=== PATIENT | male | born 1935 | race Caucasian/White ===

== ENCOUNTER 2016-10-10 14:59 | Inpatient (IN) ==
--- NOTE | 2016-10-10 16:03 | Emergency Department Note ---
Disposition Clinical Impression: Syncope and collapse, ANALISA (acute kidney injury), Hyperkalemia Chest pain Qualifiers: Chest pain type: unspecified Qualified Code(s): R07.9 - Chest pain, unspecified Disposition: Admitted As Inpatient Condition: Good Referrals: NO,PCP [Non-Partnered Physician] - Forms: ED Satisfaction Letter Time of Disposition: 18:33 General Adult HPI - General Chief complaint: ED Syncope Stated complaint: Syncope, EKG changes Time Seen by Provider: 10/10/16 15:12 Source: patient, family Limitations: no limitations Nursing Notes Reviewed: Yes Vital Signs Reviewed: Yes - History of Present Illness HPI Narrative: One-month history of periodic syncope.. Also increasing dyspnea on exertion. Episodic chest pain that radiates up his neck and down both arms. Recent episode of syncope was last night. Is unaware of how long he was down in the floor 4. Denies any headaches or neck pain. Describes the chest pain as an ache. Pain Scale: 0 - Related Data Home Medications Medication Instructions Recorded Confirmed Albuterol Sulfate [Ventolin Hfa] 2 puff IH Q4H PRN 10/10/16 10/10/16 Aspirin Enteric Coated [Aspirin EC] 81 mg PO DAILY 10/10/16 10/10/16 Atorvastatin [Lipitor] 40 mg PO HS 10/10/16 10/10/16 Budesonide/Formoterol 160/4.5 2 puff IH BIDR 10/10/16 10/10/16 [Symbicort 160/4.5] Febuxostat [Uloric] 40 mg PO DAILY 10/10/16 10/10/16 Lisinopril [Zestril] 40 mg PO DAILY 10/10/16 10/10/16 Metoprolol [Lopressor] 50 mg PO BID 10/10/16 10/10/16 Sitagliptin Phos/Metformin HCl 1 each PO BID 10/10/16 10/10/16 [Janumet 50-1,000 mg Tablet] Tamsulosin [Flomax] 0.4 mg PO DAILY 10/10/16 10/10/16 Venlafaxine XR (24 HR) [Effexor XR] 150 mg PO DAILY 10/10/16 10/10/16 Vit C/E/Zn/Coppr/Lutein/Zeaxan 1 cap PO BID 10/10/16 10/10/16 [Preservision Areds 2 Softgel] Allergies Allergy/AdvReac Type Severity Reaction Status Date / Time pioglitazone Allergy Swelling Verified 10/10/16 15:05 of Lip/Tongue/Throat canagliflozin [From Invokana] AdvReac Dizziness Verified 10/10/16 15:05 All systems ED: reviewed and negative except as stated. Constitutional: Denies: fever, chills Cardiovascular: Reports: chest pain (Ache that radiates up his neck and down both arms. Not present at this time. Periodic and worse with exertion.), dyspnea on exertion (For one-month increasingly worse.), syncope (Several episodes over the past month. Most recent being last night.). Denies: palpitations Respiratory: Reports: dyspnea (Associated with the chest pain.). Denies: cough Gastrointestinal: Reports: vomiting (One episode last night). Denies: abdominal pain, nausea, diarrhea Genitourinary: Denies: urgency, dysuria, frequency Musculoskeletal: Denies: back pain, neck pain Past Medical History - Past Medical History Attestation: Yes The following information was validated with the patient. Medical history: Reports: asthma, coronary artery disease, diabetes, hyperlipidemia, hypertension, other Psychiatric history: Reports: depression - Social History Smoking Status: Never smoker Alcohol use: Reports: none Drug use: Reports: none Physical Exam - General Limitations: no limitations General appearance: alert, in no apparent distress - Head Head exam: atraumatic, normocephalic, normal inspection - Eye Eye exam: Present: normal appearance, PERRL, EOMI. Absent: scleral icterus - ENT ENT exam: normal exam, normal oropharynx, mucous membranes moist - Neck Neck exam: Present: normal inspection, full ROM, trachea midline - Chest Chest inspection: Present: normal inspection, symmetric chest wall rise - Respiratory Respiratory exam: Present: normal lung sounds bilaterally. Absent: respiratory distress - Cardiovascular Cardiovascular exam: Present: normal rhythm, bradycardia, normal heart sounds - Abdominal Exam Abdominal exam: Present: soft, Non-Tender, normal bowel sounds. Absent: tenderness, distention, guarding, rebound, rigidity, organomegaly - Extremities Exam Extremities exam: Present: normal inspection, full ROM, normal capillary refill. Absent: tenderness, pedal edema - Back Exam Back exam: Present: normal inspection, full ROM. Absent: tenderness - Neurological Exam Neurological exam: Present: alert, oriented X3. Absent: motor sensory deficit - Psychiatric Psychiatric exam: Present: normal affect, normal mood - Skin Skin exam: Present: warm, dry, intact, normal color. Absent: rash, cyanosis Course Course Narrative: Well-appearing very talkative male patient resting comfortably in bed. He has no complaints at this time. He states that approximately a month ago he syncopized while getting out of a car. His neighbors came to his rescue that time. He has been seen by his primary care physician since then and is supposed to have a stress test completed but has not been scheduled. He states that yesterday he was at [facility] and he felt very shaky began to have chest pain that radiated up his neck and down his arms. He had a near syncopal event at that time however states he did not pass out. However after he got home he states he got very nauseated attempted to vomit into the sink and then syncopized. He is unaware of how long he spent on the floor. He denies any headaches or neck pain. He states he cannot find any bruises on his body. He states he has had several syncopal episodes over the past month. He states that every time he gets up and tries to walk he gets very short of breath. His heart tones are normal and lung sounds are clear. Abdomen is soft and nontender. He does not have any edema in any of his extremities. We will do a cardiac workup on the patient, a chest x-ray, and a head CT and anticipate admission. He is agreeable with this plan. He states that he has had a decreased appetite for the past 2 days since he just has not felt like eating. He denies any nausea or vomiting at this time. - Reevaluation(s) Reevaluation #1: We will admit patient for his syncope as well as chest pain. Also new onset ANALISA. Time: 18:32 Vital Signs Temperature 98.1 F 10/10/16 15:06 Pulse Rate 56 10/10/16 15:06 Respiratory Rate 18 10/10/16 15:06 Blood Pressure 144/61 10/10/16 15:06 O2 Sat by Pulse Oximetry 98 10/10/16 15:06 Temperature 98.1 F 10/10/16 15:06 Pulse Rate 60 10/10/16 16:50 Respiratory Rate 16 10/10/16 16:50 Blood Pressure 130/56 10/10/16 16:50 O2 Sat by Pulse Oximetry 98 10/10/16 16:50 Oxygen Delivery Oxygen Delivery Room Air Medical Decision Making - Lab Data Result diagrams: 10/10/16 16:04 Lab Results 10/10/16 10/10/16 10/10/16 Range/Units 16:04 16:04 16:04 Sodium 135 L (136-145) mEq/L Potassium 5.4 H (3.5-4.5) mEq/L Chloride 105 (98-109) mEq/L Carbon Dioxide 21 (19-29) mEq/L BUN 29 H (8-26) mg/dL Creatinine 1.44 H (0.72-1.25) mg/dL Est GFR ( Amer) 57 L (> 60) Est GFR (Non-Af Amer) 47 L (> 60) BUN/Creatinine Ratio 20 (6-26) Glucose 174 H (70-99) mg/dL Calculated Osmolality 290 (280-300) Calcium 9.6 (8.6-10.8) mg/dL Creatine Kinase 126 (30-200) Units/L Troponin I 0.03 (0-0.03) ng/mL Urine Color (Yellow) Urine Clarity (Clear) Urine pH (5.0-8.0) pH Units Ur Specific [place] (1.010-1.025) Urine Protein (Neg-Trace) mg/dL Urine Glucose (UA) (Normal) mg/dL Urine Ketones (Negative) mg/dL Urine Blood (Negative) Urine Nitrite (Negative) Urine Bilirubin (Negative) Urine Urobilinogen (Normal) mg/dL Ur Leukocyte Esterase (Negative) Urine Microscopic RBC (0-3) per hpf Urine Microscopic WBC (0-3) per hpf Ur Squamous Epith Cells (None-Few) per lpf Urine Bacteria (None-Few) per hpf Hyaline Casts (None-Few) per lpf 10/10/16 Range/Units 16:44 Sodium (136-145) mEq/L Potassium (3.5-4.5) mEq/L Chloride (98-109) mEq/L Carbon Dioxide (19-29) mEq/L BUN (8-26) mg/dL Creatinine (0.72-1.25) mg/dL Est GFR ( Amer) (> 60) Est GFR (Non-Af Amer) (> 60) BUN/Creatinine Ratio (6-26) Glucose (70-99) mg/dL Calculated Osmolality (280-300) Calcium (8.6-10.8) mg/dL Creatine Kinase (30-200) Units/L Troponin I (0-0.03) ng/mL Urine Color Yellow (Yellow) Urine Clarity Clear (Clear) Urine pH 5.5 (5.0-8.0) pH Units Ur Specific [place] 1.026 H (1.010-1.025) Urine Protein Trace (Neg-Trace) mg/dL Urine Glucose (UA) >=1000 H (Normal) mg/dL Urine Ketones Trace H (Negative) mg/dL Urine Blood Negative (Negative) Urine Nitrite Negative (Negative) Urine Bilirubin Negative (Negative) Urine Urobilinogen Normal (Normal) mg/dL Ur Leukocyte Esterase Negative (Negative) Urine Microscopic RBC 3-5 H (0-3) per hpf Urine Microscopic WBC 0-3 (0-3) per hpf Ur Squamous Epith Cells Moderate H (None-Few) per lpf Urine Bacteria None Seen (None-Few) per hpf Hyaline Casts None Seen (None-Few) per lpf Attestation Statement - Attestation Attestation: I examined this patient and my medical decision-making was reviewed with the WAREHOUSE PRICING AND INVENTORY CLERK/PA/Advanced Practice Nurse/Resident Physician. I agree with the documented findings, disposition and treatment plan as described except to the extent set forth below.
[2016-10-10 16:30] LABS: Calcium 9.6 mg/dL (8.6-10.8); Potassium 5.4 mEq/L (3.5-4.5)
[2016-10-10] MEDS ORDERED: 0.9 % Sodium Chloride 1,000 ML IVC ONE (16:38)
[2016-10-10 16:59] LABS: Bilirubin,Urine Negative (Negative); Blood,Urine Negative (Negative); Clarity,Urine Clear (Clear); Color,Urine Yellow (Yellow); Glucose,Urine (UA) >=1000 mg/dL (Normal); Ketones,Urine Trace mg/dL (Negative); Leukocyte Esterase,Urine Negative (Negative); Nitrite,Urine Negative (Negative); PH,Urine 5.5 pH Units (5.0-8.0); Protein,Urine Trace mg/dL (Neg-Trace); Specific Gravity,Urine 1.026 (1.010-1.025); Urobilinogen,Urine Normal (Normal)
[2016-10-10 17:02] LABS: Bacteria,Urine None Seen per hpf (None-Few); Hyaline Casts,Urine None Seen per lpf (None-Few); Squamous Epithelial Cell,Urine Moderate per lpf (None-Few); WBC,Urine 0-3 per hpf (0-3)
[2016-10-10] MEDS ORDERED: Calcium Gluconate 1,000 MG in D5% in Water 100 ML IVPB ONE (20:09)
[2016-10-10] MEDS ORDERED: Sodium Bicarbonate 50 MEQ/50 ML VIAL IVP ONE ×2 (20:09→21:30)
[2016-10-10] MEDS ORDERED: Naloxone 0.4 MG/ML INJ IVP PRN (21:05)
[2016-10-10] MEDS ORDERED: Ondansetron ODT 4 MG TAB.RAPDIS SL PRN (21:05)
[2016-10-10] MEDS ORDERED: 0.9 % Sodium Chloride 250 ML ONE (21:38)
[2016-10-10] MEDS: Budesonide/Formoterol 160/4.5 MDI IH SCH (21:58)
[2016-10-10 22:43] LABS: Basophils % 0.1 %; Eosinophils % 0.1 %; Hematocrit 28.8 % (37.5-50.1); Hemoglobin 8.7 g/dL (12.9-16.9); Immature Granulocytes % 0.3 % (0-4); Lymphocytes # 1.7 K/mcL (0.6-4.6); Lymphocytes % 12.5 %; Mean Corpuscular HGB Conc 30.2 g/dL (31.6-35.5); Mean Corpuscular Hemoglobin 25.1 pg (28.0-33.3); Mean Platelet Volume 11.9 fL (9.4-12.4); Monocytes # 1.1 K/mcL (0.0-1.3); Monocytes % 8.2 %; Neutrophils # 10.7 K/mcL (1.6-8.9); Platelet Count 270 K/mcL (140-400); Red Blood Count 3.47 M/mcL (4.19-5.50); Red Cell Distribution Width 15.1 % (11.5-14.5); Segmented Neutrophils % 78.8 %
[2016-10-10] MEDS: 0.9 % Sodium Chloride 1,000 ML IVC SCH (23:00)
--- NOTE | 2016-10-10 23:05 | Event Note ---
Date of Encounter: 10/10/16 Time of Encounter: 23:03 Patient seen examined with nurse practitioner. Patient presents with her current syncopal episodes. Differentials include G.I. bleeding, versus arrhythmias versus hypoglycemia versus orthostasis versus seizures...etc. he had a prior angiogram in 2013 showing noninclusive coronary disease. Will check echocardiogram, carotid Doppler, EEG, serial troponin, cortisol levels in a.m. he has acute kidney injury and hyperkalemia and he will be hydrated. I am concerned about G.I. bleeding. He has a 4 g hemoglobin drop compared to his baseline. He will be started on Protonix 40 mg IV twice daily. Occult blood testing. Gastroenterology consultation. Patient is full code. Hold Aspirin
--- NOTE | 2016-10-10 23:27 | Internal Med History&Physical ---
Date of Encounter: 10/11/16 Time of Encounter: 20:00 Assessment and Plan (1) Syncope and collapse Current visit: Yes Status: Acute Assess: Mr. Perez is a 81 year old male who is from the ED with chief complaint of syncope and collapse. Reports one-month history of periodic syncope and collapse as well as increasing dyspnea with exertion. Also reports episodic chest pain that radiates up his neck and down both arms prior to syncopal episodes. Latest episode of syncope was last night. He was unaware of how long he was unconscious or if he hit his head. Patient also reports pain in the back of his head with latest syncopal episode. Plan: Continuous cardiac telemetry ordered Orthostatic vital signs ordered BID Bilateral carotid Doppler ordered EV echocardiogram ordered EEG ordered Repeat EKG ordered Trend troponins 2 O2 supplementation ordered A.M. cortisol ordered to assess for adrenal insufficiency Fall precautions ordered Up with assist only ordered Cardiac diet ordered Monitor patient's vital signs and monitor for continued signs of syncopal episodes (2) Chest pain Current visit: Yes Status: Acute Assess: Patient presents with chief complaint of syncope and collapse and also reports episodic chest pain that radiates up his neck and down both arms prior to syncopal episodes. Plan: Continuous cardiac telemetry ordered Bilateral carotid Doppler ordered EV echocardiogram ordered EEG ordered Repeat EKG ordered Trend troponins 2 O2 supplementation ordered Fall precautions ordered Up with assist only ordered Cardiac diet ordered Monitor patient's vital signs Qualifiers: Chest pain type: unspecified Qualified Code(s): R07.9 - Chest pain, unspecified (3) Hyperkalemia Current visit: Yes Status: Acute Assess: Patient presents with acute hyperkalemia. Plan: Hold Potassium Follow-up labs ordered for electrolyte imbalance and monitoring Continuous cardiac telemetry ordered Monitor patient's vital signs (4) Hyperlipidemia Current visit: Yes Status: Chronic Assess: Patient presents with history of chronic hyperlipidemia. Plan: Lipid panel ordered Lipitor ordered Monitor follow-up labs Qualifiers: Hyperlipidemia type: unspecified Qualified Code(s): E78.5 - Hyperlipidemia , unspecified (5) Diabetes mellitus Current visit: Yes Status: Chronic Assess: Patient presents with history of chronic diabetes mellitus. 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 Plan: Continue Lopressor Continue lisinopril Monitor patient's vital signs Qualifiers: Hypertension type: essential hypertension Qualified Code(s): I10 - Essential (primary) hypertension (7) DVT prophylaxis Current visit: Yes Status: Acute Assess: DVT prophylaxis contraindicated for this patient due to possible bleed related to 4 g drop in hemoglobin from baseline. Plan: Hold aspirin Heparin contraindicated Anti-embolic stockings ordered Internal Medicine - H&P: HPI Chief complaint: Syncope and collapse Admitted From: Emergency Dept Plans for Post Hospital Care: Home History of present illness: Mr. Perez is a 81 year old male who is from the ED with chief complaint of syncope and collapse. Reports one-month history of periodic syncope and collapse as well as increasing dyspnea with exertion. Also reports episodic chest pain that radiates up his neck and down both arms prior to syncopal episodes. Latest episode of syncope was last night. He was unaware of how long he was unconscious or if he hit his head. Patient also reports pain in the back of his head with latest syncopal episode. Mr. Perez has a history of asthma, coronary artery disease, diabetes, hyperlipidemia, hypertension, SOB, and syncope. Also reports becoming diaphoretic during syncopal episodes. Mr. Perez states he has had reduced appetite within the past month as well. Patient's workup to include possibilities for cardiac related issues, orthostatic hypotension, hyperglycemia, and/or seizures. Concern regarding possible bleed related to 4 g hemoglobin drop from patient's baseline. Placed on continuous cardiac telemetry, O2 supplementation with titration if SPO2 less than 92%, and continuous monitoring of vitals. Ordered orthostatic vitals, echocardiogram, bilateral carotid Doppler, EEG, serial troponins 2, and a.m. cortisol levels have been placed. Patient's aspirin to be held as well as DVT prophylaxis due to possible bleeding. Gastroenterology consultation ordered. Patient also received Protonix 40 mg IVP twice a day. Patient and patient's vital signs to be monitored closely. Patient placed as bedrest with fall precautions and up with assist only. Past Med Surg Social Fam HX - Past Medical History Medical history: asthma, coronary artery disease, diabetes, hyperlipidemia, hypertension, other Psychiatric history: depression - Past Surgical History Surgical History: no surgical history - Social History Smoking Status: Never smoker Smokeless Tobacco Status: No Alcohol use: none Drug use: none Occupational status: retired Current living situation: Home - Independent Activity Level: Independent ambulation Recent Out of Country Travel Within the Last 8 Weeks: No Exposure or Possible Exposure to Illness During Travel: No Internal Medicine - H&P: Meds Albuterol Sulfate [Ventolin Hfa] 2 puff IH Q4H PRN 10/10/16 [History] Aspirin Enteric Coated [Aspirin EC] 81 mg PO DAILY 10/10/16 [History] Atorvastatin [Lipitor] 40 mg PO HS 10/10/16 [History] Budesonide/Formoterol 160/4.5 [Symbicort 160/4.5] 2 puff IH BIDR 10/10/16 [ History] Febuxostat [Uloric] 40 mg PO DAILY 10/10/16 [History] Lisinopril [Zestril] 40 mg PO DAILY 10/10/16 [History] Metoprolol [Lopressor] 50 mg PO BID 10/10/16 [History] Sitagliptin Phos/Metformin HCl [Janumet 50-1,000 mg Tablet] 1 each PO BID [History] Tamsulosin [Flomax] 0.4 mg PO DAILY 10/10/16 [History] Venlafaxine XR (24 HR) [Effexor XR] 150 mg PO DAILY 10/10/16 [History] Vit C/E/Zn/Coppr/Lutein/Zeaxan [Preservision Areds 2 Softgel] 1 cap PO BID 10/10 [History] Allergies pioglitazone Allergy (Verified 10/10/16 15:05) Swelling of Lip/Tongue/Throat canagliflozin [From Invokana] Adverse Reaction (Verified 10/10/16 15:05) Dizziness All Systems PM: A 10-system review of systems was performed and is negative for pertinent findings except as documented above in the HPI. - Constitutional Constitutional: as per HPI, anorexia, falls - EENT Eyes: no change in vision, no discharge, no pain, no photophobia Ears: no ear discharge, no ear pain, no tinnitus Nose, mouth and throat: no dysphagia, no nasal discharge, no neck pain, no sore throat - Breasts Breasts: as per HPI - Cardiovascular Cardiovascular ROS IM: as per HPI, chest pain, diaphoresis, dyspnea, lightheadedness, palpitations, syncope - Respiratory Respiratory: as per HPI, dyspnea on exertion - Gastrointestinal Gastrointestinal: as per HPI, nausea - Genitourinary Genitourinary ROS male: as per HPI - Musculoskeletal Musculoskeletal ROS IM: as per HPI, neck pain - Integumentary Integumentary IM: no rash, no unusual bruising - Neurological Neurological ROS: as per HPI, dizziness, frequent falls, headache(s), weakness - Psychiatric Psychiatric: as per HPI - Endocrine Endocrine IM: as per HPI - Hematologic/Lymphatic Hematologic/Lymphatic: no easy bruising - Allergic/Immunologic Allergic/Immunologic: as per HPI - Constitutional Vitals: Temp Pulse Resp BP Pulse Ox 97.9 F 66 16 0/0 96 10/10/16 18:20 10/10/16 18:20 10/10/16 21:58 10/10/16 19:18 10/10/16 21:58 General appearance: Present: cooperative, A&O X 3, pleasant, no acute distress, obese, answers questions appropriately - Head Head exam: Present: atraumatic, normocephalic - Eye Eye exam: Present: PERRL, conjuntiva pink, sclera anicteric Pupils: Present: PERRL - ENT ENT exam: Present: normal exam, normal external ear exam - Neck Neck exam general surgery: Present: supple, trachea midline. Absent: lymphadenopathy - Respiratory Respiratory exam: Present: CTAB. Absent: accessory muscle use, rales, rhonchi, wheezes - Cardiovascular Cardiovascular exam: Present: irregular rhythm (Irregular rhythm heard on auscultation.) - GI/Abdominal GI/Abdominal exam: Present: normal bowel sounds, soft, no peritoneal signs. Absent: distended, tenderness - Rectal Rectal exam: Present: deferred - Additional comments: exam deferred. - Extremities Exam Extremities exam: Present: normal capillary refill, normal inspection, warm, radial pulses palpable and symetrical. Absent: calf tenderness, cyanotic, pedal edema - Back Exam Back exam: Present: normal inspection - Neurological Exam Neurological exam: Present: CN II-XII intact, oriented X3, no focal deficits. Absent: pronater drift, facial droop, speech deficit - Psychiatric Psychiatric exam: Present: normal affect, normal mood - Skin Skin exam: Present: dry, intact Internal Med - H&P Results - Labs CBC & Chem 7: 10/10/16 16:04 10/10/16 16:04 Labs: Cardiac Enzymes 10/10/16 Range/Units 21:47 Troponin I 0.02 (0-0.03) ng/mL - Diagnostic Studies CT scan - head Additional comments: CT of the head without contrast dated 10/10/16 shows: BRAIN/VENTRICLES: The ventricles and sulci are diffusely enlarged. Low attenuation is seen in the periventricular and subcortical white matter. No acute intracranial hemorrhage or acute infarct is identified. ORBITS: The visualized portion of the orbits demonstrate no acute abnormality. SINUSES: Visualized paranasal sinuses and mastoid air cells demonstrate no acute abnormality. SOFT TISSUES/SKULL: No acute abnormality of the visualized skull or soft tissues. OVERALL IMPRESSION: No acute intracranial abnormality. Diffuse atrophic changes with findings suggesting chronic microvascular ischemia. Chest x-ray Additional comments: 2-View CXR dated 10/10/16 shows: The cardiac silhouette appears at the upper limit of normal for size. A calcified granuloma is seen within the right lower lung. Otherwise, no focal consolidation. There appears to be a trace right pleural effusion. No pneumothorax. No acute osseous abnormality. OVERALL IMPRESSION: Cardiac silhouette appears upper limits of normal for size. Trace right pleural effusion. No acute abnormality identified within the left lung.
[2016-10-10] MEDS: Pantoprazole 40 MG VIAL IVP SCH ×2 (23:54→23:55)
[2016-10-11] MEDS ORDERED: *HR* Heparin 5,000 UNIT/ML VIAL SQ SCH
[2016-10-11 04:01] LABS: Hematocrit 25.4 % (37.5-50.1); Hemoglobin 7.9 g/dL (12.9-16.9)
[2016-10-11 04:16] LABS: Albumin 3.2 g/dL (3.5-5.0); Albumin/Globulin Ratio 1.1 (1.1-2.2); Bilirubin,Total 0.6 mg/dL (0.2-1.2); Chol/HDL Ratio 2.7 (0-4.9); Globulin 2.8 g/dL (2.4-3.5); Magnesium 1.7 mg/dL (1.6-2.6); Potassium 4.5 mEq/L (3.5-4.5)
[2016-10-11] MEDS: Pantoprazole 40 MG VIAL IVP SCH ×2 (05:11→17:15)
[2016-10-11] MEDS: Budesonide/Formoterol 160/4.5 MDI IH SCH ×2 (07:40→21:38)
[2016-10-11] MEDS: Insulin LISPRO 300 UNITS/3 ML VIAL SQ SCH ×3 (07:52→17:12)
[2016-10-11] MEDS: Venlafaxine XR (24 HR) 150 MG CAP.ER.24H PO SCH (07:52)
[2016-10-11] MEDS: 0.9 % Sodium Chloride 1,000 ML IVC SCH ×2 (07:52→21:00)
[2016-10-11] MEDS ORDERED: (Febuxostat [Uloric] 40 MG) PO SCH (09:00)
[2016-10-11] MEDS ORDERED: [UNRECOGNIZED DRUG - OTHER] PO SCH (09:00)
[2016-10-11] MEDS ORDERED: Lisinopril 20 MG TABLET PO SCH (09:00)
[2016-10-11] MEDS ORDERED: Aspirin Enteric Coated 81 MG Tablet PO SCH (09:00)
[2016-10-11] MEDS ORDERED: *HR* SitaGLIPtin 25 MG TABLET PO SCH (09:00)
[2016-10-11] MEDS ORDERED: *HR* Metformin 500 MG TABLET PO SCH (09:00)
--- NOTE | 2016-10-11 12:42 | Gastroenterology Consult Note ---
<PembertonHay bullard Juan - Last Filed: 10/11/16 12:39> Date of Encounter: 10/11/16 Time of Encounter: 11:30 - Assessment and plan (1) Anemia Current Visit: Yes Status: Acute Assessment and plan: Hgb 12.5 on 06/19/2016, on admission Hgb 8.7 and 7.9 this AM. Continue to monitor CBC and transfuse PRBC as needed. Plan for EGD tonight after Dr. Sena's office hours. Keep NPO until EGD. Depending on EGD results, plan for colonoscopy tomorrow. Following EGD, clear liquid diet, no red or purple. NPO at midnight. If unable tolerate NuLytely please use MiraLAX prep. If not clear by 6 AM, give 2 tap water enemas. Qualifiers: Anemia type: unspecified type Qualified Code(s): D64.9 - Anemia, unspecified (2) Syncope and collapse Current Visit: Yes Status: Acute Assessment and plan: Management per primary team. - Time Spent With Patient Total time spent is greater than 50% in coordination of care (as documented) at patient's floor/unit and/or counseling patient: GI History of Present Illness - Data of Consult Patient: new to practice Consult date: 10/11/16 Requesting Physician: Devora Carrillo CNP - Consult Narrative Reason for consult: anemia History of present illness: Mr. Perez is a 81 year old male with PMHx of asthma, CAD, DM, HLD, HTN who presented to the ED with one month history of periodic syncope and collapse. He also reports episodic chest pain that radiates up his neck and down both arms prior to syncopal episodes. His latest episode of syncope was the night before admission. We have been consulted for evaluation of his anemia. Hgb in May 2016 was 12.5. On admission, Hgb 8.7 and was 7.9 this AM. He denies melena or hematochezia, but also states that he does not "look very much". Procedures: None NSAIDs: ASA Anticoagulation: None Past Med Surg Social Fam HX - Past Medical History Medical history: asthma, coronary artery disease, diabetes, hyperlipidemia, hypertension, other Psychiatric history: depression - Past Surgical History Surgical History: no surgical history - Social History Smoking Status: Never smoker Smokeless Tobacco Status: No Alcohol use: none Drug use: none - Gastrointestinal Gastrointestinal: Present: as per HPI - Constitutional Constitutional: as per HPI - Cardiovascular Cardiovascular ROS: Present: as per HPI - Respiratory Respiratory IM: Present: as per HPI - Genitourinary Genitourinary: Absent: change in color, Urinary frequency - Neurological ROS Neurological GI: Present: as per HPI - Hematologic/Lymphatic Hematologic/Lymphatic pediatric: Present: as per HPI - Musculoskeletal Musculoskeletal ROS GI: Present: as per HPI - Integumentary Integumentary GI: Present: as per HPI - Psychiatric ROS Psychiatric GI: Present: as per HPI - Endocrine Endocrine IM: Present: as per HPI - Constitutional Vitals: Temp Pulse Resp BP Pulse Ox 97.8 F 72 16 147/69 92 10/11/16 11:15 10/11/16 11:15 10/11/16 11:15 10/11/16 11:15 10/11/16 11:15 General appearance: Present: cooperative, A&O X 3, no acute distress, answers questions appropriately - Head Head exam: Present: atraumatic, normocephalic - Eye Eye exam: Present: normal appearance, sclera anicteric - ENT ENT exam: Present: mucous membranes dry - Neck Neck exam general surgery: Present: normal inspection, trachea midline - Respiratory Respiratory exam: Present: CTAB. Absent: rales, rhonchi - Cardiovascular Cardiovascular exam: Present: RRR, +S1, +S2 - GI/Abdominal GI/Abdominal exam: Present: soft, no peritoneal signs. Absent: distended, firm , guarding, tenderness - Rectal Rectal exam: Present: deferred - Extremities Exam Extremities exam: Present: warm - Neurological Exam Neurological exam: Present: no focal deficits - Psychiatric Psychiatric exam: Present: normal affect, normal mood - Skin Skin exam: Present: dry, intact, normal color, warm Results - Labs CBC & Chem 7: 10/11/16 02:59 10/11/16 02:59 Labs: Last Result Calcium 9.0 mg/dL (8.6-10.8) 10/11/16 02:59 Troponin I 0.02 ng/mL (0-0.03) 10/11/16 02:59 Triglycerides 105 mg/dL (< 150) 10/11/16 02:59 Entire Visit Hgb 7.9 g/dL (12.9-16.9) L 10/11/16 02:59 Hct 25.4 % (37.5-50.1) L 10/11/16 02:59 Total Bilirubin 0.6 mg/dL (0.2-1.2) 10/11/16 02:59 AST 20 Units/L (5-34) 10/11/16 02:59 ALT 22 Units/L (0-55) 10/11/16 02:59 Consult Discharge Plan - Plan Referrals: Buck Stroud MD [Primary Care Provider] - <Real Sena - Last Filed: 10/11/16 18:46> Date of Encounter: 10/11/16 Time of Encounter: 17:00 - Time Spent With Patient Total time spent is greater than 50% in coordination of care (as documented) at patient's floor/unit and/or counseling patient: GI History of Present Illness - Data of Consult Requesting Physician: Devora Carrillo CNP - Consult Narrative History of present illness: Mr. Perez is a 81 year old male - Constitutional Vitals: Temp Pulse Resp BP Pulse Ox 98.1 F 89 24 188/73 90 10/11/16 18:36 10/11/16 18:36 10/11/16 18:36 10/11/16 18:36 10/11/16 18:36 Results - Labs CBC & Chem 7: 10/11/16 02:59 10/11/16 02:59 Labs: Last Result Calcium 9.0 mg/dL (8.6-10.8) 10/11/16 02:59 Troponin I 0.02 ng/mL (0-0.03) 10/11/16 02:59 Triglycerides 105 mg/dL (< 150) 10/11/16 02:59 Entire Visit Hgb 7.9 g/dL (12.9-16.9) L 10/11/16 02:59 Hct 25.4 % (37.5-50.1) L 10/11/16 02:59 Total Bilirubin 0.6 mg/dL (0.2-1.2) 10/11/16 02:59 AST 20 Units/L (5-34) 10/11/16 02:59 ALT 22 Units/L (0-55) 10/11/16 02:59 - Attending Attestation I examined this patient and my medical decision-making was reviewed with the CORPORATE COMMUNICATIONS MANAGER/PA/Advanced Practice Nurse/Resident Physician. I agree with the documented findings, disposition and treatment plan as described except to the extent set forth below.
--- NOTE | 2016-10-11 12:56 | Electrocardiograph Report ---
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
--- NOTE | 2016-10-11 13:00 | EEG/EMG/Oth Biometrics Report ---
EEG Procedure Report EEG Procedure: Routine EEG Procedure Note: This is a portable 21 channel bipolar and referential montage EEG one an individual who was had an episode of syncope. The posterior dominant rhythm consisted of mixed low-voltage theta and alpha frequencies ranging from 6-7-8 Hz. She does not attenuate with eye opening. Frequencies are identified anteriorly. Hyperventilation was not performed during the recording. Periods of drowsiness and stage II sleep are identified as reference by dropout of the posterior dominant rhythm and emergence of vertex activity, K complexes and sleep spindles. Photic stimulation is performed and does not produce a driving response. The EKG rhythm strip reveals normal sinus rhythm at 72 beats per minute. Impressions: This EEG recording is abnormal and is consistent with a mild generalized encephalopathy. There is no evidence of epileptiform activity identified during the recording. Comment: A normal EEG does not preclude the diagnosis of seizure or epilepsy. If the clinical suspicion for seizure activity is high, serial EEGs or perhaps a prolonged recording may increase the yield. Please correlate clinically. The documentation in the history of HPI and plan were at least partially created by [employer] voice recognition technology by Dr. Trammell. Errors in grammar, wording or other phrases may exist. If errors are found after the documentation signed, they will be addressed individually in the addendum section of this document when appropriate.
--- NOTE | 2016-10-11 13:31 | Internal Med Progress Note ---
Date of Encounter: 10/11/16 Time of Encounter: 13:26 - Assessment and plan (1) Anemia Current Visit: Yes Status: Acute Assessment and plan: Patient is a hemoglobin of 12.5 on . Patient admitted for syncope. Noted that upon admission the hemoglobin is 8.7 and this morning 7.9. Likely cause of syncopal episode is anemia: This is symptomatic anemia. Plan: Transfusion of 2 packed red blood cells. IV PPI 40 mg twice a day. GI consult appreciated: Possible EGD this evening. Depending on EGD findings, colonoscopy tomorrow. Qualifiers: Anemia type: unspecified type Qualified Code(s): D64.9 - Anemia, unspecified (2) Syncope and collapse Current Visit: Yes Status: Acute Assessment and plan: Syncope and collapse: Noted that patient is getting EEG. Also noted that patient has a order for echocardiogram/ultrasound carotid. In my opinion, this syncope and collapse is likely secondary to anemia. (3) Chest pain Current Visit: Yes Status: Acute Assessment and plan: Chest pain is likely produced by demand ischemia. Transfuse 2 packed red blood cells. Qualifiers: Chest pain type: unspecified Qualified Code(s): R07.9 - Chest pain, unspecified (4) Hypertension Current Visit: Yes Status: Chronic Assessment and plan: We will hold antihypertensives for now. Qualifiers: Hypertension type: essential hypertension Qualified Code(s): I10 - Essential (primary) hypertension (5) DVT prophylaxis Current Visit: Yes Status: Acute Assessment and plan: No pharmacological DVT prophylaxis. SCD. Medical decision making: This patient has moderate to severe risk of worsening in spite of being on appropriate therapy due to the underlying gastrointestinal issue. - Subjective Interval history: Patient seen and examined. Patient comfortably sitting the pain abated. His getting ready for his EEG. At this point patient denies dizziness, lightheadedness or palpitation. - Constitutional Vitals: Temp Pulse Resp BP Pulse Ox 97.8 F 72 16 147/69 92 10/11/16 11:15 10/11/16 11:15 10/11/16 11:15 10/11/16 11:15 10/11/16 11:15 General appearance: Present: cooperative, A&O X 3, pleasant, no acute distress, obese, answers questions appropriately - Head Head exam: Present: atraumatic, normocephalic - Eye Eye exam: Present: PERRL, conjuntiva pink, sclera anicteric Pupils: Present: PERRL - Neck Neck exam general surgery: Present: supple, trachea midline. Absent: lymphadenopathy - Respiratory Respiratory exam: Present: CTAB. Absent: accessory muscle use, rales, rhonchi, wheezes - Cardiovascular Cardiovascular exam: Present: RRR, +S1, +S2. Absent: diastolic murmur, gallop, rubs, systolic murmur - GI/Abdominal GI/Abdominal exam: Present: normal bowel sounds, soft, no peritoneal signs. Absent: distended, tenderness - Extremities Exam Extremities exam: Present: warm, radial pulses palpable and symetrical. Absent : calf tenderness, cyanotic, pedal edema - Neurological Exam Neurological exam: Present: CN II-XII intact, oriented X3, no focal deficits. Absent: pronater drift, facial droop, speech deficit - Skin Skin exam: Present: dry, intact Internal Medicine: Result - Labs CBC & Chem 7: 10/11/16 02:59 10/11/16 02:59 Labs: Short CBC 10/11/16 Range/Units 02:59 Hgb 7.9 L (12.9-16.9) g/dL Hct 25.4 L (37.5-50.1) % BMP 10/11/16 02:59 Sodium 134 L Potassium 4.5 Chloride 105 Carbon Dioxide 21 BUN 26 Creatinine 1.44 H Glucose 245 H Calcium 9.0 Cardiac Enzymes 10/11/16 Range/Units 02:59 Troponin I 0.02 (0-0.03) ng/mL Liver Function 10/11/16 Range/Units 02:59 Total Bilirubin 0.6 (0.2-1.2) mg/dL AST 20 (5-34) Units/L ALT 22 (0-55) Units/L Alkaline Phosphatase 104 (38-126) Units/L Albumin 3.2 L (3.5-5.0) g/dL - VTE Documentation of Mechanical Device: Graduated compression elastic hosiery Consult Discharge Plan - Plan Referrals: Buck Stroud MD [Primary Care Provider] -
[2016-10-11] MEDS ORDERED: 0.9 % Sodium Chloride 250 ML ONE ×2 (15:32→19:46)
--- NOTE | 2016-10-11 16:46 | Neurology Progress Note ---
Date of Encounter: 10/11/16 Time of Encounter: 16:33 Assessment and Plan (1) Syncope and collapse Current Visit: Yes Status: Acute This likely related to ongoing medical conditions. It is noted that the patient has nausea vomiting before losing his consciousness. Also has quite significant SOB on exertion but at the same muscle power appears intact. Patient has significant anemia and renal insufficiency which contribute to weakness. Certainly need cardiac work up including stenotic valvular disease or cardiac dysarrhythmia. Symptoms not consistent with seizures. it would be however, useful to get carotid artery duplex study to rule out bilateral carotid artery stenosis. Please continue medical and supportive care Subjective Principal diagnosis: Syncope Interval history: This is an 81 year old man with PMH significant for HTN, Gout, Asthma, DM, CAD, BPH, depression and recurrent syncope who developed another episode of syncope. Patient interviewed in the presence of his daughter, granddaughter and son. Patient has had recurrent episodes of syncope in the last few years, but it seemed that he has been having more frequent episode in the last few months. Son relates that on last Saturday [facility] was [facility] he was moving grocery with a cart and he started feeling weak, dizzy and also pain involving his shoulders and arms and had to stop moving. He however, did not pass out. yesterday, he somehow developed dizziness, nausea and went to kitchen sink trying to throw up but this was the last thing he remembered. Not sure how long he was out. He has had more of the episodes without witnessed but occasional witnessed episode he would be out for few minutes, daughter says. Patient says that prior to passing out he could not breathe. These SOB symptoms usually occur abruptly and it occurs before he passes out. Son also mentions that the patient has been experiencing exertional SOB and he likes to sit down and once he sits down he would be doing okay. When he stands up and walks he develops chest pain as well. EEG showed diffuse background slowing but no seizure or epileptiform discharges. Patient found to be significantly anemic, with elevated creatinine level. CT of head showed no acute intracranial abnormality. At the time of this interview, patient is weak but no focal neurological deficits. Muscle strength is 5/5 Objective - Constitutional Vitals: Temp Pulse Resp BP Pulse Ox 98.3 F 85 18 173/78 92 10/11/16 16:10 10/11/16 16:10 10/11/16 16:10 10/11/16 16:10 10/11/16 16:10 General appearance: Present: cooperative, A&O X 3, no acute distress, answers questions appropriately - Neurological Exam Sensorimotor examination: Present: intact Motor Examination: Present: grossly full strength in all extremities Motor examination - right side: 5/5: deltoids, biceps, triceps, wrist flexion, wrist extension, hospital cna, hip flexors, tibialis Anterior, quadriceps, toe extension (EHL), plantarflexion Motor examination - left side: 5/5: deltoids, biceps, triceps, wrist flexion, wrist extension, hip flexors, hospital cna, quadriceps, tibialis Anterior, toe extension (EHL), plantarflexion Sensation intact: Present: intact Posture: Present: other Reflex and gait examination: other (gait not assessed) Reflexes: Biceps: 2+, Triceps: 2+, Brachioradialis: 2+, Patella: 3+, Achilles: 3 + Mental Status Examination: Present: awake, alert, oriented to person, oriented to place, oriented to time, follows commands appropriately, answers questions appropriately, no agnosia, no aphasia, no aproxia, lucid Cranial nerve examination: Present: PERRL, EOMI, visual rice intact, corneal reflexes brisk symmetrically, sensory to face intact, mastication intact, no facial asymmetry is present, no dysarthria, hearing is intact symmetrically, soft palate elevates bilaterally upon phonation, gag reflex intact, tongue protrudes midline - VTE Documentation of Mechanical Device: Graduated compression elastic hosiery Results - Laboratory Findings CBC and BMP: 10/11/16 02:59 10/11/16 02:59 Abnormal lab findings: Abnormal lab results WBC 13.5 K/mcL (4.3-11.1) H 10/10/16 16:04 RBC 3.47 M/mcL (4.19-5.50) L 10/10/16 16:04 Hgb 7.9 g/dL (12.9-16.9) L 10/11/16 02:59 Hct 25.4 % (37.5-50.1) L 10/11/16 02:59 MCH 25.1 pg (28.0-33.3) L 10/10/16 16:04 MCHC 30.2 g/dL (31.6-35.5) L 10/10/16 16:04 RDW 15.1 % (11.5-14.5) H 10/10/16 16:04 Neutrophils # 10.7 K/mcL (1.6-8.9) H 10/10/16 16:04 Sodium 134 mEq/L (136-145) L 10/11/16 02:59 Creatinine 1.44 mg/dL (0.72-1.25) H 10/11/16 02:59 Est GFR ( Amer) 57 (> 60) L 10/11/16 02:59 Est GFR (Non-Af Amer) 47 (> 60) L 10/11/16 02:59 Glucose 245 mg/dL (70-99) H 10/11/16 02:59 POC Glucose 261 (58-89) H 10/11/16 11:18 Albumin 3.2 g/dL (3.5-5.0) L 10/11/16 02:59 HDL Cholesterol 30 mg/dL (40-59) L 10/11/16 02:59 Ur Specific Dumont 1.026 (1.010-1.025) H 10/10/16 16:44 Urine Glucose (UA) >=1000 mg/dL (Normal) H 10/10/16 16:44 Urine Ketones Trace mg/dL (Negative) H 10/10/16 16:44 Urine Microscopic RBC 3-5 per hpf (0-3) H 10/10/16 16:44 Ur Squamous Epith Cells Moderate per lpf (None-Few) H 10/10/16 16:44 Consult Discharge Plan - Plan Referrals: Buck Stroud MD [Primary Care Provider] -
[2016-10-11] MEDS ORDERED: *HR* FentaNYL (PF) 100 MCG/2 ML VIAL ONE (18:54)
[2016-10-11] MEDS ORDERED: *HR* Midazolam HCl 5 MG/5 ML VIAL IVP ONE (18:54)
[2016-10-11] MEDS ORDERED: Simethicone 40 MG/0.6 ML MLS IR ONE (18:55)
[2016-10-11] MEDS ORDERED: Tetracaine/Benzocaine/Butamben 200MG/SPRAY (100SPY/BOT) MM ONE (18:55)
[2016-10-11] MEDS ORDERED: SODIUM CHLORIDE/NAHCO3/KCL/PEG 4,000 ML SOLN.RECON PO ONE (19:00)
[2016-10-11] MEDS: *HR* FentaNYL (PF) 100 MCG/2 ML VIAL IVP PRN ×3 (19:15→19:23)
[2016-10-11] MEDS: *HR* Midazolam HCl 5 MG/5 ML VIAL IVP PRN ×3 (19:15→19:23)
[2016-10-12] MEDS ORDERED: Furosemide 40 MG/4 ML VIAL IVP ONE ×2 (01:35→06:00)
[2016-10-12] MEDS ORDERED: Haloperidol Lactate 5 MG/ML VIAL IVP ONE (01:35)
[2016-10-12] MEDS ORDERED: Acetaminophen 325 MG TABLET PO ONE (01:40)
[2016-10-12] MEDS ORDERED: *HR* Metoprolol 5 MG/5 ML VIAL IVP STA (02:16)
[2016-10-12] MEDS: Pantoprazole 40 MG VIAL IVP SCH ×2 (05:33→18:06)
[2016-10-12] MEDS: *HR* Metoprolol 5 MG/5 ML VIAL IVP PRN ×2 (05:55→18:42)
[2016-10-12 06:30] LABS: Basophils % 0.3 %; Eosinophils % 0.1 %; Hematocrit 35.9 % (37.5-50.1); Lymphocytes % 7.7 %; Mean Corpuscular HGB Conc 31.2 g/dL (31.6-35.5); Mean Corpuscular Hemoglobin 25.3 pg (28.0-33.3); Mean Corpuscular Volume 81.2 fL (83.0-100.0); Mean Platelet Volume 10.5 fL (9.4-12.4); Monocytes # 0.9 K/mcL (0.0-1.3); Neutrophils # 11.2 K/mcL (1.6-8.9); Nucleated Red Blood Cells 0.3 /100 WBC (0); Platelet Count 227 K/mcL (140-400); Red Blood Count 4.42 M/mcL (4.19-5.50); Red Cell Distribution Width 14.9 % (11.5-14.5); Segmented Neutrophils % 83.9 %
[2016-10-12 06:32] LABS: Hemoglobin 11.2 g/dL (12.9-16.9)
[2016-10-12 06:49] LABS: Alanine Aminotransferase 20 Units/L (0-55); Albumin 3.3 g/dL (3.5-5.0); Alkaline Phosphatase 113 Units/L (38-126); Aspartate Amino Transferase 20 Units/L (5-34); BUN/Creatinine Ratio 15 (6-26); Blood Urea Nitrogen 18 mg/dL (8-26); Calcium 9.3 mg/dL (8.6-10.8); Carbon Dioxide 19 mEq/L (19-29); Chloride 105 mEq/L (98-109); Globulin 3.4 g/dL (2.4-3.5); Glucose 190 mg/dL (70-99); Magnesium 1.3 mg/dL (1.6-2.6); Osmolality,Calculated 289 (280-300); Phosphorous 3.6 mg/dL (2.3-4.7); Potassium 4.2 mEq/L (3.5-4.5); Sodium 136 mEq/L (136-145); Total Protein 6.7 g/dL (6.0-8.3); eGFR For African Americans > 60 (> 60); eGFR For Non-African Americans 57 (> 60)
[2016-10-12 06:57] LABS: Bilirubin,Total 2.3 mg/dL (0.2-1.2)
[2016-10-12 09:20] LABS: ABG Base Excess 2.1 mEq/L (-2.0 to 3.0); ABG HCO3 25.5 mEQ/L (21-27); ABG Oxygen Saturation 96 % (95-98); ABG PCO2 35 mmHg (35-45); ABG PH 7.47 pH Units (7.32-7.45); ABG PO2 79 mmHg (85-104); ABG TCO2 26.6 mEq/L (20-26); Blood Gas FiO2 45 %
[2016-10-12] MEDS: Multivit/Ca/Min/Fe/FA 1 TAB TABLET PO SCH (10:00)
[2016-10-12] MEDS: Venlafaxine XR (24 HR) 150 MG CAP.ER.24H PO SCH (10:01)
[2016-10-12] MEDS: Insulin LISPRO 300 UNITS/3 ML VIAL SQ SCH ×3 (10:01→18:06)
[2016-10-12] MEDS: Budesonide/Formoterol 160/4.5 MDI IH SCH ×2 (10:28→22:13)
--- NOTE | 2016-10-12 12:19 | Gastroenterology Progress Note ---
Date of Encounter: 10/12/16 Time of Encounter: 10:20 - Assessment and plan (1) Anemia Current Visit: Yes Status: Acute Assessment and plan: Continue to monitor CBC and transfuse PRBC as needed. EGD with 12 mm pedunculated polyp removed from the pylorus. No indication for colonoscopy at this time, however may complete this as an outpatient. Qualifiers: Anemia type: unspecified type Qualified Code(s): D64.9 - Anemia, unspecified (2) Syncope and collapse Current Visit: Yes Status: Acute Assessment and plan: Management per primary team. - Time Spent With Patient Total time spent is greater than 50% in coordination of care (as documented) at patient's floor/unit and/or counseling patient: - Subjective Interval history: Pt is sitting on side of bed eating breakfast. He reports feeling well and is without acute complaint at this time. - Constitutional Vitals: Temp Pulse Resp BP Pulse Ox 98.6 F 91 18 130/75 98 10/12/16 11:38 10/12/16 11:38 10/12/16 11:38 10/12/16 11:38 10/12/16 11:38 General appearance: Present: cooperative, A&O X 3, no acute distress, answers questions appropriately - Head Head exam: Present: atraumatic, normocephalic - Eye Eye exam: Present: normal appearance, sclera anicteric - ENT ENT exam: Present: mucous membranes moist - Neck Neck exam general surgery: Present: normal inspection, trachea midline - Respiratory Respiratory exam: Present: decreased breath sounds, CTAB. Absent: rales, rhonchi - Cardiovascular Cardiovascular exam: Present: RRR, +S1, +S2 - GI/Abdominal GI/Abdominal exam: Present: soft, no peritoneal signs. Absent: distended, firm , guarding, tenderness - Rectal Rectal exam: Present: deferred - Extremities Exam Extremities exam: Present: warm - Neurological Exam Neurological exam: Present: no focal deficits - Psychiatric Psychiatric exam: Present: normal affect, normal mood - Skin Skin exam: Present: dry, intact, normal color, warm Results - Labs CBC & Chem 7: 10/12/16 06:14 10/12/16 06:14 Labs: Last Result Calcium 9.3 mg/dL (8.6-10.8) 10/12/16 06:14 Troponin I 0.02 ng/mL (0-0.03) 10/11/16 02:59 Triglycerides 105 mg/dL (< 150) 10/11/16 02:59 Entire Visit Hgb 11.2 g/dL (12.9-16.9) L D 10/12/16 06:14 Hct 35.9 % (37.5-50.1) L 10/12/16 06:14 Total Bilirubin 2.3 mg/dL (0.2-1.2) H D 10/12/16 06:14 AST 20 Units/L (5-34) 10/12/16 06:14 ALT 20 Units/L (0-55) 10/12/16 06:14 - ABG ABG results: ABG ABG pH 7.47 pH Units (7.32-7.45) H 10/12/16 08:20 ABG pCO2 35 mmHg (35-45) 10/12/16 08:20 ABG pO2 79 mmHg (85-104) L 10/12/16 08:20 ABG O2 Saturation 96 % (95-98) 10/12/16 08:20 - Impressions Impressions Chest X-Ray 10/12/16 06:00 IMPRESSION: Worsening compared with the previous evaluation with onset of pulmonary edema, left lower lobe atelectatic changes and small bilateral effusions. CHF is likely. D/ / 10/12/2016 07:26:46 Susan Monteiro MD / raven Interpreting Provider: Susan Monteiro MD - VTE Documentation of Mechanical Device: Graduated compression elastic hosiery Consult Discharge Plan - Plan Referrals: Buck Stroud MD [Primary Care Provider] -
--- NOTE | 2016-10-12 13:12 | Internal Med Progress Note ---
Date of Encounter: 10/12/16 Time of Encounter: 08:30 - Constitutional Vitals: Temp Pulse Resp BP Pulse Ox 98.6 F 91 18 130/75 98 10/12/16 11:38 10/12/16 12:34 10/12/16 12:34 10/12/16 12:34 10/12/16 12:34 General appearance: Present: cooperative, A&O X 3, pleasant, no acute distress, obese, answers questions appropriately Internal Medicine: Result - Labs CBC & Chem 7: 10/12/16 06:14 10/12/16 06:14 Labs: Short CBC 10/12/16 Range/Units 06:14 WBC 13.3 H (4.3-11.1) K/mcL Hgb 11.2 L D (12.9-16.9) g/dL Hct 35.9 L (37.5-50.1) % Plt Count 227 (140-400) K/mcL Neutrophils # 11.2 H (1.6-8.9) K/mcL BMP 10/12/16 06:14 Sodium 136 Potassium 4.2 Chloride 105 Carbon Dioxide 19 BUN 18 Creatinine 1.21 Glucose 190 H Calcium 9.3 Liver Function 10/12/16 Range/Units 06:14 Total Bilirubin 2.3 H D (0.2-1.2) mg/dL AST 20 (5-34) Units/L ALT 20 (0-55) Units/L Alkaline Phosphatase 113 (38-126) Units/L Albumin 3.3 L (3.5-5.0) g/dL - ABG Interpretation ABG results: ABG ABG pH 7.47 pH Units (7.32-7.45) H 10/12/16 08:20 ABG pCO2 35 mmHg (35-45) 10/12/16 08:20 ABG pO2 79 mmHg (85-104) L 10/12/16 08:20 ABG O2 Saturation 96 % (95-98) 10/12/16 08:20 - Impressions Impressions Chest X-Ray 10/12/16 06:00 IMPRESSION: Worsening compared with the previous evaluation with onset of pulmonary edema, left lower lobe atelectatic changes and small bilateral effusions. CHF is likely. D/ / 10/12/2016 07:26:46 Susan Monteiro MD / raven Interpreting Provider: Susan Monteiro MD - VTE Documentation of Mechanical Device: Graduated compression elastic hosiery Consult Discharge Plan - Plan Referrals: Buck Stroud MD [Primary Care Provider] -
--- NOTE | 2016-10-12 14:53 | Internal Med Progress Note ---
Date of Encounter: 10/12/16 Time of Encounter: 14:50 - Assessment and plan (1) Anemia Current Visit: Yes Status: Acute Assessment and plan: Patient is a hemoglobin of 12.5 on . Patient admitted for syncope. Noted that upon admission the hemoglobin is 8.7 and this morning 7.9. Likely cause of syncopal episode is anemia: This is symptomatic anemia. Plan: Transfusion of 2 packed red blood cells. IV PPI 40 mg twice a day. GI consult appreciated: Possible EGD this evening. Depending on EGD findings, colonoscopy tomorrow. 10/12/2016. Noted that patient underwent EGD last evening. Noted that there was one bleeding polyp which was removed. Patient was transfused 2 units of PRBC. This morning patient's hemoglobin is more than 10. Patient was scheduled for colonoscopy today. Recommendation from gastroenterology is to do colonoscopy as outpatient. Plan: Close monitoring. Continue monitor hemoglobin and hematocrit. Qualifiers: Anemia type: unspecified type Qualified Code(s): D64.9 - Anemia, unspecified (2) Syncope and collapse Current Visit: Yes Status: Acute Assessment and plan: Syncope and collapse: Noted that patient is getting EEG. Also noted that patient has a order for echocardiogram/ultrasound carotid. In my opinion, this syncope and collapse is likely secondary to anemia. 10/12/2016. Patient denies any dizziness, lightheadedness or any syncopal episode. We will continue present treatment (3) Chest pain Current Visit: Yes Status: Acute Assessment and plan: Chest pain is likely produced by demand ischemia. Transfuse 2 packed red blood cells. 10/12/2016. Patient denies chest pain. Qualifiers: Chest pain type: unspecified Qualified Code(s): R07.9 - Chest pain, unspecified (4) Hypertension Current Visit: Yes Status: Chronic Assessment and plan: We will hold antihypertensives for now. Qualifiers: Hypertension type: essential hypertension Qualified Code(s): I10 - Essential (primary) hypertension (5) DVT prophylaxis Current Visit: Yes Status: Acute Assessment and plan: No pharmacological DVT prophylaxis. SCD. Medical decision making: This patient has moderate to severe risk of worsening in spite of being on appropriate therapy due to the underlying gastrointestinal issue. - Subjective Interval history: Patient seen and examined. Patient comfortably sitting the pain abated. His getting ready for his EEG. At this point patient denies dizziness, lightheadedness or palpitation. 10/12/2016 Seen and examined. Chart reviewed. When I examined this patient in the morning patient was on BiPAP. The repeat evaluation at around noon, patient is comfortably sitting in the chair along the bedside, intranasal oxygen 3 L/m Patient denies chest pain, dizziness, lightheadedness or abdominal pain. - Constitutional Vitals: Temp Pulse Resp BP Pulse Ox 98.6 F 91 18 130/75 93 10/12/16 11:38 10/12/16 12:34 10/12/16 12:34 10/12/16 12:34 10/12/16 13:13 General appearance: Present: cooperative, A&O X 3, pleasant, no acute distress, obese, answers questions appropriately - Head Head exam: Present: atraumatic, normocephalic - Eye Eye exam: Present: PERRL, conjuntiva pink, sclera anicteric Pupils: Present: PERRL - Neck Neck exam general surgery: Present: supple, trachea midline. Absent: lymphadenopathy - Respiratory Respiratory exam: Present: CTAB. Absent: accessory muscle use, rales, rhonchi, wheezes - Cardiovascular Cardiovascular exam: Present: RRR, +S1, +S2. Absent: diastolic murmur, gallop, rubs, systolic murmur - GI/Abdominal GI/Abdominal exam: Present: normal bowel sounds, soft, no peritoneal signs. Absent: distended, tenderness - Extremities Exam Extremities exam: Present: warm, radial pulses palpable and symetrical. Absent : calf tenderness, cyanotic, pedal edema - Neurological Exam Neurological exam: Present: CN II-XII intact, oriented X3, no focal deficits. Absent: pronater drift, facial droop, speech deficit - Skin Skin exam: Present: dry, intact Internal Medicine: Result - Labs CBC & Chem 7: 10/12/16 06:14 10/12/16 06:14 Labs: Short CBC 10/12/16 Range/Units 06:14 WBC 13.3 H (4.3-11.1) K/mcL Hgb 11.2 L D (12.9-16.9) g/dL Hct 35.9 L (37.5-50.1) % Plt Count 227 (140-400) K/mcL Neutrophils # 11.2 H (1.6-8.9) K/mcL BMP 10/12/16 06:14 Sodium 136 Potassium 4.2 Chloride 105 Carbon Dioxide 19 BUN 18 Creatinine 1.21 Glucose 190 H Calcium 9.3 Liver Function 10/12/16 Range/Units 06:14 Total Bilirubin 2.3 H D (0.2-1.2) mg/dL AST 20 (5-34) Units/L ALT 20 (0-55) Units/L Alkaline Phosphatase 113 (38-126) Units/L Albumin 3.3 L (3.5-5.0) g/dL - ABG Interpretation ABG results: ABG ABG pH 7.47 pH Units (7.32-7.45) H 10/12/16 08:20 ABG pCO2 35 mmHg (35-45) 10/12/16 08:20 ABG pO2 79 mmHg (85-104) L 10/12/16 08:20 ABG O2 Saturation 96 % (95-98) 10/12/16 08:20 - Impressions Impressions Chest X-Ray 10/12/16 06:00 IMPRESSION: Worsening compared with the previous evaluation with onset of pulmonary edema, left lower lobe atelectatic changes and small bilateral effusions. CHF is likely. D/ / 10/12/2016 07:26:46 Susan Monteiro MD / raven Interpreting Provider: Susan Monteiro MD - VTE Documentation of Mechanical Device: Graduated compression elastic hosiery Consult Discharge Plan - Plan Referrals: Buck Stroud MD [Primary Care Provider] -
--- NOTE | 2016-10-12 16:42 | Electrocardiograph Report ---
[place] [address] Test Date: 2016-10-12 Pat Name: Alejo Perez Department: 113 Room: 3B32 Gender: M Saw Operator: Cara : 1935 Requested By: Devora Carrillo Order Number: [id number] Reading MD: Nenita Dickson Measurements Intervals [place] Rate: 133 P: [place]: 0 QRS: -36 QRSD: 106 T: 126 QT: 311 QTc: 389 Interpretive Statements ATRIAL FIBRILLATION WITH RAPID VENTRICULAR RESPONSE MARKED LEFT AXIS DEVIATION POSSIBLE ANTERIOR MYOCARDIAL INFARCTION, PROBABLY OLD Electronically Signed On 10-12-2016 16:40:37 EDT by Nenita Dickson
--- NOTE | 2016-10-12 19:14 | Carotid Imaging Report ---
Carotid Duplex Patient Name:Alejo Perez Order Number:[id number] Procedure Date:10/11/2016 Date:1935ge:81 yrs Gender:Male Lt BP:144 / 72 mmHg Rt.BP:142 / 72 mmHgHeart Rate: Location:[facility] Room #: 3B32 Stationary Fireman:Jacquie Iglesias RVT Referring MD:Odin Jones CNP reconciliation accountant:Buck Stroud MD Reading MD:Desmond Brand MD Primary Indications:syncope Risk Factors Yes/No Hypertension Yes Diabetes Yes Family History Yes Impressions: Findings: Right proximal ICA has a severe, 60-79% stenosis. Recommendations: Risk Factor Modification, Medical Therapy, and Follow up exam 12 months. Findings Carotid Duplex: Right: There is nonstenotic plaque in the right distal common carotid artery. There is smooth homogeneous plaque. There is nonstenotic plaque in the right bifurcation. There is smooth homogeneous plaque. There is 60-79% stenosis in the right proximal internal carotid artery. There is heterogeneous calcified plaque. The right mid internal carotid artery has turbulent flow with plaque. There is nonstenotic plaque in the right eca. There is smooth homogeneous plaque. The right distal internal carotid artery was not assessed. Left: There is nonstenotic plaque in the left bifurcation. There is smooth homogeneous plaque. There is nonstenotic plaque in the left proximal internal carotid artery. There is smooth homogeneous plaque. There is nonstenotic plaque in the left mid internal carotid artery. There is smooth homogeneous plaque. The left vertebral artery was not assessed. Prior Study: No prior study available for comparison. Carotid Results Right PSV EDV Assessment Proximal CCA 61 13 Normal Mid CCA 65 18 Normal Distal CCA 60 14 Non Stenotic Plaque Bifurcation 53 12 Non Stenotic Plaque Proximal ICA 180 54 60-79% stenosis Mid ICA 153 37 Post stenotic flow ECA 93 6 Non Stenotic Plaque Vertebral Artery 66 17 Antegrade Flow Left PSV EDV Assessment Proximal CCA 94 14 Normal Mid CCA 85 18 Normal Distal CCA 88 19 Normal Bifurcation 72 19 Non Stenotic Plaque Proximal ICA 83 16 Non Stenotic Plaque Mid ICA 88 22 Non Stenotic Plaque Distal ICA 87 24 Normal ECA 118 8 Normal Ratio's Right ICA/CCA Ratio: 2.76 ICA/CCA Values: 180/65 Left ICA/CCA Ratio: 1.03 ICA/CCA Values: 88/85 Updated by Desmond Brand MD on 10/12/2016 7:09:06 PM electronically signed on 10/12/2016 7:09:23 PM with status of Approved electronically signed on 10/12/2016 7:09:29 PM with status of Final
[2016-10-13 04:01] LABS: Basophils % 0.3 %; Eosinophils # 0.1 K/mcL (0.0-0.6); Eosinophils % 0.7 %; Hematocrit 35.8 % (37.5-50.1); Hemoglobin 11.5 g/dL (12.9-16.9); Immature Granulocytes % 0.7 % (0-4); Lymphocytes # 1.4 K/mcL (0.6-4.6); Lymphocytes % 12.7 %; Mean Corpuscular HGB Conc 32.1 g/dL (31.6-35.5); Mean Corpuscular Hemoglobin 25.7 pg (28.0-33.3); Mean Corpuscular Volume 79.9 fL (83.0-100.0); Mean Platelet Volume 11.3 fL (9.4-12.4); Monocytes # 0.9 K/mcL (0.0-1.3); Monocytes % 8.5 %; Neutrophils # 8.2 K/mcL (1.6-8.9); Platelet Count 226 K/mcL (140-400); Red Blood Count 4.48 M/mcL (4.19-5.50); Red Cell Distribution Width 15.3 % (11.5-14.5); Segmented Neutrophils % 77.1 %
[2016-10-13 04:11] LABS: Alanine Aminotransferase 18 Units/L (0-55); Albumin 2.8 g/dL (3.5-5.0); Albumin/Globulin Ratio 0.8 (1.1-2.2); Alkaline Phosphatase 105 Units/L (38-126); Aspartate Amino Transferase 20 Units/L (5-34); BUN/Creatinine Ratio 18 (6-26); Bilirubin,Total 1.6 mg/dL (0.2-1.2); Blood Urea Nitrogen 23 mg/dL (8-26); Carbon Dioxide 26 mEq/L (19-29); Chloride 101 mEq/L (98-109); Globulin 3.4 g/dL (2.4-3.5); Glucose 154 mg/dL (70-99); Osmolality,Calculated 289 (280-300); Potassium 3.5 mEq/L (3.5-4.5); Sodium 136 mEq/L (136-145); Total Protein 6.2 g/dL (6.0-8.3); eGFR For African Americans > 60 (> 60); eGFR For Non-African Americans 54 (> 60)
[2016-10-13] MEDS ORDERED: *HR* Metoprolol 5 MG/5 ML VIAL IVP ONE ×4 (04:20→06:19)
[2016-10-13] MEDS: Pantoprazole 40 MG VIAL IVP SCH ×2 (04:29→17:48)
[2016-10-13] MEDS: *HR* Metoprolol 5 MG/5 ML VIAL IVP PRN (06:21)
[2016-10-13] MEDS: Budesonide/Formoterol 160/4.5 MDI IH SCH ×2 (07:48→20:30)
[2016-10-13] MEDS: Venlafaxine XR (24 HR) 150 MG CAP.ER.24H PO SCH (09:01)
[2016-10-13] MEDS: Multivit/Ca/Min/Fe/FA 1 TAB TABLET PO SCH (09:02)
[2016-10-13] MEDS: Insulin LISPRO 300 UNITS/3 ML VIAL SQ SCH ×3 (09:02→17:49)
--- NOTE | 2016-10-13 13:23 | Internal Med Progress Note ---
Date of Encounter: 10/13/16 Time of Encounter: 13:17 - Assessment and plan (1) Atrial fibrillation Current Visit: Yes Status: Acute Assessment and plan: New-onset of atrial fibrillation: Heart rate: Between 90 and 105. On metoprolol 50 mg twice a day. Echocardiogram: Ejection fraction 65%, mildly dilated LA. RVSP: 65 Recent blood loss: Hemoglobin: 05/2016 :12.5 to 09/2016 7.5 Presently on PPI Status post EGD: Fundal polyp removed. Not a candidate for anticoagulation in view of her recent GI bleed. Colonoscopy is still pending. All above discussed with the patient's son and [id number]. The verbalized understanding. The also understand the risk of possible stroke, renal infarct, gangrene of the lower extremity. Qualifiers: Atrial fibrillation type: paroxysmal Qualified Code(s): I48.0 - Paroxysmal atrial fibrillation (2) Anemia Current Visit: Yes Status: Acute Assessment and plan: Patient is a hemoglobin of 12.5 on . Patient admitted for syncope. Noted that upon admission the hemoglobin is 8.7 and this morning 7.9. Likely cause of syncopal episode is anemia: This is symptomatic anemia. Plan: Transfusion of 2 packed red blood cells. IV PPI 40 mg twice a day. GI consult appreciated: Possible EGD this evening. Depending on EGD findings, colonoscopy tomorrow. 10/12/2016. Noted that patient underwent EGD last evening. Noted that there was one bleeding polyp which was removed. Patient was transfused 2 units of PRBC. This morning patient's hemoglobin is more than 10. Patient was scheduled for colonoscopy today. Recommendation from gastroenterology is to do colonoscopy as outpatient. Plan: Close monitoring. Continue monitor hemoglobin and hematocrit. Qualifiers: Anemia type: unspecified type Qualified Code(s): D64.9 - Anemia, unspecified (3) Syncope and collapse Current Visit: Yes Status: Acute Assessment and plan: Syncope and collapse: Noted that patient is getting EEG. Also noted that patient has a order for echocardiogram/ultrasound carotid. In my opinion, this syncope and collapse is likely secondary to anemia. 10/12/2016. Patient denies any dizziness, lightheadedness or any syncopal episode. We will continue present treatment (4) Chest pain Current Visit: Yes Status: Acute Assessment and plan: Chest pain is likely produced by demand ischemia. Transfuse 2 packed red blood cells. 10/12/2016. Patient denies chest pain. Qualifiers: Chest pain type: unspecified Qualified Code(s): R07.9 - Chest pain, unspecified (5) Hypertension Current Visit: Yes Status: Chronic Assessment and plan: We will hold antihypertensives for now. Qualifiers: Hypertension type: essential hypertension Qualified Code(s): I10 - Essential (primary) hypertension (6) DVT prophylaxis Current Visit: Yes Status: Acute Assessment and plan: No pharmacological DVT prophylaxis. SCD. Medical decision making: This patient has moderate to severe risk of worsening in spite of being on appropriate therapy due to the underlying gastrointestinal issue. - Subjective Interval history: Patient seen and examined. Patient comfortably sitting the pain abated. His getting ready for his EEG. At this point patient denies dizziness, lightheadedness or palpitation. 10/12/2016 Seen and examined. Chart reviewed. When I examined this patient in the morning patient was on BiPAP. The repeat evaluation at around noon, patient is comfortably sitting in the chair along the bedside, intranasal oxygen 3 L/m Patient denies chest pain, dizziness, lightheadedness or abdominal pain. 10/13/2016 Patient seen and examined. Chart reviewed. Patient's son and lojwjcjz-gz-oyn at bedside. Patient still complain of occasional shortness of breath. Patient denies chest pain, dizziness, diarrhea or abdominal pain. - Constitutional Vitals: Temp Pulse Resp BP Pulse Ox 97.4 F L 60 16 101/65 91 10/13/16 10:58 10/13/16 10:58 10/13/16 10:58 10/13/16 10:58 10/13/16 10:58 General appearance: Present: cooperative, A&O X 3, pleasant, no acute distress, obese, answers questions appropriately - Head Head exam: Present: atraumatic, normocephalic - Eye Eye exam: Present: PERRL, conjuntiva pink, sclera anicteric Pupils: Present: PERRL - Neck Neck exam general surgery: Present: supple, trachea midline. Absent: lymphadenopathy - Respiratory Respiratory exam: Present: CTAB. Absent: accessory muscle use, rales, rhonchi, wheezes - Cardiovascular Cardiovascular exam: Present: RRR, +S1, +S2. Absent: diastolic murmur, gallop, rubs, systolic murmur - GI/Abdominal GI/Abdominal exam: Present: normal bowel sounds, soft, no peritoneal signs. Absent: distended, tenderness - Extremities Exam Extremities exam: Present: warm, radial pulses palpable and symetrical. Absent : calf tenderness, cyanotic, pedal edema - Neurological Exam Neurological exam: Present: CN II-XII intact, oriented X3, no focal deficits. Absent: pronater drift, facial droop, speech deficit - Skin Skin exam: Present: dry, intact Internal Medicine: Result - Labs CBC & Chem 7: 10/13/16 03:22 10/13/16 03:22 Labs: Short CBC 10/13/16 Range/Units 03:22 WBC 10.7 (4.3-11.1) K/mcL Hgb 11.5 L (12.9-16.9) g/dL Hct 35.8 L (37.5-50.1) % Plt Count 226 (140-400) K/mcL Neutrophils # 8.2 (1.6-8.9) K/mcL BMP 10/13/16 03:22 Sodium 136 Potassium 3.5 Chloride 101 Carbon Dioxide 26 BUN 23 Creatinine 1.27 H Glucose 154 H Calcium 9.0 Liver Function 10/13/16 Range/Units 03:22 Total Bilirubin 1.6 H (0.2-1.2) mg/dL AST 20 (5-34) Units/L ALT 18 (0-55) Units/L Alkaline Phosphatase 105 (38-126) Units/L Albumin 2.8 L (3.5-5.0) g/dL - ABG Interpretation ABG results: ABG ABG pH 7.47 pH Units (7.32-7.45) H 10/12/16 08:20 ABG pCO2 35 mmHg (35-45) 10/12/16 08:20 ABG pO2 79 mmHg (85-104) L 10/12/16 08:20 ABG O2 Saturation 96 % (95-98) 10/12/16 08:20 - Impressions Impressions Chest X-Ray 10/13/16 08:24 IMPRESSION: Pulmonary edema has resolved. Small bilateral pleural effusions. Mild posterior opacity at the lung bases on the lateral view. This likely reflects atelectasis. Radiographic follow-up is suggested. D/ / 10/13/2016 09:37:00 Rafa Min MD / [email or web address] Interpreting Provider: Rafa Min MD - VTE Documentation of Mechanical Device: Graduated compression elastic hosiery Consult Discharge Plan - Plan Referrals: Buck Struod MD [Primary Care Provider] - Real Sena MD [Partnered Physician] - (1 week f/u for out pt colon )
[2016-10-14] MEDS: Pantoprazole 40 MG VIAL IVP SCH (05:22)
[2016-10-14 07:22] VITALS: BP 108/64
[2016-10-14] MEDS: Budesonide/Formoterol 160/4.5 MDI IH SCH (08:02)
--- NOTE | 2016-10-14 09:27 | Discharge Summary ---
Date of Encounter: 10/14/16 Time of Encounter: 09:24 - Discharge Diagnosis (1) Atrial fibrillation Priority: Primary Status: Acute Qualifiers: Atrial fibrillation type: paroxysmal Qualified Code(s): I48.0 - Paroxysmal atrial fibrillation (2) Anemia Priority: Primary Status: Acute Qualifiers: Anemia type: unspecified type Qualified Code(s): D64.9 - Anemia, unspecified (3) Syncope and collapse Priority: Primary Status: Acute (4) Chest pain Priority: Secondary Status: Acute Qualifiers: Chest pain type: unspecified Qualified Code(s): R07.9 - Chest pain, unspecified (5) Hypertension Priority: Secondary Status: Chronic Qualifiers: Hypertension type: essential hypertension Qualified Code(s): I10 - Essential (primary) hypertension (6) DVT prophylaxis Priority: Secondary Status: Acute - Discharge Medications Prescriptions: Metoprolol [Lopressor] 75 mg PO BID #120 tablet Home Medications: Albuterol Sulfate [Ventolin Hfa] 2 puff IH Q4H PRN 10/10/16 [History] Aspirin Enteric Coated [Aspirin EC] 81 mg PO DAILY 10/10/16 [History] Atorvastatin [Lipitor] 40 mg PO HS 10/10/16 [History] Budesonide/Formoterol 160/4.5 [Symbicort 160/4.5] 2 puff IH BIDR 10/10/16 [ History] Febuxostat [Uloric] 40 mg PO DAILY 10/10/16 [History] Lisinopril [Zestril] 40 mg PO DAILY 10/10/16 [History] Sitagliptin Phos/Metformin HCl [Janumet 50-1,000 mg Tablet] 1 each PO BID [History] Tamsulosin [Flomax] 0.4 mg PO DAILY 10/10/16 [History] Venlafaxine XR (24 HR) [Effexor Xr] 150 mg PO DAILY 10/10/16 [History] Vit C/E/Zn/Coppr/Lutein/Zeaxan [Preservision Areds 2 Softgel] 1 cap PO BID 10/10 [History] Metoprolol [Lopressor] 75 mg PO BID #120 tablet 10/14/16 [Rx] Allergies/Adverse Reactions: Allergies pioglitazone Allergy (Verified 10/10/16 15:05) Swelling of Lip/Tongue/Throat canagliflozin [From Invokana] Adverse Reaction (Verified 10/10/16 15:05) Dizziness Procedures/tests Complete & Pending: Procedures Performed prior 72 hours Category Date Time Status ECG 12 lead ECG [ECG] Routine Y 10/12/16 02:19 Completed Date of admission: 10/10/16 23:56 Primary care physician: Buck Stroud MD Consults: 10/11/16 12:03 Consult to Interpret Exam [CONS] Routine Consulting Provider: Hay Trammell Consult to Interpret Exam: Interpret EEG Discharging clinician: [place] Anne - Patient Status Disposition: Home, Self-Care Condition: Good Functional capacity at discharge: independent ambulation Overall status at discharge: patient is progressing back to baseline - Discharge Instructions Follow Up With: Buck Stroud MD [Primary Care Provider] - Real Sena MD [Partnered Physician] - (1 week f/u for out pt colon ) Wu White DO [Partnered Physician] - - Diet and Activity Activity: increase activity as tolerated Diet: diabetic diet Interval History: Mr. Perez is a 81 year old male who is from the ED with chief complaint of syncope and collapse. Reports one-month history of periodic syncope and collapse as well as increasing dyspnea with exertion. Also reports episodic chest pain that radiates up his neck and down both arms prior to syncopal episodes. Latest episode of syncope was last night. He was unaware of how long he was unconscious or if he hit his head. Patient also reports pain in the back of his head with latest syncopal episode. Mr. Perez has a history of asthma, coronary artery disease, diabetes, hyperlipidemia, hypertension, SOB, and syncope. Also reports becoming diaphoretic during syncopal episodes. Mr. Perez states he has had reduced appetite within the past month as well. Patient's workup to include possibilities for cardiac related issues, orthostatic hypotension, hyperglycemia, and/or seizures. Concern regarding possible bleed related to 4 g hemoglobin drop from patient's baseline. Placed on continuous cardiac telemetry, O2 supplementation with titration if SPO2 less than 92%, and continuous monitoring of vitals. Ordered orthostatic vitals, echocardiogram, bilateral carotid Doppler, EEG, serial troponins 2, and a.m. cortisol levels have been placed. Patient's aspirin to be held as well as DVT prophylaxis due to possible bleeding. Gastroenterology consultation ordered. Patient also received Protonix 40 mg IVP twice a day. Patient and patient's vital signs to be monitored closely. Patient placed as bedrest with fall precautions and up with assist only. Hospital course: Patient presents with her current syncopal episodes. Differentials include G.I. bleeding, versus arrhythmias versus hypoglycemia versus orthostasis versus seizures...etc. he had a prior angiogram in 2013 showing noninclusive coronary disease. Will check echocardiogram, carotid Doppler, EEG, serial troponin, cortisol levels in a.m. he has acute kidney injury and hyperkalemia and he will be hydrated. I am concerned about G.I. bleeding. He has a 4 g hemoglobin drop compared to his baseline. He will be started on Protonix 40 mg IV twice daily. Occult blood testing. Gastroenterology consultation. Patient is full code. Patient underwent workup for syncope and collapse.His echocardiogram was within normal limits.Patient was seen by neurology. Neurology recommended medical management and optimization of medical issues which is the main reason for his syncope and collapse. The likely reason for syncope and collapse is anemia secondary to blood loss. His hemoglobin was 12.5 in May 2014 and upon admission the hemoglobin was 7.5. Patient was transfused to 2 units of packed red blood cells. Gastroenterology was on board. Patient underwent upper GI endoscopy. A polyp was resected. Gastroenterology planned colonoscopy as outpatient. The same night sudden worsening of shortness of breath. Noted that patient has a new onset of atrial fibrillation. Patient's heart rate was controlled with a beta carol. In view of the recent possible drop in hemoglobin is and is not a candidate for anticoagulation. [id number] score : 4 HASBLED score: 4 Discussed with the family at length. Patient's son at bedside. Along with me patient's nurse RN Shannon was present during discussion. I have discussed at length to patient's son, [id number] and patient himself regarding risk, benefit, advantage, disadvantage and alternative options regarding anticoagulation. In view of her recent drop in hemoglobin this patient is at risk for anticoagulation. Plan: Patient can go home today. We increased patient's metoprolol from 50 mg twice a day to 75 mg twice a day. Patient needed outpatient colonoscopy to complete the workup for blood loss. Patient needs to see primary care provider in one to 2 weeks. Patient needs to see duct cleaner as outpatient. All questions answered. At the time of discharge, patient or his family member does not have any questions, concerns, update or recommendations. - Time Spent with Patient Total time spent providing and/or coordinating discharge services: - Constitutional Vitals: Temp Pulse Resp BP Pulse Ox 98.0 F 91 16 108/64 95 10/14/16 07:17 10/14/16 07:17 10/14/16 08:02 10/14/16 07:17 10/14/16 08:03 General appearance: Present: cooperative, A&O X 3, pleasant, no acute distress, obese, answers questions appropriately - Head Head exam: Present: atraumatic, normocephalic - Eye Eye exam: Present: PERRL, conjuntiva pink, sclera anicteric Pupils: Present: PERRL - Neck Neck exam general surgery: Present: supple, trachea midline. Absent: lymphadenopathy - Respiratory Respiratory exam: Present: CTAB. Absent: accessory muscle use, rales, rhonchi, wheezes - Cardiovascular Cardiovascular exam: Present: RRR, +S1, +S2. Absent: diastolic murmur, gallop, rubs, systolic murmur - GI/Abdominal GI/Abdominal exam: Present: normal bowel sounds, soft, no peritoneal signs. Absent: distended, tenderness - Extremities Exam Extremities exam: Present: warm, radial pulses palpable and symetrical. Absent : calf tenderness, cyanotic, pedal edema - Neurological Exam Neurological exam: Present: CN II-XII intact, oriented X3, no focal deficits. Absent: pronater drift, facial droop, speech deficit - Skin Skin exam: Present: dry, intact - VTE Documentation of Mechanical Device: Graduated compression elastic hosiery
[2016-10-14] MEDS: Venlafaxine XR (24 HR) 150 MG CAP.ER.24H PO SCH (09:45)
[2016-10-14] MEDS: Multivit/Ca/Min/Fe/FA 1 TAB TABLET PO SCH (09:45)
[2016-10-14] MEDS: Insulin LISPRO 300 UNITS/3 ML VIAL SQ SCH (09:46)
--- NOTE | 2016-10-16 17:10 | Electrocardiograph Report ---
[address] [address] Test Date: 2016-10-13 Pat Name: Alejo Perez Department: 113 Room: 3B32 Gender: M Flag Signaler: : 1935 Requested By: Devora Carrillo Order Number: [id number] Reading MD: Navarro Dickson Measurements Intervals [place] Rate: 120 P: ID: 0 QRS: -69 QRSD: 109 T: 93 QT: 330 QTc: 401 Interpretive Statements ATRIAL FIBRILLATION WITH RAPID VENTRICULAR RESPONSE LEFT ANTERIOR FASCICULAR BLOCK MODERATE ST DEPRESSION Electronically Signed On 10-16-2016 17:08:49 EDT by Navarro Dickson
== END 2016-10-14 11:53 | disposition home or self-care (01) | DRG 683 ==
LOC: 3BNU 14:59 → EMEROO 14:59 → 3BNU 18:15
PROVIDERS: ADMIT Registered Nurse; ATTEND Registered Nurse

== ENCOUNTER 2017-10-16 13:54 | Inpatient (IN) ==
[2017-10-16 14:37] LABS: ABG Base Excess -1 mEq/L (-2 to 3); ABG HCO3 22 mEq/L (21-27); ABG Oxygen Saturation 97 % (95-98); ABG PCO2 30 mmHg (35-45); ABG PH 7.46 pH Units (7.32-7.45); ABG PO2 80 mmHg (85-104); ABG TCO2 22 mEq/L (20-26)
[2017-10-16 15:01] LABS: Basophils % 0.3 %; Hematocrit 38.3 % (37.5-50.1); Hemoglobin 12.7 g/dL (12.9-16.9); Immature Granulocytes % 0.8 % (0-4); Lymphocytes # 0.5 K/mcL (0.6-4.6); Lymphocytes % 3.4 %; Mean Corpuscular HGB Conc 33.2 g/dL (31.6-35.5); Mean Corpuscular Hemoglobin 28.7 pg (28.0-33.3); Mean Corpuscular Volume 86.7 fL (83.0-100.0); Mean Platelet Volume 10.3 fL (9.4-12.4); Monocytes # 0.6 K/mcL (0.0-1.3); Monocytes % 3.9 %; Neutrophils # 13.3 K/mcL (1.6-8.9); Platelet Count 339 K/mcL (140-400); Red Blood Count 4.42 M/mcL (4.19-5.50); Red Cell Distribution Width 15.1 % (11.5-14.5); Segmented Neutrophils % 91.6 %
--- NOTE | 2017-10-16 15:06 | Emergency Department Note ---
Disposition Clinical Impression: Pneumonia, Atrial fibrillation with rapid ventricular response, Delirium due to general medical condition, Hyponatremia, Syncope and collapse, Hyperkalemia, Hypoxia, Elevated LFTs CHF exacerbation Qualifiers: Heart failure type: diastolic Qualified Code(s): I50.33 - Acute on chronic diastolic (congestive) heart failure Altered mental status Qualifiers: Altered mental status type: delirium Qualified Code(s): R41.0 - Disorientation , unspecified Dementia Qualifiers: Dementia type: unspecified type Dementia behavioral disturbance: without behavioral disturbance Qualified Code(s): F03.90 - Unspecified dementia without behavioral disturbance Disposition: Admitted As Inpatient Condition: Fair Time of Disposition: 15:53 SOB HPI - General Chief Complaint: ED Altered Mental Status Stated Complaint: AMS Time Seen by Provider: 10/16/17 14:09 Source: family Mode of arrival: private vehicle Limitations: altered mental status Nursing Notes Reviewed: Yes Vital Signs Reviewed: Yes - History of Present Illness This is an 82 year-old amle with history of HTN, HLD, DM2, AF, and anemia, who presents with dyspnea, which is described as a chronic problem that worsened a few hours prior to arrival, associated with increased confusion, diaphoresis, two syncopal epsiodes without apparent secondary injury, and 2 episodes of nonbloody, nonbilious emesis. Family report that patient lives alone and is noncompliant with his medications. Patient is somewhat somnolent. He denies acute pain complaints but says he "hurts everywhere." Pt Subjective Complaint: shortness of breath Context: medication noncompliance Severity: severe Consistency/Duration: gradually worsening Known history of: COPD Associated symptoms: Reports: cough (chronic, unchanged). Denies: chest pain, fever Cough present: Yes Sputum production: No - Related Data Home Medications Medication Instructions Recorded Confirmed Albuterol Sulfate [Ventolin Hfa] 2 puff IH Q4H PRN 10/10/16 10/16/17 Aspirin Enteric Coated [Aspirin EC] 81 mg PO DAILY 10/10/16 10/16/17 Atorvastatin [Lipitor] 40 mg PO HS 10/10/16 10/16/17 Budesonide/Formoterol 160/4.5 2 puff IH BIDR 10/10/16 10/16/17 [Symbicort 160/4.5] Lisinopril [Zestril] 40 mg PO DAILY 10/10/16 10/16/17 Sitagliptin Phos/Metformin HCl 1 each PO BID 10/10/16 10/16/17 [Janumet 50-1,000 mg Tablet] Tamsulosin [Flomax] 0.4 mg PO DAILY 10/10/16 10/16/17 Venlafaxine XR (24 HR) [Effexor Xr] 150 mg PO DAILY 10/10/16 10/16/17 Vit C/E/Zn/Coppr/Lutein/Zeaxan 1 cap PO BID 10/10/16 10/16/17 [Preservision Areds 2 Softgel] Allopurinol [Zyloprim] 300 mg PO DAILY 10/16/17 10/16/17 Furosemide [Lasix] 20 mg PO DAILY 10/16/17 10/16/17 Glimepiride [Amaryl] 1 mg PO DAILY 10/16/17 10/16/17 Previous Rx's Medication Instructions Recorded Metoprolol [Lopressor] 75 mg PO BID #120 tablet 10/14/16 Allergies Allergy/AdvReac Type Severity Reaction Status Date / Time pioglitazone Allergy Swelling Verified 10/10/16 15:05 of Lip/Tongue/Throat canagliflozin [From Invokana] AdvReac Dizziness Verified 10/10/16 15:05 Limitations: ROS unobtainable due to patients medical condition Constitutional: Reports: weakness (generalized). Denies: fever Cardiovascular: Denies: chest pain Respiratory: Reports: dyspnea (acute on chronic) Gastrointestinal: Reports: vomiting (twice). Denies: abdominal pain, hematemesis Past Medical History - Past Medical History Medical history: Reports: asthma, coronary artery disease, diabetes, hyperlipidemia, hypertension, other Surgical history: Reports: no surgical history Psychiatric history: Reports: depression - Social History Smoking Status: Never smoker Smokeless Tobacco Status: No Alcohol use: Reports: none Drug use: Reports: none Physical Exam - General Limitations: altered mental status General appearance: lethargic - Head Head exam: atraumatic, normocephalic - Eye Eye exam: Present: normal appearance, PERRL, EOMI - ENT ENT exam: normal exam - Neck Neck exam: Present: normal inspection - Chest Chest inspection: Present: normal inspection Course - Reevaluation(s) Reevaluation #1: Patient showed initial response to the diltiazem, with pulse down to ~110, but pulse has climbed back to 150. BP remains stable. We will re-bolus and increase drip rate. Updated family on test results. They are in agreement with plans to admit. Time: 15:57 Reevaluation #2: Pulse rate down to 120s, which is somewhat improved since initial presentation. Will continue to titrate diltiazem. Time: 17:33 - Consultations Consultation #1: Discussed with Dr. Mota, and patient accepted for admission. Time: 17:48 Vital Signs Temperature 98.3 F 10/16/17 13:56 Pulse Rate 154 10/16/17 13:56 Respiratory Rate 18 10/16/17 13:56 Blood Pressure 144/113 10/16/17 13:56 O2 Sat by Pulse Oximetry 68 10/16/17 13:56 Temperature 99.9 F H 10/17/17 19:00 Pulse Rate 124 10/17/17 19:00 Respiratory Rate 18 10/17/17 19:00 Blood Pressure 145/121 10/17/17 19:00 O2 Sat by Pulse Oximetry 92 10/17/17 19:00 Oxygen Delivery Oxygen Delivery Non Rebreather Mask Shortness of Breath/Dyspnea - Differential Diagnosis Likely: acute exacerbation of chronic obstructive airways disease, congestive heart failure, pneumonia, arrhythmia - Lab Data Lab results reviewed: Yes I reviewed the patient's lab results. Result diagrams: 10/17/17 01:56 10/17/17 01:56 Lab Results 10/16/17 10/16/17 10/16/17 Range/Units 13:58 14:34 14:47 WBC 14.5 H (4.3-11.1) K/mcL RBC 4.42 (4.19-5.50) M/mcL Hgb 12.7 L (12.9-16.9) g/dL Hct 38.3 (37.5-50.1) % MCV 86.7 (83.0-100.0) fL MCH 28.7 (28.0-33.3) pg MCHC 33.2 (31.6-35.5) g/dL RDW 15.1 H (11.5-14.5) % Plt Count 339 (140-400) K/mcL MPV 10.3 (9.4-12.4) fL Immature Gran % 0.8 (0-4) % Seg Neutrophils % 91.6 % Lymphocytes % 3.4 % Monocytes % 3.9 % Eosinophils % 0.0 % Basophils % 0.3 % Neutrophils # 13.3 H (1.6-8.9) K/mcL Lymphocytes # 0.5 L (0.6-4.6) K/mcL Monocytes # 0.6 (0.0-1.3) K/mcL Eosinophils # 0.0 (0.0-0.6) K/mcL Basophils # 0.0 (0.0-0.2) K/mcL PT (9.4-12.1) Seconds INR APTT (26.0-36.0) Seconds ABG pH 7.46 H (7.32-7.45) pH Units ABG pCO2 30 L (35-45) mmHg ABG pO2 80 L (85-104) mmHg ABG HCO3 22 (21-27) mEq/L ABG Total CO2 22 (20-26) mEq/L ABG O2 Saturation 97 (95-98) % ABG Base Excess -1 (-2 to 3) mEq/L O2 Delivery Device NRB Inspired O2 100.0 (1-15=lpm xv82-134=%) Sodium (136-145) mEq/L Potassium (3.5-5.1) mEq/L Chloride (98-107) mEq/L Carbon Dioxide (23-29) mEq/L BUN (8-23) mg/dL Creatinine (0.70-1.30) mg/dL Est GFR ( Amer) (> 60) Est GFR (Non-Af Amer) (> 60) BUN/Creatinine Ratio (6-26) Glucose (70-105) mg/dL POC Glucose 285 H (70-99) mg/dL Calculated Osmolality (280-300) Lactic Acid (0.5-2.2) mmol/L Calcium (8.6-10.3) mg/dL Total Bilirubin (0.3-1.0) mg/dL Direct Bilirubin (0.0-0.2) mg/dL Indirect Bilirubin (0.0-1.2) mg/dL AST (13-39) Units/L ALT (7-52) Units/L Alkaline Phosphatase (34-104) Units/L Troponin I (< 0.04) ng/mL B-Natriuretic Peptide (Less than 100) pg/mL Serum Total Protein (6.4-8.9) g/dL Albumin (3.5-5.7) g/dL Globulin (2.4-3.5) g/dL Albumin/Globulin Ratio (1.1-2.2) Urine Color (Yellow) Urine Clarity (Clear) Urine pH (5.0-8.0) pH Units Ur Specific [place] (1.010-1.025) Urine Protein (Neg-Trace) mg/dL Urine Glucose (UA) (Normal) mg/dL Urine Ketones (Negative) mg/dL Urine Blood (Negative) Urine Nitrite (Negative) Urine Bilirubin (Negative) Urine Urobilinogen (Normal) mg/dL Ur Leukocyte Esterase (Negative) Urine Microscopic RBC (0-3) per hpf Urine Microscopic WBC (0-3) per hpf Ur Squamous Epith Cells (None-Few) per lpf Urine Bacteria (None-Few) per hpf Hyaline Casts (None-Few) per lpf Ur Culture Indicated? (NO) 10/16/17 10/16/17 10/16/17 Range/Units 14:47 14:47 14:47 WBC (4.3-11.1) K/mcL RBC (4.19-5.50) M/mcL Hgb (12.9-16.9) g/dL Hct (37.5-50.1) % MCV (83.0-100.0) fL MCH (28.0-33.3) pg MCHC (31.6-35.5) g/dL RDW (11.5-14.5) % Plt Count (140-400) K/mcL MPV (9.4-12.4) fL Immature Gran % (0-4) % Seg Neutrophils % % Lymphocytes % % Monocytes % % Eosinophils % % Basophils % % Neutrophils # (1.6-8.9) K/mcL Lymphocytes # (0.6-4.6) K/mcL Monocytes # (0.0-1.3) K/mcL Eosinophils # (0.0-0.6) K/mcL Basophils # (0.0-0.2) K/mcL PT 18.2 H (9.4-12.1) Seconds INR 1.7 APTT 32.6 (26.0-36.0) Seconds ABG pH (7.32-7.45) pH Units ABG pCO2 (35-45) mmHg ABG pO2 (85-104) mmHg ABG HCO3 (21-27) mEq/L ABG Total CO2 (20-26) mEq/L ABG O2 Saturation (95-98) % ABG Base Excess (-2 to 3) mEq/L O2 Delivery Device Inspired O2 (1-15=lpm fa08-812=%) Sodium 128 L (136-145) mEq/L Potassium 5.2 H (3.5-5.1) mEq/L Chloride 93 L (98-107) mEq/L Carbon Dioxide 21 L (23-29) mEq/L BUN 16 (8-23) mg/dL Creatinine 1.10 (0.70-1.30) mg/dL Est GFR ( Amer) > 60 (> 60) Est GFR (Non-Af Amer) > 60 (> 60) BUN/Creatinine Ratio 15 (6-26) Glucose 277 H (70-105) mg/dL POC Glucose (70-99) mg/dL Calculated Osmolality 277 L (280-300) Lactic Acid (0.5-2.2) mmol/L Calcium 9.4 (8.6-10.3) mg/dL Total Bilirubin 1.4 H (0.3-1.0) mg/dL Direct Bilirubin 0.7 H (0.0-0.2) mg/dL Indirect Bilirubin 0.7 (0.0-1.2) mg/dL AST 71 H (13-39) Units/L ALT 60 H (7-52) Units/L Alkaline Phosphatase 284 H (34-104) Units/L Troponin I 0.03 (< 0.04) ng/mL B-Natriuretic Peptide 729 H (Less than 100) pg/mL Serum Total Protein 7.4 (6.4-8.9) g/dL Albumin 3.3 L (3.5-5.7) g/dL Globulin 4.1 H (2.4-3.5) g/dL Albumin/Globulin Ratio 0.8 L (1.1-2.2) Urine Color (Yellow) Urine Clarity (Clear) Urine pH (5.0-8.0) pH Units Ur Specific [place] (1.010-1.025) Urine Protein (Neg-Trace) mg/dL Urine Glucose (UA) (Normal) mg/dL Urine Ketones (Negative) mg/dL Urine Blood (Negative) Urine Nitrite (Negative) Urine Bilirubin (Negative) Urine Urobilinogen (Normal) mg/dL Ur Leukocyte Esterase (Negative) Urine Microscopic RBC (0-3) per hpf Urine Microscopic WBC (0-3) per hpf Ur Squamous Epith Cells (None-Few) per lpf Urine Bacteria (None-Few) per hpf Hyaline Casts (None-Few) per lpf Ur Culture Indicated? (NO) 10/16/17 10/16/17 Range/Units 17:46 18:53 WBC (4.3-11.1) K/mcL RBC (4.19-5.50) M/mcL Hgb (12.9-16.9) g/dL Hct (37.5-50.1) % MCV (83.0-100.0) fL MCH (28.0-33.3) pg MCHC (31.6-35.5) g/dL RDW (11.5-14.5) % Plt Count (140-400) K/mcL MPV (9.4-12.4) fL Immature Gran % (0-4) % Seg Neutrophils % % Lymphocytes % % Monocytes % % Eosinophils % % Basophils % % Neutrophils # (1.6-8.9) K/mcL Lymphocytes # (0.6-4.6) K/mcL Monocytes # (0.0-1.3) K/mcL Eosinophils # (0.0-0.6) K/mcL Basophils # (0.0-0.2) K/mcL PT (9.4-12.1) Seconds INR APTT (26.0-36.0) Seconds ABG pH (7.32-7.45) pH Units ABG pCO2 (35-45) mmHg ABG pO2 (85-104) mmHg ABG HCO3 (21-27) mEq/L ABG Total CO2 (20-26) mEq/L ABG O2 Saturation (95-98) % ABG Base Excess (-2 to 3) mEq/L O2 Delivery Device Inspired O2 (1-15=lpm pr37-194=%) Sodium (136-145) mEq/L Potassium (3.5-5.1) mEq/L Chloride (98-107) mEq/L Carbon Dioxide (23-29) mEq/L BUN (8-23) mg/dL Creatinine (0.70-1.30) mg/dL Est GFR ( Amer) (> 60) Est GFR (Non-Af Amer) (> 60) BUN/Creatinine Ratio (6-26) Glucose (70-105) mg/dL POC Glucose (70-99) mg/dL Calculated Osmolality (280-300) Lactic Acid 3.0 H (0.5-2.2) mmol/L Calcium (8.6-10.3) mg/dL Total Bilirubin (0.3-1.0) mg/dL Direct Bilirubin (0.0-0.2) mg/dL Indirect Bilirubin (0.0-1.2) mg/dL AST (13-39) Units/L ALT (7-52) Units/L Alkaline Phosphatase (34-104) Units/L Troponin I (< 0.04) ng/mL B-Natriuretic Peptide (Less than 100) pg/mL Serum Total Protein (6.4-8.9) g/dL Albumin (3.5-5.7) g/dL Globulin (2.4-3.5) g/dL Albumin/Globulin Ratio (1.1-2.2) Urine Color Yellow (Yellow) Urine Clarity Cloudy A (Clear) Urine pH 6.0 (5.0-8.0) pH Units Ur Specific [place] 1.019 (1.010-1.025) Urine Protein 30 H (Neg-Trace) mg/dL Urine Glucose (UA) Normal (Normal) mg/dL Urine Ketones Negative (Negative) mg/dL Urine Blood Negative (Negative) Urine Nitrite Negative (Negative) Urine Bilirubin Negative (Negative) Urine Urobilinogen Normal (Normal) mg/dL Ur Leukocyte Esterase Negative (Negative) Urine Microscopic RBC 0-3 (0-3) per hpf Urine Microscopic WBC 0-3 (0-3) per hpf Ur Squamous Epith Cells Moderate H (None-Few) per lpf Urine Bacteria Few (None-Few) per hpf Hyaline Casts Few (None-Few) per lpf Ur Culture Indicated? NO (NO) - Radiology Data Radiology results reviewed: Yes I reviewed the patient's radiology results. XR/XR chest 1V portable IMPRESSION: Interval development of pulmonary edema. There is asymmetric more focal consolidation in the left upper lung which may be related to asymmetric edema versus superimposed pneumonia. CT/CT head/brain wo con IMPRESSION: No acute intracranial abnormality. CT/CT angio chest IMPRESSION: 1. No pulmonary embolism. 2. Interval development of consolidative changes bilateral lungs, vascular engorgement and bilateral pleural effusion most in keeping with congestive heart failure though diffuse infectious process or ARDS could have the same appearance 3. Mild pulmonary artery enlargement can be associated with pulmonary artery hypertension. 4. Cardiomegaly. 5. Calcific atherosclerosis aorta and coronary arteries. - EKG Data EKG attestation: Yes I reviewed and interpreted this EKG. EKG shows normal: Denies: axis Rate: Reports: tachycardia Rhythm: Reports: A.Fib [place]/QRS: Reports: left axis deviation T wave inversions noted in: Reports: aVL When compared to previous EKG there are: previous EKG unavailable (on request) Interpretation: Reports: nonspecific ST-T wave changes Critical Care Time Critical Care Time: Yes Total Critical Care Time: 40 Attestation: The high probability of a clinically significant, sudden or life threatening deterioration of the [cardiovascular] system(s) required my full and direct attention, intervention and personal management. The aggregate critical care time was [40] minutes. This time is in addition to time spent performing reported procedures but includes the following: [x] Data Review and interpretation [x] Patient assessment and monitoring of vital signs [x] Documentation [x] Medication orders and management
[2017-10-16 15:12] LABS: INR 1.7; Prothrombin Time 18.2 Seconds (9.4-12.1)
[2017-10-16 15:14] LABS: Activated Partial Thrombo Time 32.6 Seconds (26.0-36.0)
[2017-10-16 15:27] LABS: Alanine Aminotransferase 60 Units/L (7-52); Albumin 3.3 g/dL (3.5-5.7); Albumin/Globulin Ratio 0.8 (1.1-2.2); Alkaline Phosphatase 284 Units/L (34-104); Aspartate Amino Transferase 71 Units/L (13-39); BUN/Creatinine Ratio 15 (6-26); Bilirubin,Direct 0.7 mg/dL (0.0-0.2); Bilirubin,Indirect 0.7 mg/dL (0.0-1.2); Bilirubin,Total 1.4 mg/dL (0.3-1.0); Blood Urea Nitrogen 16 mg/dL (8-23); Calcium 9.4 mg/dL (8.6-10.3); Carbon Dioxide 21 mEq/L (23-29); Chloride 93 mEq/L (98-107); Globulin 4.1 g/dL (2.4-3.5); Glucose 277 mg/dL (70-105); Osmolality,Calculated 277 (280-300); Potassium 5.2 mEq/L (3.5-5.1); Sodium 128 mEq/L (136-145); Total Protein 7.4 g/dL (6.4-8.9); eGFR For African Americans > 60 (> 60); eGFR For Non-African Americans > 60 (> 60)
[2017-10-16] MEDS ORDERED: Levofloxacin 750 MG/150 ML 750 MG/150 ML BAG IVPB ONE (15:48)
[2017-10-16 15:52] LABS: Troponin I 0.03 ng/mL (< 0.04)
[2017-10-16] MEDS ORDERED: Furosemide 40 MG/4 ML VIAL IVP ONE (15:52)
[2017-10-16] MEDS ORDERED: Isovue-370 500 ML INFUS..BTL IV ONE (18:38)
[2017-10-16] MEDS ORDERED: Nitroglycerin 0.4 MG TAB.SUBL SL PRN (19:01)
[2017-10-16] MEDS ORDERED: OXYCODONE Oral CONC 10 MG/0.5 ML ORAL.SYG SL PRN ×2 (19:05)
[2017-10-16] MEDS ORDERED: Ondansetron 4 MG/2 ML VIAL IVP PRN (19:05)
[2017-10-16] MEDS ORDERED: *HR* Dextrose 50 % in Water (Syg) 50 ML SYRINGE IVP PRN (19:05)
[2017-10-16] MEDS ORDERED: Naloxone 0.4 MG/ML INJ IVP PRN (19:05)
[2017-10-16] MEDS ORDERED: D5% in Water 1,000 ML IVC PRN (19:05)
[2017-10-16] MEDS ORDERED: Dextrose Gel 15 GM/37.5 ML TUBE PO PRN ×2 (19:05)
[2017-10-16 19:14] LABS: Bilirubin,Urine Negative (Negative); Blood,Urine Negative (Negative); Clarity,Urine Cloudy (Clear); Color,Urine Yellow (Yellow); Glucose,Urine (UA) Normal (Normal); Ketones,Urine Negative (Negative); Leukocyte Esterase,Urine Negative (Negative); Nitrite,Urine Negative (Negative); Protein,Urine 30 mg/dL (Neg-Trace); Specific Gravity,Urine 1.019 (1.010-1.025); Urobilinogen,Urine Normal (Normal)
[2017-10-16 19:19] LABS: Hyaline Casts,Urine Few per lpf (None-Few); RBC,Urine 0-3 per hpf (0-3); Squamous Epithelial Cell,Urine Moderate per lpf (None-Few); WBC,Urine 0-3 per hpf (0-3)
[2017-10-16] MEDS ORDERED: *HR* Metoprolol 5 MG/5 ML VIAL IVP PRN (19:21)
--- NOTE | 2017-10-16 19:24 | Internal Med History&Physical ---
Date of Encounter: 10/16/17 Time of Encounter: 19:22 Internal Medicine - H&P: HPI Chief complaint: Shortness of breath and altered mental status Admitted From: Emergency Dept History of present illness: Mr. Perez is a 82 year old male with a past echo history of diabetes type 2 not insulin-dependent, COPD not oxygen dependent, depression, CAD, hyponatremia , came to emergency room complaining of severe shortness of breath, his family members mention that he has been confused for the past 2 days and getting worse , he's been sweating profusely and having non quantified fevers at home. The patient is in respiratory distress, his heart rate was in the 160s and was started on a Cardizem drip white blood cell count was 14.5 sodium has decreased to 128 AST 70ALT 60. Chest x-ray showed pulmonary edema in the left upper lobe opacity compatible with pneumonia. Hemoglobin is 12.7 increased from before, potassium is 5.2 BNP 729 pH 7.46 PCO2 [address] scan of the head is unremarkable. Lactic acid is 3, INR is 1.7. The patient is confused at times but currently he is able to answer simple questions, sweating profusely. Was given Levaquin and Lasix at the emergency room. I requested the ER physician to do a CT angiogram of the chest Past Med Surg Social Fam HX - Past Medical History Medical history: asthma, coronary artery disease, diabetes (Not insulin- dependent), hyperlipidemia, hypertension, other (Hyponatremia, chronic anemia, atrial fibrillation not on anticoagulation, BPH, depression, gout, CAD, diastolic CHF with an ejection fraction of 50-55% with moderate aortic regurgitation and tricuspid regurgitation, right carotid stenosis and prior history of possibly GI bleed the reason why he is not on anticoagulation for A. fib) Additional medical history: BPH Psychiatric history: depression - Past Surgical History Surgical History: no surgical history - Social History Smoking Status: Never smoker Smokeless Tobacco Status: No Alcohol use: none Drug use: none - Additional Family History Additional family history: Father with myocardial infarction Internal Medicine - H&P: Meds Albuterol Sulfate [Ventolin Hfa] 2 puff IH Q4H PRN 10/10/16 [History] Aspirin Enteric Coated [Aspirin EC] 81 mg PO DAILY 10/10/16 [History] Atorvastatin [Lipitor] 40 mg PO HS 10/10/16 [History] Budesonide/Formoterol 160/4.5 [Symbicort 160/4.5] 2 puff IH BIDR 10/10/16 [ History] Lisinopril [Zestril] 40 mg PO DAILY 10/10/16 [History] Sitagliptin Phos/Metformin HCl [Janumet 50-1,000 mg Tablet] 1 each PO BID [History] Tamsulosin [Flomax] 0.4 mg PO DAILY 10/10/16 [History] Venlafaxine XR (24 HR) [Effexor Xr] 150 mg PO DAILY 10/10/16 [History] Vit C/E/Zn/Coppr/Lutein/Zeaxan [Preservision Areds 2 Softgel] 1 cap PO BID 10/10 [History] Metoprolol [Lopressor] 75 mg PO BID #120 tablet 10/14/16 [Rx] Allopurinol [Zyloprim] 300 mg PO DAILY 10/16/17 [History] Furosemide [Lasix] 20 mg PO DAILY 10/16/17 [History] Glimepiride [Amaryl] 1 mg PO DAILY 10/16/17 [History] 3 Allergy/AdvReac Type Severity Reaction Status Date / Time pioglitazone Allergy Swelling Verified 10/10/16 15:05 of Lip/Tongue/Throat canagliflozin [From Invokana] AdvReac Dizziness Verified 10/10/16 15:05 All Systems PM: A 10-system review of systems was performed and is negative for pertinent findings except as documented above in the HPI. Review of systems: Short of breath, extremely weak, confused, other systems out of the 10 reviewed were negative - Constitutional Vitals: Temp Pulse Resp BP Pulse Ox 98.3 F 123 20 99/78 98 10/16/17 13:56 10/16/17 18:23 10/16/17 18:23 10/16/17 18:23 10/16/17 18:23 General appearance: Present: A&O X 3 (Confused at times) Exam: Sweating profusely - Head Head exam: Present: atraumatic, normocephalic - Eye Eye exam: Present: PERRL, conjuntiva pink, sclera anicteric Pupils: Present: PERRL - Neck Neck exam general surgery: Present: supple, trachea midline. Absent: lymphadenopathy - Respiratory Respiratory exam: Present: CTAB, rales. Absent: accessory muscle use, rhonchi, wheezes Additional comments: Diffuse crackles - Cardiovascular Cardiovascular exam: Present: irregular rhythm, RRR, +S1, +S2, tachycardia. Absent: diastolic murmur, gallop, rubs, systolic murmur - GI/Abdominal GI/Abdominal exam: Present: normal bowel sounds, soft, no peritoneal signs. Absent: distended, tenderness - Extremities Exam Extremities exam: Present: warm, radial pulses palpable and symmetrical. Absent : calf tenderness, cyanotic, pedal edema - Neurological Exam Neurological exam: Present: CN II-XII intact, oriented X3, no focal deficits. Absent: pronater drift, facial droop, speech deficit Additional comments: Very diaphoretic - Skin Skin exam: Present: dry, intact Internal Med - H&P Results - Labs CBC & Chem 7: 10/16/17 14:47 10/16/17 14:47 Labs: Urine 10/16/17 Range/Units 18:53 Urine Color Yellow (Yellow) Urine Clarity Cloudy A (Clear) Urine pH 6.0 (5.0-8.0) pH Units Ur Specific [place] 1.019 (1.010-1.025) Urine Protein 30 H (Neg-Trace) mg/dL Urine Glucose (UA) Normal (Normal) mg/dL - Assessment and plan (1) Sepsis Current Visit: Yes Status: Acute Assessment and plan: Acute metabolic encephalopathy secondary to hypoxic respiratory failure due to sepsis from a community-acquired pneumonia unclear etiology combined with acute pulmonary edema, lactic acidosis Continue Lasix IV, CT angio of the chest ordered Limited echocardiogram Continue Levaquin and add cefepime, cultures, check legionella and Streptococcus pneumoniae in urine Recheck lactic acid Send to 2 N., consider ICU admission Omeprazole for GI prophylaxis and Lovenox for DVT prophylaxis, the patient will be admitted as inpatient, expected to stay more than 2 midnights. Full code. Time spent on this admission 40 minutes Qualifiers: Sepsis type: sepsis due to unspecified organism Qualified Code(s): A41.9 - Sepsis, unspecified organism (2) Atrial fibrillation with rapid ventricular response Current Visit: Yes Status: Acute Assessment and plan: A. fib with rapid ventricular response secondary to sepsis and hypoxia Cardizem drip, consider cardiology evaluation The patient takes metoprolol at home, may use Lopressor IV if blood pressure allows (3) CHF exacerbation Current Visit: Yes Status: Acute Qualifiers: Heart failure type: diastolic Qualified Code(s): I50.33 - Acute on chronic diastolic (congestive) heart failure (4) Hyperkalemia Current Visit: Yes Status: Acute (5) Hyponatremia Current Visit: Yes Status: Acute (6) Pneumonia Current Visit: Yes Status: Acute Qualifiers: Pneumonia type: due to unspecified organism Laterality: left Lung location: upper lobe of lung Qualified Code(s): J18.1 - Lobar pneumonia, unspecified organism (7) Diabetes mellitus Current Visit: No Status: Chronic Assessment and plan: ISS Qualifiers: Diabetes mellitus type: type 2 Diabetes mellitus fdc insulin use: without fdc use Diabetes mellitus complication status: with unspecified complications Qualified Code(s): E11.8 - Type 2 diabetes mellitus with unspecified complications - Time Spent With Patient Total time spent is greater than 50% in coordination of care (as documented) at patient's floor/unit and/or counseling patient:
[2017-10-16 19:33] LABS: Bacteria,Urine Few per hpf (None-Few)
--- NOTE | 2017-10-16 21:05 | Sepsis Event Note ---
Sepsis Event Note - Evaluation Sepsis Screen: No Definite Risk Current Stage of Sepsis: severe sepsis Possible Source of Sepsis: pulmonary - Focused Exam Date of Encounter: 10/16/17 Time of Encounter: 21:04 Respiratory Exam: Present: wheezes, rales, rhonchi Cardiovascular Exam: Present: irregulary irregular, tachycardia Capillary Refill: < 2 seconds Peripheral Pulse Strength: 3+ normal Peripheral Pulse Location: Pedal Skin Exam: diaphoretic - Bedside Monitoring Date bedside monitoring was performed: 10/16/17 Time bedside monitoring was performed: 21:04 CVP Measures: 8-12 ScvO2 measures: greater than or equal to 70% Bedside Ultrasound Performed: No Passive Leg raise/fluid bolus: negative
[2017-10-16] MEDS: Ipratropium/Albuterol Neb 3 ML IH SCH ×2 (21:44)
[2017-10-16] MEDS: *HR* Enoxaparin 40 MG/0.4 ML SYRINGE SQ SCH (23:19)
[2017-10-16] MEDS: Furosemide 20 MG/2 ML VIAL IVP SCH (23:28)
--- NOTE | 2017-10-17 00:56 | Sepsis Event Note ---
Sepsis Reassessment Note - Evaluation Sepsis Screen: No Definite Risk Current Stage of Sepsis: sepsis Possible Source of Sepsis: pulmonary - Focused Exam Date of Encounter: 10/17/17 Time of Encounter: 00:55 Vital Signs: Vital Signs Temp Pulse Resp BP Pulse Ox 10/16/17 21:51 16 100 10/16/17 20:48 97.5 F L 81 16 93/62 100 Respiratory Exam: Present: crackles (present diffusely) Cardiovascular Exam: Present: irregulary irregular Capillary Refill: < 2 seconds Peripheral Pulse Strength: 3+ normal Peripheral Pulse Location: Radial Skin Exam: unremarkable - Reassessment Comments Comments: patient doing better, currently sleeping. vitals improved. HR in low 90s, SBP high 90s. lactic acid still slightly elevated but improved compared to prior.
[2017-10-17 02:07] LABS: Hematocrit 32.4 % (37.5-50.1); Mean Corpuscular HGB Conc 33.6 g/dL (31.6-35.5); Mean Corpuscular Hemoglobin 28.4 pg (28.0-33.3); Mean Corpuscular Volume 84.4 fL (83.0-100.0); Mean Platelet Volume 10.5 fL (9.4-12.4); Platelet Count 264 K/mcL (140-400); Red Blood Count 3.84 M/mcL (4.19-5.50); Red Cell Distribution Width 15.2 % (11.5-14.5)
[2017-10-17 02:08] LABS: Hemoglobin 10.9 g/dL (12.9-16.9)
[2017-10-17 02:28] LABS: Alanine Aminotransferase 47 Units/L (7-52); Albumin 2.9 g/dL (3.5-5.7); Albumin/Globulin Ratio 0.9 (1.1-2.2); Alkaline Phosphatase 221 Units/L (34-104); Aspartate Amino Transferase 46 Units/L (13-39); BUN/Creatinine Ratio 21 (6-26); Bilirubin,Total 1.1 mg/dL (0.3-1.0); Blood Urea Nitrogen 22 mg/dL (8-23); Calcium 9.2 mg/dL (8.6-10.3); Carbon Dioxide 22 mEq/L (23-29); Chloride 97 mEq/L (98-107); Chol/HDL Ratio 5.8 (0-4.9); Cholesterol 156 mg/dL (< 200); Globulin 3.4 g/dL (2.4-3.5); Glucose 203 mg/dL (70-105); HDL Cholesterol 27 mg/dL (40-59); LDL Cholesterol,Calculated 111 mg/dL (0-99); Magnesium 1.8 mg/dL (1.6-2.6); Osmolality,Calculated 281 (280-300); Phosphorous 4.2 mg/dL (2.7-4.5); Sodium 131 mEq/L (136-145); Total Protein 6.3 g/dL (6.4-8.9); Triglycerides 92 mg/dL (< 150); eGFR For African Americans > 60 (> 60); eGFR For Non-African Americans > 60 (> 60)
[2017-10-17] MEDS: Insulin LISPRO 300 UNITS/3 ML VIAL SQ SCH ×5 (03:32→16:42)
[2017-10-17] MEDS: Ipratropium/Albuterol Neb 3 ML IH SCH ×4 (03:45→21:21)
[2017-10-17] MEDS: Cefepime HCl 1,000 MG in Water for inj. (sterile) 20 ML 10 ML IVP SCH ×2 (05:43→16:40)
--- NOTE | 2017-10-17 07:15 | Electrocardiograph Report ---
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
--- NOTE | 2017-10-17 08:55 | Internal Med Progress Note ---
<Darrell Ye - Last Filed: 10/17/17 14:45> Date of Encounter: 10/17/17 Time of Encounter: 08:53 - Assessment and plan (1) Sepsis Current Visit: Yes Status: Resolved Assessment and plan: Acute metabolic encephalopathy secondary to hypoxic respiratory failure due to sepsis from a community-acquired pneumonia unclear etiology combined with acute pulmonary edema, lactic acidosis CT angio revealed no PE, conslidative changes bilaterally with vascular engorgement and bilateral pleural effusion. Urine antigens negative. Lactic acid 2.0 -Echo ordered -Blood cultures pending. -Continue with Levaquin and Cefepime d2. -Continue with lasix bid. Qualifiers: Sepsis type: sepsis due to unspecified organism Qualified Code(s): A41.9 - Sepsis, unspecified organism (2) Atrial fibrillation with rapid ventricular response Current Visit: Yes Status: Acute Assessment and plan: A. fib with rapid ventricular response secondary to sepsis and hypoxia Rate this morning between 98-110 -Restarted metoprolol home dosing. -Continue with cardizem drip. (3) Pneumonia Current Visit: Yes Status: Acute Assessment and plan: CXR revealed pulmonary edema and focal consolidation in Left upper airways. CTA revealed consolidateive changes bilateraly and bilateral pleural effusion and vascular engorgement. -Continue with Levaquin and Cefepime d2. -Continue with lasix bid. Qualifiers: Pneumonia type: due to unspecified organism Laterality: left Lung location: upper lobe of lung Qualified Code(s): J18.1 - Lobar pneumonia, unspecified organism (4) Hyperkalemia Current Visit: Yes Status: Resolved Assessment and plan: Resolved. Initially 5.2, currently 4.0 Conitue monitoring labs. (5) Hyponatremia Current Visit: Yes Status: Chronic Assessment and plan: Improving. Na 131 this morning. 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 No prior history of Qualifiers: Heart failure type: diastolic Qualified Code(s): I50.33 - Acute on chronic diastolic (congestive) heart failure (8) Early satiety Current Visit: Yes Status: Acute Assessment and plan: Reports eating very little and feeling full. Has had about 30Lb weight loss over past months, likely due to poor appetite. -hemoccult ordered -Nutrition consult ordered. -Consider Endoscopy if suspicion for malignancy. Due to history of diabetes, will trial reglan at this time. If still no improvement to contact GI and determine whether needing endoscopy. (9) Weight loss Current Visit: Yes Status: Acute - Time Spent With Patient Total time spent is greater than 50% in coordination of care (as documented) at patient's floor/unit and/or counseling patient: - Subjective Interval history: Mr. Perez reports doing well this morning. No significant shortness of breath. Does mention that he forgot what initially brought him the the hospital, but he is currently AxO 3. Denies fevers, chills, sweats, nausea, vomiting, chest pain, abdominal pain, changes in bowels or bladder, dysuira, weakness, or loss of sensation. - Constitutional Vitals: Temp Pulse Resp BP Pulse Ox 97.7 F 98 16 105/62 98 10/17/17 06:31 10/17/17 06:31 10/17/17 06:31 10/17/17 06:31 10/17/17 06:31 General appearance: Present: A&O X 3 (Confused at times) - Head Head exam: Present: atraumatic, normal inspection, normocephalic - Eye Eye exam: Present: EOMI, normal appearance - ENT ENT exam: Present: mucous membranes dry - Neck Neck exam general surgery: Present: full ROM, normal inspection, supple, trachea midline - Respiratory Respiratory exam: Present: CTAB. Absent: rales, rhonchi, wheezes - Cardiovascular Cardiovascular exam: Present: irregular rhythm, +S1, +S2, tachycardia - GI/Abdominal GI/Abdominal exam: Present: normal bowel sounds, soft. Absent: distended, tenderness - Extremities Exam Extremities exam: Present: normal inspection, warm, radial pulses palpable and symmetrical. Absent: pedal edema - Skin Skin exam: Present: dry, intact, normal color, warm. Absent: rash Internal Medicine: Result - Labs CBC & Chem 7: 10/17/17 01:56 10/17/17 01:56 Labs: Short CBC 05/31/18 Range/Units 01:56 WBC 9.8 (4.3-11.1) K/mcL Hgb 10.9 L D (12.9-16.9) g/dL Hct 32.4 L (37.5-50.1) % Plt Count 264 (140-400) K/mcL BMP 10/17/17 01:56 Sodium 131 L Potassium 4.0 Chloride 97 L Carbon Dioxide 22 L BUN 22 Creatinine 1.05 Glucose 203 H Calcium 9.2 Liver Function 10/17/17 Range/Units 01:56 Total Bilirubin 1.1 H (0.3-1.0) mg/dL AST 46 H (13-39) Units/L ALT 47 (7-52) Units/L Alkaline Phosphatase 221 H (34-104) Units/L Albumin 2.9 L (3.5-5.7) g/dL - ABG Interpretation ABG results: ABG ABG pH 7.46 pH Units (7.32-7.45) H 10/16/17 14:34 ABG pCO2 30 mmHg (35-45) L 10/16/17 14:34 ABG pO2 80 mmHg (85-104) L 10/16/17 14:34 ABG O2 Saturation 97 % (95-98) 10/16/17 14:34 PT/INR, D-dimer PT 18.2 Seconds (9.4-12.1) H 10/16/17 14:47 Consult Discharge Plan - Plan Referrals: Buck Stroud MD [Primary Care Provider] - <Anastacio Valentino - Last Filed: 10/17/17 15:51> Date of Encounter: 10/17/17 - Assessment and plan (1) Acute respiratory failure with hypoxia Current Visit: Yes Status: Acute (2) Hyperkalemia Current Visit: Yes Status: Resolved (3) Diabetes mellitus Current Visit: No Status: Chronic Qualifiers: Diabetes mellitus type: type 2 Diabetes mellitus shelter insulin use: without shelter use Diabetes mellitus complication status: with unspecified complications Qualified Code(s): E11.8 - Type 2 diabetes mellitus with unspecified complications (4) Pneumonia Current Visit: Yes Status: Suspected Qualifiers: Pneumonia type: due to Pneumococcus Laterality: left Lung location: upper lobe of lung Qualified Code(s): J13 - Pneumonia due to Streptococcus pneumoniae (5) CHF exacerbation Current Visit: Yes Status: Acute Qualifiers: Heart failure type: diastolic Qualified Code(s): I50.33 - Acute on chronic diastolic (congestive) heart failure (6) Atrial fibrillation with rapid ventricular response Current Visit: Yes Status: Acute (7) Hyponatremia Current Visit: Yes Status: Chronic (8) Sepsis Current Visit: Yes Status: Resolved Qualifiers: Sepsis type: sepsis due to unspecified organism Qualified Code(s): A41.9 - Sepsis, unspecified organism (9) Early satiety Current Visit: Yes Status: Acute (10) Weight loss Current Visit: Yes Status: Acute (11) Atrial fibrillation Current Visit: No Status: Chronic Qualifiers: Atrial fibrillation type: paroxysmal Qualified Code(s): I48.0 - Paroxysmal atrial fibrillation (12) Hypertension Current Visit: No Status: Chronic Qualifiers: Hypertension type: essential hypertension Qualified Code(s): I10 - Essential (primary) hypertension - Time Spent With Patient Total time spent is greater than 50% in coordination of care (as documented) at patient's floor/unit and/or counseling patient: - Constitutional Vitals: Temp Pulse Resp BP Pulse Ox 98.6 F 96 16 104/55 99 10/17/17 15:18 10/17/17 15:18 10/17/17 15:18 10/17/17 15:18 10/17/17 15:18 Internal Medicine: Result - Labs CBC & Chem 7: 10/17/17 01:56 10/17/17 01:56 Labs: Short CBC 10/17/17 Range/Units 01:56 WBC 9.8 (4.3-11.1) K/mcL Hgb 10.9 L D (12.9-16.9) g/dL Hct 32.4 L (37.5-50.1) % Plt Count 264 (140-400) K/mcL BMP 10/17/17 01:56 Sodium 131 L Potassium 4.0 Chloride 97 L Carbon Dioxide 22 L BUN 22 Creatinine 1.05 Glucose 203 H Calcium 9.2 Liver Function 10/17/17 Range/Units 01:56 Total Bilirubin 1.1 H (0.3-1.0) mg/dL AST 46 H (13-39) Units/L ALT 47 (7-52) Units/L Alkaline Phosphatase 221 H (34-104) Units/L Albumin 2.9 L (3.5-5.7) g/dL - ABG Interpretation ABG results: ABG ABG pH 7.46 pH Units (7.32-7.45) H 10/16/17 14:34 ABG pCO2 30 mmHg (35-45) L 10/16/17 14:34 ABG pO2 80 mmHg (85-104) L 10/16/17 14:34 ABG O2 Saturation 97 % (95-98) 10/16/17 14:34 PT/INR, D-dimer PT 18.2 Seconds (9.4-12.1) H 10/16/17 14:47 - Impressions Impressions Echocardiogram Limited Views 10/17/17 19:41 Impressions: LVEF 55%. Normal LV chamber size and wall thickness. RV is mildly dilated. Function appears normal. Left Ventricular Wall Motion: Rest Echo Findings All wall segments showed normal motion. Findings: Study Quality * Technically adequate exam. ECG Findings * Atrial fibrillation. Left Ventricle * LVEF 55%. * Normal LV chamber size and wall thickness. Right Ventricle * RV is mildly dilated. Function appears normal. Aorta * Normally sized aortic root. Pericardium * There is no pericardial effusion present. Left Atrium * Severely dilated left atrium. Right Atrium * Severely dilated right atrium. IVC * Normal IVC dimensions and inspiratory collapse. - Attending Attestation I examined this patient and my medical decision-making was reviewed with the Resident Physician on 10/17/17. I agree with the documented findings, disposition and treatment plan as described except to the extent set forth below. Mr Perez is currently admitted for sepsis related to presumed pneumonia as well as rapid a fib. He remains moderate to high risk due to potential for worsening clinical status. Mr Perez is beginning to feel better. No fever or chills at this time. Remains tachycardic at times. Now on oxymask. No CP. Denies GI issues. Exam alert Comfortable at rest. Mucus membranes dry Heart irreg and tachy Lungs with some rhonchi Abd soft I/P 1. Sepsis resolved 2. Rapid a fib - wean from drip to PO as able 3. PNA on abx Further diagnoses and plan as above.
[2017-10-17] MEDS: Furosemide 20 MG/2 ML VIAL IVP SCH ×2 (09:13→16:40)
[2017-10-17] MEDS: *HR* Enoxaparin 40 MG/0.4 ML SYRINGE SQ SCH (09:13)
[2017-10-17] MEDS: Aspirin Enteric Coated 81 MG Tablet PO SCH (09:13)
[2017-10-17] MEDS: Venlafaxine XR (24 HR) 150 MG CAP.ER.24H PO SCH (09:13)
[2017-10-17] MEDS ORDERED: D5% in Water 1,000 ML IVC PRN (11:36)
[2017-10-17] MEDS ORDERED: Dextrose Gel 15 GM/37.5 ML TUBE PO PRN ×2 (11:36)
[2017-10-17] MEDS ORDERED: *HR* Dextrose 50 % in Water (Syg) 50 ML SYRINGE IVP PRN (11:36)
[2017-10-17] MEDS ORDERED: Insulin LISPRO 300 UNITS/3 ML VIAL SQ SCH ×2 (11:45)
[2017-10-17] MEDS: Metoclopramide 20 MG in 0.9 % Sodium Chloride 50 ML IVPB SCH (16:41)
[2017-10-17] MEDS ORDERED: Melatonin 3 MG TABLET PO ONE (22:00)
[2017-10-18] MEDS: Metoclopramide 20 MG in 0.9 % Sodium Chloride 50 ML IVPB SCH ×3 (00:57→17:01)
[2017-10-18] MEDS: Ipratropium/Albuterol Neb 3 ML IH SCH ×2 (03:34→10:44)
[2017-10-18 04:44] LABS: Basophils % 0.1 %; Eosinophils % 0.1 %; Hematocrit 30.4 % (37.5-50.1); Hemoglobin 10.4 g/dL (12.9-16.9); Immature Granulocytes % 0.6 % (0-4); Lymphocytes # 0.5 K/mcL (0.6-4.6); Lymphocytes % 5.8 %; Mean Corpuscular HGB Conc 34.2 g/dL (31.6-35.5); Mean Corpuscular Hemoglobin 28.7 pg (28.0-33.3); Mean Corpuscular Volume 83.7 fL (83.0-100.0); Monocytes # 0.8 K/mcL (0.0-1.3); Monocytes % 9.3 %; Neutrophils # 7.4 K/mcL (1.6-8.9); Nucleated Red Blood Cells 0.2 /100 WBC (0); Platelet Count 248 K/mcL (140-400); Red Blood Count 3.63 M/mcL (4.19-5.50); Red Cell Distribution Width 15.1 % (11.5-14.5); Segmented Neutrophils % 84.1 %
[2017-10-18 05:05] LABS: Albumin 2.9 g/dL (3.5-5.7); Albumin/Globulin Ratio 0.9 (1.1-2.2); Calcium 9.1 mg/dL (8.6-10.3); Globulin 3.1 g/dL (2.4-3.5); Potassium 3.9 mEq/L (3.5-5.1)
[2017-10-18] MEDS: Cefepime HCl 1,000 MG in Water for inj. (sterile) 20 ML 10 ML IVP SCH ×2 (06:34→18:45)
[2017-10-18] MEDS: *HR* Enoxaparin 40 MG/0.4 ML SYRINGE SQ SCH (06:34)
--- NOTE | 2017-10-18 09:30 | Internal Med Progress Note ---
Addendum entered and electronically signed by Darrell Ye DO 13:55: ID: Continue Flagyl, Vancomycin, and Cefepime till 10/23/17 for left foot ulcers. Original Note: <Darrell Ye - Last Filed: 10/18/17 11:27> Date of Encounter: 10/18/17 Time of Encounter: 09:29 - Assessment and plan (1) Sepsis Current Visit: Yes Status: Resolved Assessment and plan: Acute metabolic encephalopathy secondary to hypoxic respiratory failure due to sepsis from a community-acquired pneumonia unclear etiology combined with acute pulmonary edema, lactic acidosis CT angio revealed no PE, conslidative changes bilaterally with vascular engorgement and bilateral pleural effusion. Urine antigens negative. Lactic acid 2.0 Echo with EF 55%. Did have fever up to 100.6 overnight. -Blood cultures preliminary no growth -Continue with Levaquin and Cefepime d3. Additional blood cultures ordered, UA, and respiratory panel due to fever. -Hold lasix at this time due to hypotension. Qualifiers: Sepsis type: sepsis due to unspecified organism Qualified Code(s): A41.9 - Sepsis, unspecified organism (2) CHF exacerbation Current Visit: Yes Status: Suspected Assessment and plan: Questionable due to bilateral pleural effusion noted on imaging. No prior history of CHF. Echo EF 55% Qualifiers: Heart failure type: diastolic Qualified Code(s): I50.33 - Acute on chronic diastolic (congestive) heart failure (3) Atrial fibrillation with rapid ventricular response Current Visit: Yes Status: Acute Assessment and plan: A. fib with rapid ventricular response secondary to sepsis and hypoxia Rate this morning between 75-100. Cardizem drip discontinued -Restarted metoprolol home dosing. (4) Hyponatremia Current Visit: Yes Status: Chronic Assessment and plan: Improving. Na 132 this morning. (5) Pneumonia Current Visit: Yes Status: Suspected Assessment and plan: CXR revealed pulmonary edema and focal consolidation in Left upper airways. CTA revealed consolidateive changes bilateraly and bilateral pleural effusion and vascular engorgement. -Continue with Levaquin and Cefepime d3. Qualifiers: Pneumonia type: due to Pneumococcus Laterality: left Lung location: upper lobe of lung Qualified Code(s): J13 - Pneumonia due to Streptococcus pneumoniae (6) Hyperkalemia Current Visit: Yes Status: Resolved Assessment and plan: Resolved. Initially 5.2, currently 3.9 Continue monitoring labs. (7) Hypertension Current Visit: No Status: Chronic Assessment and plan: Actually has had borderline low bp during admission. Contniue to monitor. Held lasix at this time. Qualifiers: Hypertension type: essential hypertension Qualified Code(s): I10 - Essential (primary) hypertension (8) Atrial fibrillation Current Visit: No Status: Chronic Assessment and plan: History of afib not on anticoagulation. Currently rate controlled. Continue with home metoprolol. Qualifiers: Atrial fibrillation type: paroxysmal Qualified Code(s): I48.0 - Paroxysmal atrial fibrillation (9) Early satiety Current Visit: Yes Status: Acute Assessment and plan: Reports eating very little and feeling full. Has had about 30Lb weight loss over past months, likely due to poor appetite. -hemoccult ordered -Nutrition consult ordered. -Consider Endoscopy if suspicion for malignancy. Due to history of diabetes, will trial reglan at this time. Did eat 90% of breakfast this morning without difficulty. If still no improvement to contact GI and determine whether needing endoscopy. 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 Perez reports doing well this morning. No shortness of breath. He still questions how he got to the hospital. Denies fevers, chills, sweats, nausea, vomiting, chest pain, abdominal pain, changes in bowels or bladder, dysuria, weakness, or loss of sensation. - Constitutional Vitals: Temp Pulse Resp BP Pulse Ox 97.8 F 75 15 87/55 94 10/18/17 06:46 10/18/17 06:46 10/18/17 06:46 10/18/17 06:46 10/18/17 06:46 General appearance: Present: A&O X 3 (Confused at times), pleasant, no acute distress, answers questions appropriately - Head Head exam: Present: atraumatic, normal inspection, normocephalic - Eye Eye exam: Present: EOMI, normal appearance - ENT ENT exam: Present: mucous membranes moist, normal exam - Neck Neck exam general surgery: Present: full ROM, normal inspection, supple, trachea midline - Respiratory Respiratory exam: Present: CTAB. Absent: rales, respiratory distress, rhonchi, wheezes - Cardiovascular Cardiovascular exam: Present: irregular rhythm, +S1, +S2 - GI/Abdominal GI/Abdominal exam: Present: normal bowel sounds, soft. Absent: distended, tenderness - Extremities Exam Extremities exam: Present: full ROM, normal inspection, warm, radial pulses palpable and symmetrical. Absent: pedal edema - Skin Skin exam: Present: dry, intact, normal color, warm. Absent: rash Internal Medicine: Result - Labs CBC & Chem 7: 10/18/17 04:00 10/18/17 04:00 Labs: Short CBC 10/18/17 Range/Units 04:00 WBC 8.8 (4.3-11.1) K/mcL Hgb 10.4 L (12.9-16.9) g/dL Hct 30.4 L (37.5-50.1) % Plt Count 248 (140-400) K/mcL Neutrophils # 7.4 (1.6-8.9) K/mcL BMP 10/18/17 04:00 Sodium 132 L Potassium 3.9 Chloride 94 L Carbon Dioxide 28 BUN 28 H Creatinine 1.39 H Glucose 143 H Calcium 9.1 Liver Function 10/18/17 Range/Units 04:00 Total Bilirubin 1.0 (0.3-1.0) mg/dL AST 58 H (13-39) Units/L ALT 51 (7-52) Units/L Alkaline Phosphatase 238 H (34-104) Units/L Albumin 2.9 L (3.5-5.7) g/dL - ABG Interpretation ABG results: ABG ABG pH 7.46 pH Units (7.32-7.45) H 10/16/17 14:34 ABG pCO2 30 mmHg (35-45) L 10/16/17 14:34 ABG pO2 80 mmHg (85-104) L 10/16/17 14:34 ABG O2 Saturation 97 % (95-98) 10/16/17 14:34 PT/INR, D-dimer PT 18.2 Seconds (9.4-12.1) H 10/16/17 14:47 - Impressions Impressions Echocardiogram Limited Views 10/17/17 19:41 Impressions: LVEF 55%. Normal LV chamber size and wall thickness. RV is mildly dilated. Function appears normal. Left Ventricular Wall Motion: Rest Echo Findings All wall segments showed normal motion. Findings: Study Quality * Technically adequate exam. ECG Findings * Atrial fibrillation. Left Ventricle * LVEF 55%. * Normal LV chamber size and wall thickness. Right Ventricle * RV is mildly dilated. Function appears normal. Aorta * Normally sized aortic root. Pericardium * There is no pericardial effusion present. Left Atrium * Severely dilated left atrium. Right Atrium * Severely dilated right atrium. IVC * Normal IVC dimensions and inspiratory collapse. - VTE Documentation of Mechanical Device: Intermittent pneumatic compression device Consult Discharge Plan - Plan Referrals: Buck Stroud MD [Primary Care Provider] - 10/23/17 11:30 am <Anastacio Valentino - Last Filed: 10/18/17 16:37> Date of Encounter: 10/18/17 - Assessment and plan (1) Hyperkalemia Current Visit: Yes Status: Resolved (2) Diabetes mellitus Current Visit: No Status: Chronic Qualifiers: Diabetes mellitus type: type 2 Diabetes mellitus senior living insulin use: without senior living use Diabetes mellitus complication status: with unspecified complications Qualified Code(s): E11.8 - Type 2 diabetes mellitus with unspecified complications (3) Hypertension Current Visit: No Status: Chronic Qualifiers: Hypertension type: essential hypertension Qualified Code(s): I10 - Essential (primary) hypertension (4) Atrial fibrillation Current Visit: No Status: Chronic Qualifiers: Atrial fibrillation type: paroxysmal Qualified Code(s): I48.0 - Paroxysmal atrial fibrillation (5) Pneumonia Current Visit: Yes Status: Suspected Qualifiers: Pneumonia type: due to Pneumococcus Laterality: left Lung location: upper lobe of lung Qualified Code(s): J13 - Pneumonia due to Streptococcus pneumoniae (6) CHF exacerbation Current Visit: Yes Status: Suspected Qualifiers: Heart failure type: diastolic Qualified Code(s): I50.33 - Acute on chronic diastolic (congestive) heart failure (7) Atrial fibrillation with rapid ventricular response Current Visit: Yes Status: Acute (8) Hyponatremia Current Visit: Yes Status: Chronic (9) Sepsis Current Visit: Yes Status: Resolved Qualifiers: Sepsis type: sepsis due to unspecified organism Qualified Code(s): A41.9 - Sepsis, unspecified organism (10) Early satiety Current Visit: Yes Status: Acute (11) Weight loss Current Visit: Yes Status: Acute (12) Acute respiratory failure with hypoxia Current Visit: Yes Status: Acute - Time Spent With Patient Total time spent is greater than 50% in coordination of care (as documented) at patient's floor/unit and/or counseling patient: - Constitutional Vitals: Temp Pulse Resp BP Pulse Ox 97.8 F 77 15 101/69 98 10/18/17 15:20 10/18/17 15:20 10/18/17 15:20 10/18/17 15:20 10/18/17 15:20 Internal Medicine: Result - Labs CBC & Chem 7: 10/18/17 04:00 10/18/17 04:00 Labs: Short CBC 10/18/17 Range/Units 04:00 WBC 8.8 (4.3-11.1) K/mcL Hgb 10.4 L (12.9-16.9) g/dL Hct 30.4 L (37.5-50.1) % Plt Count 248 (140-400) K/mcL Neutrophils # 7.4 (1.6-8.9) K/mcL BMP 10/18/17 04:00 Sodium 132 L Potassium 3.9 Chloride 94 L Carbon Dioxide 28 BUN 28 H Creatinine 1.39 H Glucose 143 H Calcium 9.1 Liver Function 10/18/17 Range/Units 04:00 Total Bilirubin 1.0 (0.3-1.0) mg/dL AST 58 H (13-39) Units/L ALT 51 (7-52) Units/L Alkaline Phosphatase 238 H (34-104) Units/L Albumin 2.9 L (3.5-5.7) g/dL - ABG Interpretation ABG results: ABG ABG pH 7.46 pH Units (7.32-7.45) H 10/16/17 14:34 ABG pCO2 30 mmHg (35-45) L 10/16/17 14:34 ABG pO2 80 mmHg (85-104) L 10/16/17 14:34 ABG O2 Saturation 97 % (95-98) 10/16/17 14:34 PT/INR, D-dimer PT 18.2 Seconds (9.4-12.1) H 10/16/17 14:47 - Attending Attestation I examined this patient and my medical decision-making was reviewed with the Resident Physician on 10/18/17. I agree with the documented findings, disposition and treatment plan as described except to the extent set forth below. Mr Perez is currently admitted for presumed pneumonia and resp failure. He remains moderate to high risk due to potential for worsening clinical status. Mr Perez had low grade temp last night. None now. Currently on less oxygen. Still has tachycardia and BP has been up and down. No GI issues. Exam Alert Comfortable at this time. Mucus membranes dry Heart irreg and tachy Lungs diminished Abd soft I/P 1. Resp failure 2. Probable pneumonia 3. ANALISA Further diagnoses and plan as above.
[2017-10-18] MEDS: Insulin LISPRO 300 UNITS/3 ML VIAL SQ SCH ×3 (09:42→17:01)
[2017-10-18] MEDS: Aspirin Enteric Coated 81 MG Tablet PO SCH (09:42)
[2017-10-18] MEDS: Furosemide 20 MG/2 ML VIAL IVP SCH (09:42)
[2017-10-18] MEDS: Venlafaxine XR (24 HR) 150 MG CAP.ER.24H PO SCH (09:42)
[2017-10-18] MEDS: Levofloxacin 750 MG/150 ML 750 MG/150 ML BAG IVPB SCH (10:15)
[2017-10-18] MEDS ORDERED: Ipratropium/Albuterol Neb 3 ML IH PRN (13:57)
[2017-10-18 15:42] LABS: Adenovirus Not Detected (Not Detect); Bordetella Pertussis Not Detected (Not Detect); Chlamydophila pneumoniae Not Detected (Not Detect); Coronavirus 229E Not Detected (Not Detect); Coronavirus HKU1 Not Detected (Not Detect); Coronavirus NL63 Not Detected (Not Detect); Coronavirus OC43 Not Detected (Not Detect); Human Metapneumovirus Not Detected (Not Detect); Human Rhinovirus/Enterovirus Not Detected (Not Detect); Influenza A Subtype 2009 H1 Not Detected (Not Detect); Influenza A Untypeable Not Detected (Not Detect); Influenza B Not Detected (Not Detect); Mycoplasma pneumoniae Not Detected (Not Detect); Parainfluenza Virus 1 Not Detected (Not Detect); Parainfluenza Virus 2 Not Detected (Not Detect); Parainfluenza Virus 3 Not Detected (Not Detect); Parainfluenza Virus 4 Not Detected (Not Detect); Respiratory Syncytial Virus Not Detected (Not Detect)
[2017-10-18 23:48] LABS: Bilirubin,Urine Negative (Negative); Blood,Urine Negative (Negative); Clarity,Urine Clear (Clear); Color,Urine Yellow (Yellow); Glucose,Urine (UA) Normal (Normal); Ketones,Urine Negative (Negative); Leukocyte Esterase,Urine Trace (Negative); Nitrite,Urine Negative (Negative); PH,Urine 5.5 pH Units (5.0-8.0); Protein,Urine 30 mg/dL (Neg-Trace); Specific Gravity,Urine 1.023 (1.010-1.025); Urobilinogen,Urine Normal (Normal)
[2017-10-18 23:51] LABS: Bacteria,Urine None Seen per hpf (None-Few); Hyaline Casts,Urine None Seen per lpf (None-Few); Squamous Epithelial Cell,Urine Many per lpf (None-Few)
[2017-10-18] MEDS ORDERED: 0.9 % Sodium Chloride 1,000 ML IVC ONE (23:54)
[2017-10-19] MEDS: Metoclopramide 20 MG in 0.9 % Sodium Chloride 50 ML IVPB SCH ×4 (00:14→23:56)
[2017-10-19 05:24] LABS: Basophils % 0.3 %; Eosinophils % 0.5 %; Hematocrit 29.3 % (37.5-50.1); Hemoglobin 9.9 g/dL (12.9-16.9); Immature Granulocytes % 0.7 % (0-4); Lymphocytes # 0.5 K/mcL (0.6-4.6); Lymphocytes % 7.9 %; Mean Corpuscular HGB Conc 33.8 g/dL (31.6-35.5); Mean Corpuscular Hemoglobin 28.6 pg (28.0-33.3); Mean Corpuscular Volume 84.7 fL (83.0-100.0); Mean Platelet Volume 10.6 fL (9.4-12.4); Monocytes # 0.5 K/mcL (0.0-1.3); Monocytes % 8.8 %; Neutrophils # 4.8 K/mcL (1.6-8.9); Platelet Count 231 K/mcL (140-400); Red Blood Count 3.46 M/mcL (4.19-5.50); Red Cell Distribution Width 15.1 % (11.5-14.5); Segmented Neutrophils % 81.8 %
[2017-10-19] MEDS: Cefepime HCl 1,000 MG in Water for inj. (sterile) 20 ML 10 ML IVP SCH ×2 (05:38→17:27)
[2017-10-19] MEDS: *HR* Enoxaparin 40 MG/0.4 ML SYRINGE SQ SCH (05:39)
[2017-10-19 05:41] LABS: BUN/Creatinine Ratio 20 (6-26); Blood Urea Nitrogen 20 mg/dL (8-23); Calcium 8.6 mg/dL (8.6-10.3); Carbon Dioxide 28 mEq/L (23-29); Chloride 98 mEq/L (98-107); Glucose 121 mg/dL (70-105); Osmolality,Calculated 278 (280-300); Potassium 3.8 mEq/L (3.5-5.1); Sodium 132 mEq/L (136-145); eGFR For African Americans > 60 (> 60); eGFR For Non-African Americans > 60 (> 60)
[2017-10-19 05:58] LABS: Thyroid Stimulating Hormone 1.419 mcIU/mL (0.340-5.600)
[2017-10-19] MEDS: Venlafaxine XR (24 HR) 150 MG CAP.ER.24H PO SCH (08:21)
[2017-10-19] MEDS: Aspirin Enteric Coated 81 MG Tablet PO SCH (08:21)
[2017-10-19] MEDS: Insulin LISPRO 300 UNITS/3 ML VIAL SQ SCH ×3 (08:22→17:29)
--- NOTE | 2017-10-19 08:35 | Internal Med Progress Note ---
Addendum entered and electronically signed by Darrell Ye DO 15:20: 1. Afib with rvr: Cardio plans to initiate Digoxin therapy and resume beta carol therapy. Currently rate in 110-120s. Bp stable 110s/70-80s. Original Note: <Darrell Ye - Last Filed: 10/19/17 15:13> Date of Encounter: 10/19/17 Time of Encounter: 08:31 - Assessment and plan (1) Atrial fibrillation with rapid ventricular response Current Visit: Yes Status: Acute Assessment and plan: A. fib with rapid ventricular response secondary to sepsis and hypoxia Rate this morning between 90-160s. Cardizem drip resumed. -Cardizem 30mg q6h -Metorpolol home dosing of 75mg bid was discontinued due to episodes of hypotension. -Cardio consulted for recommendations (2) Sepsis Current Visit: Yes Status: Resolved Assessment and plan: Acute metabolic encephalopathy secondary to hypoxic respiratory failure due to sepsis from a community-acquired pneumonia unclear etiology combined with acute pulmonary edema, lactic acidosis CT angio revealed no PE, conslidative changes bilaterally with vascular engorgement and bilateral pleural effusion. Urine antigens negative. Lactic acid 2.0 Echo with EF 55%. Did have fever up to 100.6 10/17/17 evening. Occassionally has elevated temp < 99.9F in the evenings. UA without obvious signs of UTI. Respiratory panel negative Cr 1.[address] abd/pelvis with oral contrast & CT chest: prelim: b/l pleuroparenchymal changes imprved from prior study. Slight interval increase in mediastinal adenopathy size. Adenopathy within upper abdomen and retroperitoneum appears new compared to study from 12/24/2016. Small amounts of ascites noted within the abdomen which could be related to underlying cardiac or renal dysfunction. Cholelithiasis. Prostatomegaly and irregularlity of the prostate. -Blood cultures preliminary no growth -Additional blood cultures pending -Continue with Levaquin and Cefepime d4. -resume low dose lasix, watch bp closely -Albumin to help draw intravascularly. Qualifiers: Sepsis type: sepsis due to unspecified organism Qualified Code(s): A41.9 - Sepsis, unspecified organism (3) CHF exacerbation Current Visit: Yes Status: Suspected Assessment and plan: Questionable due to bilateral pleural effusion noted on imaging. Redemonstration of pleural effusion on repeat CXR No prior history of CHF. Echo EF 55% -Resume low dose lasix as patient continues to have bilateral rales. -Albumin ordered Qualifiers: Heart failure type: diastolic Qualified Code(s): I50.33 - Acute on chronic diastolic (congestive) heart failure (4) Pneumonia Current Visit: Yes Status: Suspected Assessment and plan: CXR revealed pulmonary edema and focal consolidation in Left upper airways. CTA revealed consolidateive changes bilateraly and bilateral pleural effusion and vascular engorgement. Repeat CXR revealed redemonstration of biilateral pleural effusion, small moderate size with adjacent airspace disease concerning for edema vs pneumonia vs atelectasis. -Continue with Levaquin and Cefepime d4. Qualifiers: Pneumonia type: due to Pneumococcus Laterality: left Lung location: upper lobe of lung Qualified Code(s): J13 - Pneumonia due to Streptococcus pneumoniae (5) Acute respiratory failure with hypoxia Current Visit: Yes Status: Acute Assessment and plan: per plan in assessment above. (6) Early satiety Current Visit: Yes Status: Acute Assessment and plan: Reports eating very little and feeling full. Has had about 30Lb weight loss over past months, likely due to poor appetite. -hemoccult ordered -Nutrition consult ordered. -Consider Endoscopy if suspicion for malignancy. Due to history of diabetes, will trial reglan at this time. Did not eat dinner or breakfast. If still no improvement to contact GI and determine whether needing endoscopy. (7) Weight loss Current Visit: Yes Status: Acute Assessment and plan: per plan in assessment above (8) Hyponatremia Current Visit: Yes Status: Chronic Assessment and plan: Improving. Na 132 this morning. (9) Atrial fibrillation Current Visit: Yes Status: Chronic Assessment and plan: History of afib not on anticoagulation. Continue per plan in assessment above. Cardio consulted. Qualifiers: Atrial fibrillation type: paroxysmal Qualified Code(s): I48.0 - Paroxysmal atrial fibrillation (10) Hypertension Current Visit: Yes Status: Chronic Assessment and plan: Actually has had borderline low bp during admission and this morning after discontinued lasix yesterday appears to be within normal range. 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 Initially 5.2, currently 3.8 Continue monitoring labs. (13) History of prostate cancer Current Visit: No Status: Acute Assessment and plan: History of prostate cancer > 10 years ago. Reviewed old [facility] records. PSA at peak 04/17/2006 was 8.43 Last PSA completed after treatment 0.35 Will recheck PSA as patient has some new nodes noted on CT in the retroperitoneal space. - Time Spent With Patient Total time spent is greater than 50% in coordination of care (as documented) at patient's floor/unit and/or counseling patient: - Subjective Interval history: Mr. Perez reports doing okay this morning. He has some shortness of breath. He also has left sided rib pain. His heart rate went to 160 bpm overnight due to his afib despite receiving three doses or oral cardizem when cardizem drip disontinued. Patient denies fevers, chills, sweats, nausea, vomiting, chest pain, abdominal pain, changes in bowels or bladder, dysuria, weakness, or loss of sensation. Does have reported early satiety and 30Lb weight loss over past couple months. - Constitutional Vitals: Temp Pulse Resp BP Pulse Ox 98.3 F 106 17 118/95 98 10/19/17 06:37 10/19/17 06:37 10/19/17 06:37 10/19/17 06:37 10/19/17 06:37 General appearance: Present: A&O X 2 (confused at times), pleasant, no acute distress, answers questions appropriately - Head Head exam: Present: atraumatic, normal inspection, normocephalic - Eye Eye exam: Present: EOMI, normal appearance - ENT ENT exam: Present: mucous membranes moist, normal exam - Neck Neck exam general surgery: Present: full ROM, normal inspection, supple, trachea midline - Respiratory Respiratory exam: Present: rales (bilateral lower lobes). Absent: respiratory distress, rhonchi, wheezes Additional comments: on 3L mask - Cardiovascular Cardiovascular exam: Present: irregular rhythm, tachycardia - GI/Abdominal GI/Abdominal exam: Present: normal bowel sounds, soft. Absent: distended, tenderness - Extremities Exam Extremities exam: Present: full ROM, normal inspection, warm, radial pulses palpable and symmetrical. Absent: pedal edema - Skin Skin exam: Present: dry, intact, normal color, warm. Absent: rash Internal Medicine: Result - Labs CBC & Chem 7: 10/19/17 05:04 10/19/17 05:04 Labs: Short CBC 10/19/17 Range/Units 05:04 WBC 5.8 (4.3-11.1) K/mcL Hgb 9.9 L (12.9-16.9) g/dL Hct 29.3 L (37.5-50.1) % Plt Count 231 (140-400) K/mcL Neutrophils # 4.8 (1.6-8.9) K/mcL BMP 10/19/17 05:04 Sodium 132 L Potassium 3.8 Chloride 98 Carbon Dioxide 28 BUN 20 Creatinine 1.00 Glucose 121 H Calcium 8.6 Urine 10/18/17 Range/Units 23:35 Urine Color Yellow (Yellow) Urine Clarity Clear (Clear) Urine pH 5.5 (5.0-8.0) pH Units Ur Specific Lyons 1.023 (1.010-1.025) Urine Protein 30 H (Neg-Trace) mg/dL Urine Glucose (UA) Normal (Normal) mg/dL - ABG Interpretation ABG results: ABG ABG pH 7.46 pH Units (7.32-7.45) H 10/16/17 14:34 ABG pCO2 30 mmHg (35-45) L 10/16/17 14:34 ABG pO2 80 mmHg (85-104) L 10/16/17 14:34 ABG O2 Saturation 97 % (95-98) 10/16/17 14:34 PT/INR, D-dimer PT 18.2 Seconds (9.4-12.1) H 10/16/17 14:47 - Impressions Impressions Chest X-Ray 10/18/17 16:07 IMPRESSION: Re- demonstration of bilateral pleural effusions, small moderate size, with adjacent airspace disease, edema versus pneumonia versus atelectasis. D/ / Mitchell Rizo MD / Mitchell Rizo MD Interpreting Provider: Mitchell Rizo MD - VTE Documentation of Mechanical Device: Graduated compression elastic hosiery Consult Discharge Plan - Plan Referrals: Buck Stroud MD [Primary Care Provider] - 10/23/17 11:30 am <Anastacio Valentino - Last Filed: 10/19/17 16:28> Date of Encounter: 10/19/17 - Assessment and plan (1) Acute respiratory failure with hypoxia Current Visit: Yes Status: Acute (2) Pneumonia Current Visit: Yes Status: Suspected Qualifiers: Pneumonia type: due to Pneumococcus Laterality: left Lung location: upper lobe of lung Qualified Code(s): J13 - Pneumonia due to Streptococcus pneumoniae (3) Hyperkalemia Current Visit: Yes Status: Resolved (4) Diabetes mellitus Current Visit: No Status: Chronic Qualifiers: Diabetes mellitus type: type 2 Diabetes mellitus alf insulin use: without truck terminal manager use Diabetes mellitus complication status: with unspecified complications Qualified Code(s): E11.8 - Type 2 diabetes mellitus with unspecified complications (5) Hypertension Current Visit: Yes Status: Chronic Qualifiers: Hypertension type: essential hypertension Qualified Code(s): I10 - Essential (primary) hypertension (6) Atrial fibrillation Current Visit: Yes Status: Chronic Qualifiers: Atrial fibrillation type: paroxysmal Qualified Code(s): I48.0 - Paroxysmal atrial fibrillation (7) CHF exacerbation Current Visit: Yes Status: Suspected Qualifiers: Heart failure type: diastolic Qualified Code(s): I50.33 - Acute on chronic diastolic (congestive) heart failure (8) Atrial fibrillation with rapid ventricular response Current Visit: Yes Status: Acute (9) Hyponatremia Current Visit: Yes Status: Chronic (10) Sepsis Current Visit: Yes Status: Resolved Qualifiers: Sepsis type: sepsis due to unspecified organism Qualified Code(s): A41.9 - Sepsis, unspecified organism (11) Early satiety Current Visit: Yes Status: Acute (12) Weight loss Current Visit: Yes Status: Acute (13) History of prostate cancer Current Visit: No Status: Acute - Time Spent With Patient Total time spent is greater than 50% in coordination of care (as documented) at patient's floor/unit and/or counseling patient: - Constitutional Vitals: Temp Pulse Resp BP Pulse Ox 98.3 F 102 15 110/68 98 10/19/17 11:47 10/19/17 11:47 10/19/17 11:47 10/19/17 11:47 10/19/17 11:47 Internal Medicine: Result - Labs CBC & Chem 7: 10/19/17 05:04 10/19/17 05:04 Labs: Short CBC 10/19/17 Range/Units 05:04 WBC 5.8 (4.3-11.1) K/mcL Hgb 9.9 L (12.9-16.9) g/dL Hct 29.3 L (37.5-50.1) % Plt Count 231 (140-400) K/mcL Neutrophils # 4.8 (1.6-8.9) K/mcL BMP 10/19/17 05:04 Sodium 132 L Potassium 3.8 Chloride 98 Carbon Dioxide 28 BUN 20 Creatinine 1.00 Glucose 121 H Calcium 8.6 Urine 10/18/17 Range/Units 23:35 Urine Color Yellow (Yellow) Urine Clarity Clear (Clear) Urine pH 5.5 (5.0-8.0) pH Units Ur Specific Lyons 1.023 (1.010-1.025) Urine Protein 30 H (Neg-Trace) mg/dL Urine Glucose (UA) Normal (Normal) mg/dL - ABG Interpretation ABG results: ABG ABG pH 7.46 pH Units (7.32-7.45) H 10/16/17 14:34 ABG pCO2 30 mmHg (35-45) L 10/16/17 14:34 ABG pO2 80 mmHg (85-104) L 10/16/17 14:34 ABG O2 Saturation 97 % (95-98) 10/16/17 14:34 PT/INR, D-dimer PT 18.2 Seconds (9.4-12.1) H 10/16/17 14:47 - Impressions Impressions Chest X-Ray 10/18/17 16:07 IMPRESSION: Re- demonstration of bilateral pleural effusions, small moderate size, with adjacent airspace disease, edema versus pneumonia versus atelectasis. D/ / Mitchell Rizo MD / Mitchell Rizo MD Interpreting Provider: Mitchell Rizo MD Abdomen/Pelvis CT 10/19/17 11:30 IMPRESSION: Bilateral pleuroparenchymal changes which have improved from the prior study. Differential of pulmonary edema, atelectasis and/or pneumonia is similar to that seen on the prior study. Slight interval increase in size of mediastinal adenopathy which is nonspecific. Adenopathy within the upper abdomen and retroperitoneum appears new compared to the study from 12/24/2016. Benign and malignant etiologies are within the differential. Small amount of ascites noted within the abdomen which could be related to underlying cardiac or renal dysfunction. Cholelithiasis. If the patient has tenderness in the right upper quadrant or elevated clinical concerns right upper quadrant ultrasound could always be considered to further evaluate. Prostatomegaly and irregularity of the prostate which is nonspecific given reported history of prostate cancer. Please correlate with patient's PSA levels. Moderate coronary artery calcification is noted. D/ /19/2017 13:23:50 Santiago Peña MD / raven Interpreting Provider: Santiago Peña MD Chest CT 10/19/17 11:30 IMPRESSION: Bilateral pleuroparenchymal changes which have improved from the prior study. Differential of pulmonary edema, atelectasis and/or pneumonia is similar to that seen on the prior study. Slight interval increase in size of mediastinal adenopathy which is nonspecific. Adenopathy within the upper abdomen and retroperitoneum appears new compared to the study from 12/24/2016. Benign and malignant etiologies are within the differential. Small amount of ascites noted within the abdomen which could be related to underlying cardiac or renal dysfunction. Cholelithiasis. If the patient has tenderness in the right upper quadrant or elevated clinical concerns right upper quadrant ultrasound could always be considered to further evaluate. Prostatomegaly and irregularity of the prostate which is nonspecific given reported history of prostate cancer. Please correlate with patient's PSA levels. Moderate coronary artery calcification is noted. D/ /19/2017 13:23:50 Santiago Peña MD / raven Interpreting Provider: Santiago Peña MD - Attending Attestation I examined this patient and my medical decision-making was reviewed with the Resident Physician on 10/19/17. I agree with the documented findings, disposition and treatment plan as described except to the extent set forth below. Mr Perez is currently admitted for sepsis related to pneumonia. He remains moderate to high risk due to potential for worsening clinical status. Mr Perez had low BP last night. Heart rate has increased at times. He is not eating much he says. No pain. No worsened dyspnea. Exam alert Comfortable at rest Mucus membranes dry Heart tachy and irreg Lungs with bibasilar rales Abd soft I/P 1. CHF 2. Sepsis resolved 3. Rapid a fib - per cardiology today Pt had repeat CT chest, abd, pelvis. Has adenopathy - will need further GI workup.
[2017-10-19] MEDS ORDERED: Albumin 25% 25gram/100mL 25 GM/100 ML IV.SOLN IVPB ONE (10:34)
[2017-10-19] MEDS: Furosemide 20 MG/2 ML VIAL IVP SCH ×2 (11:51→17:28)
[2017-10-19] MEDS ORDERED: *HR* Digoxin 0.5 MG/2 ML AMPUL IVP ONE (13:42)
--- NOTE | 2017-10-19 13:48 | Cardiology Consult Note ---
<Evangelina De Paz - Last Filed: 10/19/17 13:52> Date of Encounter: 10/19/17 Time of Encounter: 11:30 Assessment and Plan (1) Atrial fibrillation with rapid ventricular response Status: Acute Per cardiology: -Known PAF. Now a.fib RVR in the setting of CAP, sepsis. -Denies palpiatation, fluttering. -Average HR previous 12 hours noted to be 136, a.fib. -On cardizem 30q6. ON BB in outpateint setting. Cardizem drip attempted, however patient became hypotensive. -[id number] score. 6 (age, HTN, CHF, vascular disease, DM). Not on anticoagulation due to anemia, GI bleed. Educated on increased risk of CVA/ embolic event. -Discussed and reviewed with , renal function at baseline today, will give IV digoxin load. -Will attempt to resume BB as BP will allow. -Will continue to monitor. (2) Diastolic CHF Status: Acute Per cardiology: -Known diastolic CHf. -Pleural effusions, pulmonary edema noted per chest x-ray. -On IV lasix. -Reports shortness of breath improvement today. -Net negative 1500ml. -Euvolemic on exam. However, is still requiring O2. -Strict i/os, fluid restriction, daily weights. -Consider switching lasix to oral tomorrow. -Will continue to monitor. Qualifiers: Heart failure chronicity: acute on chronic Qualified Code(s): I50.33 - Acute on chronic diastolic (congestive) heart failure Discussion w patient/family: The assessment and plan as outlined above was discussed with the patient who expressed understanding and agreement. All questions were answered. Thank you for involving us in the care of your patient. Please call with any questions. Discussed and reviewed with . History of Present Illness Consult date: 10/19/17 Requesting physician: Darrell Ye Consult reason: a.fib RVR Chief complaint: dyspnea, confusion History of present illness: Mr. Perez is a 82 year old male with a relevant past medical history of diastolic CHF, a.fib, HTN, DM, HLD, carotid stenosis, thoracic aortic anuerysm who presented to [facility] with complaints of worsening shortness of breath and confusion. Cardiology has been consulted for a.fib RVR, difficult to control due to hypotension. Patient reports breathing is better today. Denies chest pain. Denies palpitations or fluttering. Past Med Surg Social Fam HX - Past Medical History Attestation: Yes The following information was validated with the patient. Source: patient, old records reviewed Medical history: asthma, atrial fibrillation, CHF, coronary artery disease, diabetes, GI bleed, hyperlipidemia, hypertension, other Additional medical history: BPH Psychiatric history: depression - Past Surgical History Surgical History: no surgical history - Social History Smoking Status: Never smoker Smokeless Tobacco Status: No Alcohol use: none Drug use: none Medications and Allergies Albuterol Sulfate [Ventolin Hfa] 2 puff IH Q4H PRN 10/10/16 [History] Aspirin Enteric Coated [Aspirin EC] 81 mg PO DAILY 10/10/16 [History] Atorvastatin [Lipitor] 40 mg PO HS 10/10/16 [History] Budesonide/Formoterol 160/4.5 [Symbicort 160/4.5] 2 puff IH BIDR 10/10/16 [ History] Lisinopril [Zestril] 40 mg PO DAILY 10/10/16 [History] Sitagliptin Phos/Metformin HCl [Janumet 50-1,000 mg Tablet] 1 each PO BID [History] Tamsulosin [Flomax] 0.4 mg PO DAILY 10/10/16 [History] Venlafaxine XR (24 HR) [Effexor Xr] 150 mg PO DAILY 10/10/16 [History] Vit C/E/Zn/Coppr/Lutein/Zeaxan [Preservision Areds 2 Softgel] 1 cap PO BID 10/10 [History] Allopurinol [Zyloprim] 300 mg PO DAILY 10/16/17 [History] Furosemide [Lasix] 20 mg PO DAILY 10/16/17 [History] Glimepiride [Amaryl] 1 mg PO DAILY 10/16/17 [History] Digoxin [Lanoxin] 0.125 mg PO DAILY #30 tablet 10/23/17 [Rx] Diltiazem CD (24hr) [Cardizem CD] 180 mg PO DAILY #30 cap.er.24h 10/23/17 [Rx] Metoclopramide [Reglan] 5 mg PO QIDAC #60 tablet 10/23/17 [Rx] 3 Allergy/AdvReac Type Severity Reaction Status Date / Time pioglitazone Allergy Swelling Verified 10/10/16 15:05 of Lip/Tongue/Throat canagliflozin [From Invokana] AdvReac Dizziness Verified 10/10/16 15:05 All Systems Review: The remainder of the systems were reviewed and are negative - Cardiovascular Cardiovascular: as per HPI, dyspnea at rest, dyspnea on exertion Physical Examination Vital Signs, Last 4 Hours Temp Pulse Resp BP Pulse Ox 10/19/17 11:47 98.3 F 102 15 110/68 98 General: Conversant, No Apparent Distress HEENT: Atraumatic, Normocephaly, Mucus Membranes Moist Neck: No JVD, Normal carotid pulses Cardiac: Normal S1 and S2, No Murmur, Other (Irregularly irregular ) Lungs: Normal Breath Sounds, No Wheeze, Rales, Rhonchi Neuro: Alert and responsive, No focal deficits noted Abdomen: Soft, Non-Tender Skin: No rashes noted on visualized skin Musculoskeletal: No Chest Wall Tenderness Extremities: No Clubbing, No Cyanosis, No Edema, Normal Pulses Results 10/19/17 05:04 10/19/17 05:04 Lab Results Impressions Chest X-Ray 10/18/17 16:07 IMPRESSION: Re- demonstration of bilateral pleural effusions, small moderate size, with adjacent airspace disease, edema versus pneumonia versus atelectasis. D/ / Mitchell Rizo MD / Mitchell Rizo MD Interpreting Provider: Mitchell Rizo MD Abdomen/Pelvis CT 10/19/17 11:30 IMPRESSION: Bilateral pleuroparenchymal changes which have improved from the prior study. Differential of pulmonary edema, atelectasis and/or pneumonia is similar to that seen on the prior study. Slight interval increase in size of mediastinal adenopathy which is nonspecific. Adenopathy within the upper abdomen and retroperitoneum appears new compared to the study from 12/24/2016. Benign and malignant etiologies are within the differential. Small amount of ascites noted within the abdomen which could be related to underlying cardiac or renal dysfunction. Cholelithiasis. If the patient has tenderness in the right upper quadrant or elevated clinical concerns right upper quadrant ultrasound could always be considered to further evaluate. Prostatomegaly and irregularity of the prostate which is nonspecific given reported history of prostate cancer. Please correlate with patient's PSA levels. Moderate coronary artery calcification is noted. D/ 10/19/2017 13:23:50 Santiago Peña MD / raven Interpreting Provider: Santiago Peña MD Chest CT 10/19/17 11:30 IMPRESSION: Bilateral pleuroparenchymal changes which have improved from the prior study. Differential of pulmonary edema, atelectasis and/or pneumonia is similar to that seen on the prior study. Slight interval increase in size of mediastinal adenopathy which is nonspecific. Adenopathy within the upper abdomen and retroperitoneum appears new compared to the study from 12/24/2016. Benign and malignant etiologies are within the differential. Small amount of ascites noted within the abdomen which could be related to underlying cardiac or renal dysfunction. Cholelithiasis. If the patient has tenderness in the right upper quadrant or elevated clinical concerns right upper quadrant ultrasound could always be considered to further evaluate. Prostatomegaly and irregularity of the prostate which is nonspecific given reported history of prostate cancer. Please correlate with patient's PSA levels. Moderate coronary artery calcification is noted. D/ 10/19/2017 13:23:50 Santiago Peña MD / raven Interpreting Provider: Santiago Peña MD Active Medications Acetaminophen (Tylenol) 500 mg PO Q6HR PRN PRN Reason: Fever Stop: 04/18/18 23:48 Last Admin: 10/18/17 00:56 Dose: 500 mg Albuterol/Ipratropium (Duoneb) 3 ml IH [id number] PRN PRN Reason: Shortness Of Breath/Wheezing Stop: 04/19/18 13:58 Aspirin (Aspirin Ec) 81 mg PO DAILY SONIA Stop: 04/18/18 09:01 Last Admin: 10/19/17 08:21 Dose: 81 mg Atorvastatin Calcium (Lipitor) 40 mg PO HS SONIA Stop: 04/17/18 21:01 Last Admin: 10/18/17 20:31 Dose: 40 mg Dextrose/Water (Dextrose 50% (Syg)) 25 ml IVP AD PRN PRN Reason: Hypoglycemia Stop: 04/18/18 11:37 Digoxin (Lanoxin) 0.25 mg IVP Q6H [facility] Stop: 10/20/17 02:01 Diltiazem HCl (Cardizem) 30 mg PO Q6HR [facility] Stop: 04/19/18 18:01 Last Admin: 10/19/17 11:51 Dose: 30 mg Enoxaparin Sodium (Lovenox) 40 mg SQ 0600 SONIA PRN Reason: Protocol Stop: 04/17/18 19:02 Last Admin: 10/19/17 05:39 Dose: 40 mg Furosemide (Lasix) 20 mg IVP BIDDIURETIC [facility] Stop: 04/20/18 10:46 Last Admin: 10/19/17 11:51 Dose: 20 mg Glucagon (Glucagen) 1 mg IM ONCE PRN PRN Reason: Hypoglycemia Stop: 04/17/18 19:06 Glucose (Gluctose) 15 gm PO ONCE PRN PRN Reason: Hypoglycemia Stop: 04/18/18 11:37 Glucose (Gluctose) 30 gm PO ONCE PRN PRN Reason: Hypoglycemia Stop: 04/18/18 11:37 Cefepime HCl 1,000 mg/ Sterile (Water) 10 mls @ 300 mls/hr IVP Q12HR [facility] Stop: 04/18/18 06:01 Last Admin: 10/19/17 05:38 Dose: 300 mls/hr Levofloxacin/Dextrose (Levaquin Premix 750mg/150 Ml) 750 mg in 150 mls @ 100 mls/hr IVPB Q48H [facility] PRN Reason: Protocol Stop: 04/19/18 09:01 Last Admin: 10/18/17 10:15 Dose: 100 mls/hr Dextrose (Dextrose 5%) 1,000 mls @ 100 mls/hr IVC .Q10H PRN PRN Reason: HYPOGLYCEMIA Stop: 04/18/18 11:37 Metoclopramide HCl 20 mg/ (Sodium Chloride) 54 mls @ 108 mls/hr IVPB Q8H [facility] Stop: 10/20/17 16:01 Last Admin: 10/19/17 08:21 Dose: 108 mls/hr Insulin Human Lispro (Humalog) 0 units SQ TIDAC SONIA PRN Reason: Protocol Stop: 04/18/18 11:46 Last Admin: 10/19/17 11:51 Dose: Not Given Naloxone HCl (Narcan) 0.4 mg IVP Q2MIN PRN PRN Reason: SEE COMMENTS Stop: 04/17/18 19:06 Nitroglycerin (Nitroglycerin) 0.4 mg SL Q5MIN PRN PRN Reason: Chest Pain Stop: 04/17/18 19:02 Omeprazole (Prilosec) 40 mg PO DAILY@0630 SONIA PRN Reason: Protocol Stop: 04/17/18 19:03 Last Admin: 10/19/17 05:38 Dose: 40 mg Ondansetron HCl (Zofran) 4 mg IVP Q8HR PRN PRN Reason: Nausea And Vomiting Stop: 04/17/18 19:06 Oxycodone HCl (Oxycodone Oral Conc) 5 mg SL Q4H PRN; Protocol PRN Reason: mild to moderate pain Stop: 04/17/18 19:06 Oxycodone HCl (Oxycodone Oral Conc) 10 mg SL Q4H PRN; Protocol PRN Reason: Severe Pain Stop: 04/17/18 19:06 Tamsulosin HCl (Flomax) 0.4 mg PO DAILY [facility] PRN Reason: Protocol Stop: 04/18/18 09:01 Last Admin: 10/19/17 08:21 Dose: 0.4 mg Venlafaxine HCl (Effexor Xr) 150 mg PO DAILY [facility] PRN Reason: Protocol Stop: 04/18/18 09:01 Last Admin: 10/19/17 08:21 Dose: 150 mg Laboratory Tests 10/16/17 10/16/17 10/16/17 14:47 14:47 14:47 Hgb 12.7 L Potassium Creatinine Magnesium Troponin I 0.03 B-Natriuretic Peptide 729 H TSH 10/17/17 10/19/17 10/19/17 01:56 05:04 05:04 Hgb 9.9 L Potassium 3.8 Creatinine 1.00 Magnesium 1.8 Troponin I B-Natriuretic Peptide TSH 10/19/17 05:04 Hgb Potassium Creatinine Magnesium Troponin I B-Natriuretic Peptide TSH 1.419 - Imaging and Cardiology Chest Xray: report reviewed Echo: report reviewed - EKG Interpretation EKG results cardiology: personally reviewed (ECG with briseida RVPro), other ( Telemetry reviewed with average HR previous 12 hours noted to be 136, a.fib RVR. PVCs, couplets, triplets noted.) Consult Discharge Plan - Plan Instructions: Diltiazem (By mouth), Digoxin (By mouth), Metoclopramide (By mouth), Atrial Fibrillation (DC), Syncope (DC) Referrals: Buck Stroud MD [Primary Care Provider] - 10/23/17 11:30 am Prescriptions: Digoxin [Lanoxin] 0.125 mg PO DAILY #30 tablet Diltiazem CD (24hr) [Cardizem CD] 180 mg PO DAILY #30 cap.er.24h Metoclopramide [Reglan] 5 mg PO QIDAC #60 tablet <Kris Paez - Last Filed: 10/28/17 21:46> Date of Encounter: 10/28/17 - Attending Attestation I have personally performed a face to face evaluation on this patient. I have reviewed and agree with the care plan. History and Exam by me shows: CC: confusion, shortness of breath HPI: Pt evaluated in ER with complaints of increased confusion, and shortness of breath, worsening over the last 48 hours prior to admission, Pt orientated x 1 on admit. He reports symptoms have improved. He denies chest pain, pressure or palpitations, He has known hx PAF, asymptomatic. ROS: Reviewed PMH: Reviewed PE: PT seen and examined, agree with findings as listed in documentation. IMP/plan 1. A fib with RVR, secondary to sepsis, due to increased hemdynamic demands with sepsis, did not tolerate initial diltiazem drip due to hypotension, has improved, ventricular response rate now not well controlled with po diltiazem, will add IV dig, follow heart rate and blood pressure response. 2. Acute on chronic diastolic heart failure, has improved with IV diuresis with IV lasix, shortness of breath much improved, will switch to PO lasix for AM dosing. Assessment and Plan Discussion w patient/family: The assessment and plan as outlined above was discussed with the patient and/or family members who expressed understanding and agreement. All questions were answered. Thank you for involving us in the care of your patient. Please call with any questions. History of Present Illness History of present illness: Mr. Perez is a 82 year old male All Systems Review: The remainder of the systems were reviewed and are negative Results 10/22/17 03:59 10/22/17 03:59
[2017-10-19] MEDS: *HR* Digoxin 0.5 MG/2 ML AMPUL IVP SCH (20:25)
[2017-10-20] MEDS: *HR* Digoxin 0.5 MG/2 ML AMPUL IVP SCH (01:57)
[2017-10-20] MEDS: *HR* Enoxaparin 40 MG/0.4 ML SYRINGE SQ SCH (05:21)
[2017-10-20] MEDS: Cefepime HCl 1,000 MG in Water for inj. (sterile) 20 ML 10 ML IVP SCH ×2 (05:21→17:35)
[2017-10-20] MEDS: Insulin LISPRO 300 UNITS/3 ML VIAL SQ SCH ×3 (07:52→17:34)
[2017-10-20 09:31] LABS: Basophils % 0.2 %; Eosinophils # 0.1 K/mcL (0.0-0.6); Eosinophils % 1.5 %; Hematocrit 30.9 % (37.5-50.1); Hemoglobin 10.3 g/dL (12.9-16.9); Immature Granulocytes % 0.5 % (0-4); Lymphocytes # 0.4 K/mcL (0.6-4.6); Lymphocytes % 4.6 %; Mean Corpuscular HGB Conc 33.3 g/dL (31.6-35.5); Mean Corpuscular Hemoglobin 28.4 pg (28.0-33.3); Mean Corpuscular Volume 85.1 fL (83.0-100.0); Mean Platelet Volume 10.3 fL (9.4-12.4); Monocytes # 0.6 K/mcL (0.0-1.3); Monocytes % 7.4 %; Platelet Count 225 K/mcL (140-400); Red Blood Count 3.63 M/mcL (4.19-5.50); Segmented Neutrophils % 85.8 %
[2017-10-20 09:51] LABS: BUN/Creatinine Ratio 20 (6-26); Blood Urea Nitrogen 17 mg/dL (8-23); Calcium 8.9 mg/dL (8.6-10.3); Carbon Dioxide 29 mEq/L (23-29); Chloride 97 mEq/L (98-107); Glucose 204 mg/dL (70-105); Osmolality,Calculated 281 (280-300); Potassium 3.7 mEq/L (3.5-5.1); Sodium 132 mEq/L (136-145); eGFR For African Americans > 60 (> 60); eGFR For Non-African Americans > 60 (> 60)
[2017-10-20] MEDS: Metoclopramide 20 MG in 0.9 % Sodium Chloride 50 ML IVPB SCH ×2 (09:51→16:00)
[2017-10-20] MEDS: Venlafaxine XR (24 HR) 150 MG CAP.ER.24H PO SCH (09:51)
[2017-10-20] MEDS: Aspirin Enteric Coated 81 MG Tablet PO SCH (09:51)
[2017-10-20] MEDS: Furosemide 20 MG/2 ML VIAL IVP SCH (09:51)
[2017-10-20] MEDS: Levofloxacin 750 MG/150 ML 750 MG/150 ML BAG IVPB SCH (09:53)
--- NOTE | 2017-10-20 09:53 | Internal Med Progress Note ---
<EphraimDarrell Charles - Last Filed: 10/20/17 13:01> Date of Encounter: 10/20/17 Time of Encounter: 09:53 - Assessment and plan (1) Atrial fibrillation with rapid ventricular response Current Visit: Yes Status: Acute Assessment and plan: A. fib with rapid ventricular response secondary to sepsis and hypoxia Rate this morning between 90-110s, average 100 HEMANT-VASC 6, not on anticoagulation due to hx of gi bleed. -Cardizem 30mg q6h -Start oral digoxin. -Consider switching to Cardizem CD 120mg qd at discharge. -Cardio signed off, follow up as outpatient. (2) Sepsis Current Visit: Yes Status: Resolved Assessment and plan: Acute metabolic encephalopathy secondary to hypoxic respiratory failure due to sepsis from a community-acquired pneumonia unclear etiology combined with acute pulmonary edema, lactic acidosis CT angio revealed no PE, conslidative changes bilaterally with vascular engorgement and bilateral pleural effusion. Urine antigens negative. Lactic acid 2.0 Echo with EF 55%. Did have fever up to 100.6 10/17/17 evening. Occassionally has elevated temp < 99.9F in the evenings. UA without obvious signs of UTI. Respiratory panel negative Cr 0.86 this morning. -Blood cultures preliminary no growth -Additional blood cultures prelim no growth -Continue with Levaquin and Cefepime d5. -continue low dose lasix, watch bp closely Qualifiers: Sepsis type: sepsis due to unspecified organism Qualified Code(s): A41.9 - Sepsis, unspecified organism (3) CHF exacerbation Current Visit: Yes Status: Suspected Assessment and plan: Questionable due to bilateral pleural effusion noted on imaging. Redemonstration of pleural effusion on repeat CXR No prior history of CHF. Echo EF 55% -Continue low dose lasix -Monitor i/os and fluid restriction Qualifiers: Heart failure type: diastolic Qualified Code(s): I50.33 - Acute on chronic diastolic (congestive) heart failure (4) Pneumonia Current Visit: Yes Status: Suspected Assessment and plan: CXR revealed pulmonary edema and focal consolidation in Left upper airways. CTA revealed consolidateive changes bilateraly and bilateral pleural effusion and vascular engorgement. Repeat CXR revealed redemonstration of biilateral pleural effusion, small moderate size with adjacent airspace disease concerning for edema vs pneumonia vs atelectasis. CT Chest 10/19/17 revealed bilateral pleuroparenchymal changes improved. -Continue with Levaquin and Cefepime d5. Qualifiers: Pneumonia type: due to Pneumococcus Laterality: left Lung location: upper lobe of lung Qualified Code(s): J13 - Pneumonia due to Streptococcus pneumoniae (5) Acute respiratory failure with hypoxia Current Visit: Yes Status: Acute Assessment and plan: per plan in assessment above. (6) Early satiety Current Visit: Yes Status: Acute Assessment and plan: Reports eating very little and feeling full. Has had about 30Lb weight loss over past months, likely due to poor appetite. -hemoccult ordered -Nutrition consult ordered. -Consider Endoscopy if suspicion for malignancy, consult GI on Saturday. Due to history of diabetes, will trial reglan at this time. Has eaten at most 60% of meal and sporadic. If still no improvement to contact GI and determine whether needing endoscopy. (7) Weight loss Current Visit: Yes Status: Acute Assessment and plan: per plan in assessment above (8) Hyponatremia Current Visit: Yes Status: Chronic Assessment and plan: Improving. Na 132 this morning. (9) Atrial fibrillation Current Visit: Yes Status: Chronic Assessment and plan: History of afib not on anticoagulation. Continue per plan in assessment above. Cardio signed off. Qualifiers: Atrial fibrillation type: paroxysmal Qualified Code(s): I48.0 - Paroxysmal atrial fibrillation (10) Hypertension Current Visit: Yes Status: Chronic Assessment and plan: Bp well controlled. Will continue to monitor. Qualifiers: Hypertension type: essential hypertension Qualified Code(s): I10 - Essential (primary) hypertension (11) Diabetes mellitus Current Visit: No Status: Chronic Assessment and plan: insulin sliding scale Qualifiers: Diabetes mellitus type: type 2 Diabetes mellitus care home insulin use: without joint terminal attack controller use Diabetes mellitus complication status: with unspecified complications Qualified Code(s): E11.8 - Type 2 diabetes mellitus with unspecified complications (12) Hyperkalemia Current Visit: Yes Status: Resolved Assessment and plan: Resolved. Initially 5.2, currently 3.7 Continue monitoring labs. (13) History of prostate cancer Current Visit: No Status: Acute Assessment and plan: History of prostate cancer > 10 years ago. Reviewed old [employer] records. PSA at peak 04/17/2006 was 8.43 Last PSA completed after treatment 0.35 PSA returned back 0.48 - Time Spent With Patient Total time spent is greater than 50% in coordination of care (as documented) at patient's floor/unit and/or counseling patient: - Subjective Interval history: Mr. Perez reports doing the same this morning as yesterday. Breathing is better, still not much of an appetite. Denies nauseated feeling or vomiting. Denies bowel movement for a couple days and confirmed with nurse. Heart rate overnight average around 100bpm. Patient denies fevers, chills, sweats, nausea , vomiting, chest pain, abdominal pain, changes in bowels or bladder, dysuria, weakness, or loss of sensation. - Constitutional Vitals: Temp Pulse Resp BP Pulse Ox 96.8 F L 93 16 133/67 98 10/20/17 06:31 10/20/17 06:31 10/20/17 05:00 10/20/17 06:31 10/20/17 06:31 General appearance: Present: A&O X 2, pleasant, no acute distress, answers questions appropriately - Head Head exam: Present: atraumatic, normal inspection, normocephalic - Eye Eye exam: Present: EOMI, normal appearance - ENT ENT exam: Present: mucous membranes dry - Neck Neck exam general surgery: Present: full ROM, normal inspection - Respiratory Respiratory exam: Present: CTAB. Absent: rales, respiratory distress, rhonchi, wheezes - Cardiovascular Cardiovascular exam: Present: irregular rhythm, +S1, +S2 - GI/Abdominal GI/Abdominal exam: Present: normal bowel sounds, soft. Absent: distended, tenderness - Extremities Exam Extremities exam: Present: full ROM, normal inspection, warm, radial pulses palpable and symmetrical. Absent: pedal edema - Neurological Exam Neurological exam: Present: no focal deficits, strengths equal and symetr throughout. Absent: facial droop, speech deficit - Skin Skin exam: Present: dry, intact, normal color, warm. Absent: rash Internal Medicine: Result - Labs CBC & Chem 7: 10/20/17 09:18 10/20/17 09:18 Labs: Short CBC 10/20/17 Range/Units 09:18 WBC 8.2 (4.3-11.1) K/mcL Hgb 10.3 L (12.9-16.9) g/dL Hct 30.9 L (37.5-50.1) % Plt Count 225 (140-400) K/mcL Neutrophils # 7.0 (1.6-8.9) K/mcL BMP 10/20/17 09:18 Sodium 132 L Potassium 3.7 Chloride 97 L Carbon Dioxide 29 BUN 17 Creatinine 0.86 Glucose 204 H Calcium 8.9 - ABG Interpretation ABG results: ABG ABG pH 7.46 pH Units (7.32-7.45) H 10/16/17 14:34 ABG pCO2 30 mmHg (35-45) L 10/16/17 14:34 ABG pO2 80 mmHg (85-104) L 10/16/17 14:34 ABG O2 Saturation 97 % (95-98) 10/16/17 14:34 PT/INR, D-dimer PT 18.2 Seconds (9.4-12.1) H 10/16/17 14:47 - Impressions Impressions Abdomen/Pelvis CT 10/19/17 11:30 IMPRESSION: Bilateral pleuroparenchymal changes which have improved from the prior study. Differential of pulmonary edema, atelectasis and/or pneumonia is similar to that seen on the prior study. Slight interval increase in size of mediastinal adenopathy which is nonspecific. Adenopathy within the upper abdomen and retroperitoneum appears new compared to the study from 12/24/2016. Benign and malignant etiologies are within the differential. Small amount of ascites noted within the abdomen which could be related to underlying cardiac or renal dysfunction. Cholelithiasis. If the patient has tenderness in the right upper quadrant or elevated clinical concerns right upper quadrant ultrasound could always be considered to further evaluate. Prostatomegaly and irregularity of the prostate which is nonspecific given reported history of prostate cancer. Please correlate with patient's PSA levels. Moderate coronary artery calcification is noted. D/ / 10/19/2017 13:23:50 Santiago Peña MD / raven Interpreting Provider: Santiago Peña MD Chest CT 10/19/17 11:30 IMPRESSION: Bilateral pleuroparenchymal changes which have improved from the prior study. Differential of pulmonary edema, atelectasis and/or pneumonia is similar to that seen on the prior study. Slight interval increase in size of mediastinal adenopathy which is nonspecific. Adenopathy within the upper abdomen and retroperitoneum appears new compared to the study from 12/24/2016. Benign and malignant etiologies are within the differential. Small amount of ascites noted within the abdomen which could be related to underlying cardiac or renal dysfunction. Cholelithiasis. If the patient has tenderness in the right upper quadrant or elevated clinical concerns right upper quadrant ultrasound could always be considered to further evaluate. Prostatomegaly and irregularity of the prostate which is nonspecific given reported history of prostate cancer. Please correlate with patient's PSA levels. Moderate coronary artery calcification is noted. D/ / 10/19/2017 13:23:50 Santiago Peña MD / raven Interpreting Provider: Santiago Peña MD - VTE Documentation of Mechanical Device: Graduated compression elastic hosiery Consult Discharge Plan - Plan Referrals: Buck Stroud MD [Primary Care Provider] - 10/23/17 11:30 am <Anastacio Valentino - Last Filed: 10/20/17 18:27> Date of Encounter: 10/20/17 - Assessment and plan (1) Acute respiratory failure with hypoxia Current Visit: Yes Status: Acute (2) Diabetes mellitus Current Visit: No Status: Chronic Qualifiers: Diabetes mellitus type: type 2 Diabetes mellitus joint terminal attack controller insulin use: without joint terminal attack controller use Diabetes mellitus complication status: with unspecified complications Qualified Code(s): E11.8 - Type 2 diabetes mellitus with unspecified complications (3) Hypertension Current Visit: Yes Status: Chronic Qualifiers: Hypertension type: essential hypertension Qualified Code(s): I10 - Essential (primary) hypertension (4) Atrial fibrillation Current Visit: Yes Status: Chronic Qualifiers: Atrial fibrillation type: paroxysmal Qualified Code(s): I48.0 - Paroxysmal atrial fibrillation (5) Pneumonia Current Visit: Yes Status: Suspected Qualifiers: Pneumonia type: due to Pneumococcus Laterality: left Lung location: upper lobe of lung Qualified Code(s): J13 - Pneumonia due to Streptococcus pneumoniae (6) CHF exacerbation Current Visit: Yes Status: Suspected Qualifiers: Heart failure type: diastolic Qualified Code(s): I50.33 - Acute on chronic diastolic (congestive) heart failure (7) Atrial fibrillation with rapid ventricular response Current Visit: Yes Status: Acute (8) Hyponatremia Current Visit: Yes Status: Chronic (9) Sepsis Current Visit: Yes Status: Resolved Qualifiers: Sepsis type: sepsis due to unspecified organism Qualified Code(s): A41.9 - Sepsis, unspecified organism (10) Early satiety Current Visit: Yes Status: Acute (11) Weight loss Current Visit: Yes Status: Acute (12) History of prostate cancer Current Visit: No Status: Acute (13) Hyperkalemia Current Visit: Yes Status: Resolved - Time Spent With Patient Total time spent is greater than 50% in coordination of care (as documented) at patient's floor/unit and/or counseling patient: - Constitutional Vitals: Temp Pulse Resp BP Pulse Ox 97.3 F L 125 18 129/69 98 10/20/17 15:03 10/20/17 15:03 10/20/17 15:03 10/20/17 15:03 10/20/17 15:03 Internal Medicine: Result - Labs CBC & Chem 7: 10/20/17 09:18 10/20/17 09:18 Labs: Short CBC 10/20/17 Range/Units 09:18 WBC 8.2 (4.3-11.1) K/mcL Hgb 10.3 L (12.9-16.9) g/dL Hct 30.9 L (37.5-50.1) % Plt Count 225 (140-400) K/mcL Neutrophils # 7.0 (1.6-8.9) K/mcL BMP 10/20/17 09:18 Sodium 132 L Potassium 3.7 Chloride 97 L Carbon Dioxide 29 BUN 17 Creatinine 0.86 Glucose 204 H Calcium 8.9 - ABG Interpretation ABG results: ABG ABG pH 7.46 pH Units (7.32-7.45) H 10/16/17 14:34 ABG pCO2 30 mmHg (35-45) L 10/16/17 14:34 ABG pO2 80 mmHg (85-104) L 10/16/17 14:34 ABG O2 Saturation 97 % (95-98) 10/16/17 14:34 PT/INR, D-dimer PT 18.2 Seconds (9.4-12.1) H 10/16/17 14:47 - Impressions Impressions Abdomen/Pelvis CT 10/19/17 11:30 IMPRESSION: Bilateral pleuroparenchymal changes which have improved from the prior study. Differential of pulmonary edema, atelectasis and/or pneumonia is similar to that seen on the prior study. Slight interval increase in size of mediastinal adenopathy which is nonspecific. Adenopathy within the upper abdomen and retroperitoneum appears new compared to the study from 12/24/2016. Benign and malignant etiologies are within the differential. Small amount of ascites noted within the abdomen which could be related to underlying cardiac or renal dysfunction. Cholelithiasis. If the patient has tenderness in the right upper quadrant or elevated clinical concerns right upper quadrant ultrasound could always be considered to further evaluate. Prostatomegaly and irregularity of the prostate which is nonspecific given reported history of prostate cancer. Please correlate with patient's PSA levels. Moderate coronary artery calcification is noted. D/ / 10/19/2017 13:23:50 Santiago Peña MD / raven Interpreting Provider: Santiago Peña MD Chest CT 10/19/17 11:30 IMPRESSION: Bilateral pleuroparenchymal changes which have improved from the prior study. Differential of pulmonary edema, atelectasis and/or pneumonia is similar to that seen on the prior study. Slight interval increase in size of mediastinal adenopathy which is nonspecific. Adenopathy within the upper abdomen and retroperitoneum appears new compared to the study from 12/24/2016. Benign and malignant etiologies are within the differential. Small amount of ascites noted within the abdomen which could be related to underlying cardiac or renal dysfunction. Cholelithiasis. If the patient has tenderness in the right upper quadrant or elevated clinical concerns right upper quadrant ultrasound could always be considered to further evaluate. Prostatomegaly and irregularity of the prostate which is nonspecific given reported history of prostate cancer. Please correlate with patient's PSA levels. Moderate coronary artery calcification is noted. D/ 10/19/2017 13:23:50 Santiago Peña MD / raven Interpreting Provider: Santiago Peña MD - Attending Attestation I examined this patient and my medical decision-making was reviewed with the Resident Physician on 10/20/17. I agree with the documented findings, disposition and treatment plan as described except to the extent set forth below. Mr Perez is currently admitted for a fib and sepsis. He remains moderate to high risk due to potential for worsening clinical status. Mr Perez is feeling somewhat better. He still cannot eat. No fever or chills. No new issues. Exam alert Comfortable Mucus membranes dry Heart irreg Some wheeze noted I/P 1. A fib 2. pneumonia Further diagnoses and plan as above
--- NOTE | 2017-10-20 10:19 | Cardiology Progress Note ---
Date of Encounter: 10/20/17 Time of Encounter: 09:00 Assessment and Plan (1) Atrial fibrillation with rapid ventricular response Current Visit: Yes Status: Acute Per cardiology: -Known PAF. Now a.fib RVR in the setting of CAP, sepsis. -Denies palpiatation, fluttering. -Average HR previous 12 hours noted to be 100, a.fib. -On cardizem 30q6. ON BB in outpateint setting. Cardizem drip attempted, however patient became hypotensive. -Patient was given IV digoxin load yesterday -[id number] score. 6 (age, HTN, CHF, vascular disease, DM). Not on anticoagulation due to anemia, GI bleed. Educated on increased risk of CVA/ embolic event. -HR much improved with digoxin. Will start oral digoxin. Renal function normal today. -Consider switching cardizem to Cardizem CD 120mg daily prior to discharge. -Cardiology will sign off and will follow in outpatient setting. Follow up set. (2) Diastolic CHF Current Visit: Yes Status: Acute Per cardiology: -Known diastolic CHf. -Pleural effusions, pulmonary edema noted per chest x-ray. -On IV lasix. -Reports shortness of breath improvement today. -Net negative 1600ml. -Euvolemic on exam. -TTE 10/07/17 with LVEF 50-55%, indeterminate diastolic function, bi-atrial enlargement, moderate AR, possibly mild PMVL prolapse with mild MR, mild- moderate TR, mild TN, mild PH, no segmental wall motion abnormalities. -Strict i/os, fluid restriction, daily weights. -Will switch lasix to po. -Will continue to monitor in outpatient setting. Follow up set. Qualifiers: Heart failure chronicity: acute on chronic Qualified Code(s): I50.33 - Acute on chronic diastolic (congestive) heart failure Discussion w patient/family: The assessment and plan as outlined above was discussed with the patient who expressed understanding and agreement. All questions were answered. Thank you for involving us in the care of your patient. Please call with any questions. Discussed and reviewed with . Subjective Principal diagnosis: Pneumonia Interval history: Patient reports he is feeling somewhat better today. Denies chest pain. Objective Vital Signs, Last 4 Hours Temp Pulse BP Pulse Ox 10/20/17 06:31 96.8 F L 93 133/67 98 General: Conversant, No Apparent Distress HEENT: Atraumatic, Normocephaly, Mucus Membranes Moist Neck: No JVD, Normal carotid pulses Cardiac: Normal S1 and S2, No Murmur, Other (Irregularly irregular ) Lungs: Normal Breath Sounds, No Wheeze, Rales, Rhonchi Neuro: Alert and responsive, No focal deficits noted Abdomen: Soft, Non-Tender Skin: No rashes noted on visualized skin Musculoskeletal: No Chest Wall Tenderness Extremities: No Clubbing, No Cyanosis, No Edema, Normal Pulses Results 10/20/17 09:18 10/20/17 09:18 Lab Results Impressions Abdomen/Pelvis CT 10/19/17 11:30 IMPRESSION: Bilateral pleuroparenchymal changes which have improved from the prior study. Differential of pulmonary edema, atelectasis and/or pneumonia is similar to that seen on the prior study. Slight interval increase in size of mediastinal adenopathy which is nonspecific. Adenopathy within the upper abdomen and retroperitoneum appears new compared to the study from 12/24/2016. Benign and malignant etiologies are within the differential. Small amount of ascites noted within the abdomen which could be related to underlying cardiac or renal dysfunction. Cholelithiasis. If the patient has tenderness in the right upper quadrant or elevated clinical concerns right upper quadrant ultrasound could always be considered to further evaluate. Prostatomegaly and irregularity of the prostate which is nonspecific given reported history of prostate cancer. Please correlate with patient's PSA levels. Moderate coronary artery calcification is noted. D/ / 10/19/2017 13:23:50 Santiago Peña MD / raven Interpreting Provider: Santiago Peña MD Chest CT 10/19/17 11:30 IMPRESSION: Bilateral pleuroparenchymal changes which have improved from the prior study. Differential of pulmonary edema, atelectasis and/or pneumonia is similar to that seen on the prior study. Slight interval increase in size of mediastinal adenopathy which is nonspecific. Adenopathy within the upper abdomen and retroperitoneum appears new compared to the study from 12/24/2016. Benign and malignant etiologies are within the differential. Small amount of ascites noted within the abdomen which could be related to underlying cardiac or renal dysfunction. Cholelithiasis. If the patient has tenderness in the right upper quadrant or elevated clinical concerns right upper quadrant ultrasound could always be considered to further evaluate. Prostatomegaly and irregularity of the prostate which is nonspecific given reported history of prostate cancer. Please correlate with patient's PSA levels. Moderate coronary artery calcification is noted. D/ / 10/19/2017 13:23:50 Santiago Peña MD / raven Interpreting Provider: Santiago Peña MD Active Medications Acetaminophen (Tylenol) 500 mg PO Q6HR PRN PRN Reason: Fever Stop: 04/18/18 23:48 Last Admin: 10/18/17 00:56 Dose: 500 mg Albuterol/Ipratropium (Duoneb) 3 ml IH [id number] PRN PRN Reason: Shortness Of Breath/Wheezing Stop: 04/19/18 13:58 Aspirin (Aspirin Ec) 81 mg PO DAILY SONIA Stop: 04/18/18 09:01 Last Admin: 10/20/17 09:51 Dose: 81 mg Atorvastatin Calcium (Lipitor) 40 mg PO HS SONIA Stop: 04/17/18 21:01 Last Admin: 10/19/17 20:27 Dose: 40 mg Dextrose/Water (Dextrose 50% (Syg)) 25 ml IVP AD PRN PRN Reason: Hypoglycemia Stop: 04/18/18 11:37 Digoxin (Lanoxin) 0.125 mg PO DAILY SONIA Stop: 04/21/18 10:31 Diltiazem HCl (Cardizem) 30 mg PO Q6HR SONIA Stop: 04/19/18 18:01 Last Admin: 10/20/17 05:22 Dose: 30 mg Enoxaparin Sodium (Lovenox) 40 mg SQ 0600 SONIA PRN Reason: Protocol Stop: 04/17/18 19:02 Last Admin: 10/20/17 05:21 Dose: 40 mg Furosemide (Lasix) 20 mg IVP BIDDIURETIC SONIA Stop: 04/20/18 10:46 Last Admin: 10/20/17 09:51 Dose: 20 mg Glucagon (Glucagen) 1 mg IM ONCE PRN PRN Reason: Hypoglycemia Stop: 04/17/18 19:06 Glucose (Gluctose) 15 gm PO ONCE PRN PRN Reason: Hypoglycemia Stop: 04/18/18 11:37 Glucose (Gluctose) 30 gm PO ONCE PRN PRN Reason: Hypoglycemia Stop: 04/18/18 11:37 Cefepime HCl 1,000 mg/ Sterile (Water) 10 mls @ 300 mls/hr IVP Q12HR SONIA Stop: 04/18/18 06:01 Last Infusion: 10/20/17 05:27 Dose: Infused Levofloxacin/Dextrose (Levaquin Premix 750mg/150 Ml) 750 mg in 150 mls @ 100 mls/hr IVPB Q48H SONIA PRN Reason: Protocol Stop: 04/19/18 09:01 Last Admin: 10/20/17 09:53 Dose: 100 mls/hr Dextrose (Dextrose 5%) 1,000 mls @ 100 mls/hr IVC .Q10H PRN PRN Reason: HYPOGLYCEMIA Stop: 04/18/18 11:37 Metoclopramide HCl 20 mg/ (Sodium Chloride) 54 mls @ 108 mls/hr IVPB Q8H SONIA Stop: 10/20/17 16:01 Last Admin: 10/20/17 09:51 Dose: 108 mls/hr Insulin Human Lispro (Humalog) 0 units SQ TIDAC SONIA PRN Reason: Protocol Stop: 04/18/18 11:46 Last Admin: 10/20/17 07:52 Dose: Not Given Naloxone HCl (Narcan) 0.4 mg IVP Q2MIN PRN PRN Reason: SEE COMMENTS Stop: 04/17/18 19:06 Nitroglycerin (Nitroglycerin) 0.4 mg SL Q5MIN PRN PRN Reason: Chest Pain Stop: 04/17/18 19:02 Omeprazole (Prilosec) 40 mg PO DAILY@0630 SONIA PRN Reason: Protocol Stop: 04/17/18 19:03 Last Admin: 10/20/17 05:22 Dose: 40 mg Ondansetron HCl (Zofran) 4 mg IVP Q8HR PRN PRN Reason: Nausea And Vomiting Stop: 04/17/18 19:06 Oxycodone HCl (Oxycodone Oral Conc) 5 mg SL Q4H PRN; Protocol PRN Reason: mild to moderate pain Stop: 04/17/18 19:06 Oxycodone HCl (Oxycodone Oral Conc) 10 mg SL Q4H PRN; Protocol PRN Reason: Severe Pain Stop: 04/17/18 19:06 Tamsulosin HCl (Flomax) 0.4 mg PO DAILY SONIA PRN Reason: Protocol Stop: 04/18/18 09:01 Last Admin: 10/20/17 09:51 Dose: 0.4 mg Venlafaxine HCl (Effexor Xr) 150 mg PO DAILY SONIA PRN Reason: Protocol Stop: 04/18/18 09:01 Last Admin: 10/20/17 09:51 Dose: 150 mg Laboratory Tests 10/20/17 10/20/17 09:18 09:18 Hgb 10.3 L Creatinine 0.86 - Imaging and Cardiology Chest Xray: report reviewed Echo: report reviewed - EKG Interpretation EKG results cardiology: other (Telemetry reviewed with average HR previous 12 hours noted to be 100, a.fib. PVCs, couplets, 2 triplets noted.) - VTE Documentation of Mechanical Device: Graduated compression elastic hosiery Consult Discharge Plan - Plan Referrals: Buck Stroud MD [Primary Care Provider] - 10/23/17 11:30 am
[2017-10-20] MEDS: *HR* Digoxin 0.125 MG TABLET PO SCH (11:28)
[2017-10-20] MEDS: Furosemide 20 MG TABLET PO SCH (17:36)
[2017-10-21 05:15] LABS: Basophils % 0.4 %; Eosinophils # 0.4 K/mcL (0.0-0.6); Eosinophils % 4.4 %; Hematocrit 31.2 % (37.5-50.1); Hemoglobin 10.4 g/dL (12.9-16.9); Immature Granulocytes % 0.7 % (0-4); Lymphocytes # 0.8 K/mcL (0.6-4.6); Lymphocytes % 8.6 %; Mean Corpuscular HGB Conc 33.3 g/dL (31.6-35.5); Mean Corpuscular Hemoglobin 28.3 pg (28.0-33.3); Mean Corpuscular Volume 84.8 fL (83.0-100.0); Monocytes # 0.9 K/mcL (0.0-1.3); Neutrophils # 7.4 K/mcL (1.6-8.9); Platelet Count 251 K/mcL (140-400); Red Blood Count 3.68 M/mcL (4.19-5.50); Red Cell Distribution Width 14.7 % (11.5-14.5); Segmented Neutrophils % 76.9 %
[2017-10-21 05:37] LABS: BUN/Creatinine Ratio 26 (6-26); Blood Urea Nitrogen 22 mg/dL (8-23); Calcium 9.1 mg/dL (8.6-10.3); Carbon Dioxide 30 mEq/L (23-29); Chloride 95 mEq/L (98-107); Glucose 106 mg/dL (70-105); Osmolality,Calculated 278 (280-300); Potassium 3.9 mEq/L (3.5-5.1); Sodium 132 mEq/L (136-145); eGFR For African Americans > 60 (> 60); eGFR For Non-African Americans > 60 (> 60)
[2017-10-21] MEDS: Cefepime HCl 1,000 MG in Water for inj. (sterile) 20 ML 10 ML IVP SCH ×2 (05:54→17:56)
[2017-10-21] MEDS: *HR* Enoxaparin 40 MG/0.4 ML SYRINGE SQ SCH (05:55)
[2017-10-21] MEDS: Insulin LISPRO 300 UNITS/3 ML VIAL SQ SCH ×3 (07:45→17:30)
[2017-10-21] MEDS: Venlafaxine XR (24 HR) 150 MG CAP.ER.24H PO SCH (07:50)
[2017-10-21] MEDS: Aspirin Enteric Coated 81 MG Tablet PO SCH (07:50)
[2017-10-21] MEDS: *HR* Digoxin 0.125 MG TABLET PO SCH (07:50)
[2017-10-21] MEDS: Furosemide 20 MG TABLET PO SCH ×2 (07:50→17:56)
--- NOTE | 2017-10-21 11:41 | Internal Med Progress Note ---
Date of Encounter: 10/21/17 Time of Encounter: 11:39 - Assessment and plan (1) Acute respiratory failure with hypoxia Current Visit: Yes Status: Resolved Assessment and plan: Has improved with current treatment. Currently off oxygen. Continue supportive care. (2) Pneumonia Current Visit: Yes Status: Suspected Assessment and plan: CXR revealed pulmonary edema and focal consolidation in Left upper airways. CTA revealed consolidateive changes bilateraly and bilateral pleural effusion and vascular engorgement. Repeat CXR revealed redemonstration of biilateral pleural effusion, small moderate size with adjacent airspace disease concerning for edema vs pneumonia vs atelectasis. CT Chest 10/19/17 revealed bilateral pleuroparenchymal changes improved. -Currently on IV abx. Will complete 7 day course. Qualifiers: Pneumonia type: due to Pneumococcus Laterality: left Lung location: upper lobe of lung Qualified Code(s): J13 - Pneumonia due to Streptococcus pneumoniae (3) Diabetes mellitus Current Visit: No Status: Chronic Assessment and plan: insulin sliding scale Current appears fairly controlled. Qualifiers: Diabetes mellitus type: type 2 Diabetes mellitus mcc insulin use: without mcc use Diabetes mellitus complication status: without complication Qualified Code(s): E11.9 - Type 2 diabetes mellitus without complications (4) Hypertension Current Visit: Yes Status: Chronic Assessment and plan: Bp well controlled. Will continue to monitor. No changes for now. Qualifiers: Hypertension type: essential hypertension Qualified Code(s): I10 - Essential (primary) hypertension (5) Atrial fibrillation Current Visit: Yes Status: Chronic Assessment and plan: History of afib not on anticoagulation. Rate is controlled at this time. Qualifiers: Atrial fibrillation type: paroxysmal Qualified Code(s): I48.0 - Paroxysmal atrial fibrillation (6) CHF exacerbation Current Visit: Yes Status: Resolved Assessment and plan: Questionable due to bilateral pleural effusion noted on imaging. Redemonstration of pleural effusion on repeat CXR No prior history of CHF. Echo EF 55% -Continue low dose lasix -Monitor i/os and fluid restriction Much improved today. Will continue same management. Qualifiers: Heart failure type: diastolic Qualified Code(s): I50.33 - Acute on chronic diastolic (congestive) heart failure (7) Hyponatremia Current Visit: Yes Status: Chronic Assessment and plan: Improving. Na 132 this morning. Basically the same. (8) Sepsis Current Visit: Yes Status: Resolved Assessment and plan: Acute metabolic encephalopathy secondary to hypoxic respiratory failure due to sepsis from a community-acquired pneumonia unclear etiology combined with acute pulmonary edema, lactic acidosis CT angio revealed no PE, conslidative changes bilaterally with vascular engorgement and bilateral pleural effusion. Urine antigens negative. Lactic acid 2.0 Echo with EF 55%. Did have fever up to 100.6 10/17/17 evening. Occassionally has elevated temp < 99.9F in the evenings. UA without obvious signs of UTI. Respiratory panel negative Cr 0.86 this morning. -Resolved. Qualifiers: Sepsis type: sepsis due to unspecified organism Qualified Code(s): A41.9 - Sepsis, unspecified organism (9) Early satiety Current Visit: Yes Status: Acute Assessment and plan: Reports eating very little and feeling full. Has had about 30Lb weight loss over past months, likely due to poor appetite. -hemoccult ordered -Nutrition consult ordered. -Consider Endoscopy if suspicion for malignancy, consult GI on Saturday. Some improvement with Reglan. GI eval tomorrow. (10) Weight loss Current Visit: Yes Status: Acute Assessment and plan: per plan in assessment above (11) History of prostate cancer Current Visit: No Status: Acute Assessment and plan: History of prostate cancer > 10 years ago. Reviewed old [facility] records. PSA at peak 04/17/2006 was 8.43 Last PSA completed after treatment 0.35 PSA returned back 0.48 No issues presently. - Time Spent With Patient Total time spent is greater than 50% in coordination of care (as documented) at patient's floor/unit and/or counseling patient: - Subjective Interval history: Mr Perez is currently admitted for acute sepsis due to pneumonia and rapid a fib. He is to have endoscopy tomorrow. He remains moderate to high risk due to potential for worsening clinical status. Mr Perez feels OK. No fever or chills. Heart rate has been better controlled. BP OK. Not on oxygen at this time. Says he is also very constipated as well as no appetite. - Constitutional Vitals: Temp Pulse Resp BP Pulse Ox 97.1 F L 92 16 138/78 96 10/21/17 11:26 10/21/17 11:26 10/21/17 11:26 10/21/17 11:26 10/21/17 11:26 General appearance: Present: A&O X 2, pleasant, answers questions appropriately - Head Head exam: Present: atraumatic, normocephalic - Eye Eye exam: Present: conjuntiva pink - ENT ENT exam: Present: mucous membranes moist - Respiratory Respiratory exam: Present: CTAB. Absent: rales, respiratory distress, rhonchi, wheezes - Cardiovascular Cardiovascular exam: Present: irregular rhythm. Absent: bradycardia, tachycardia - GI/Abdominal GI/Abdominal exam: Present: soft. Absent: tenderness - Extremities Exam Extremities exam: Present: warm. Absent: tenderness - Neurological Exam Neurological exam: Present: alert, oriented X3, no focal deficits - Skin Skin exam: Present: dry, warm Internal Medicine: Result - Labs CBC & Chem 7: 10/21/17 04:06 10/21/17 04:06 Labs: Short CBC 10/21/17 Range/Units 04:06 WBC 9.6 (4.3-11.1) K/mcL Hgb 10.4 L (12.9-16.9) g/dL Hct 31.2 L (37.5-50.1) % Plt Count 251 (140-400) K/mcL Neutrophils # 7.4 (1.6-8.9) K/mcL BMP 10/21/17 04:06 Sodium 132 L Potassium 3.9 Chloride 95 L Carbon Dioxide 30 H BUN 22 Creatinine 0.86 Glucose 106 H Calcium 9.1 - ABG Interpretation ABG results: ABG ABG pH 7.46 pH Units (7.32-7.45) H 10/16/17 14:34 ABG pCO2 30 mmHg (35-45) L 10/16/17 14:34 ABG pO2 80 mmHg (85-104) L 10/16/17 14:34 ABG O2 Saturation 97 % (95-98) 10/16/17 14:34 PT/INR, D-dimer PT 18.2 Seconds (9.4-12.1) H 10/16/17 14:47 - VTE Documentation of Mechanical Device: Graduated compression elastic hosiery Consult Discharge Plan - Plan Referrals: Buck Stroud MD [Primary Care Provider] - 10/23/17 11:30 am
[2017-10-21] MEDS: levoFLOXacin 750 MG TABLET PO SCH (12:46)
[2017-10-21] MEDS: Diltiazem CD (24hr) 120 MG CAPSULE PO SCH (14:41)
--- NOTE | 2017-10-21 15:31 | Gastroenterology Consult Note ---
<PembretonHay Martinez - Last Filed: 10/21/17 15:28> Date of Encounter: 10/21/17 Time of Encounter: 10:55 - Assessment and plan (1) Early satiety Current Visit: Yes Status: Acute Assessment and plan: Patient is eating very little and feeling full. Plan for EGD tomorrow. Consider GE scan. (2) Decreased appetite Current Visit: Yes Status: Acute Assessment and plan: Consider appetite stimulant. (3) Weight loss Current Visit: Yes Status: Acute Assessment and plan: Patient reports 30 pound unintentional weight loss in the last 2-3 months. Plan for EGD and colonoscopy tomorrow. Clear liquid diet today, no red or purple. NPO at midnight. If unable tolerate NuLytely please use MiraLAX prep. If not clear by 6 AM, give 2 tap water enemas. (4) Diabetes mellitus Current Visit: No Status: Chronic Qualifiers: Diabetes mellitus type: type 2 Diabetes mellitus terminal make up operator insulin use: without residential use Diabetes mellitus complication status: without complication Qualified Code(s): E11.9 - Type 2 diabetes mellitus without complications - Time Spent With Patient Total time spent is greater than 50% in coordination of care (as documented) at patient's floor/unit and/or counseling patient: GI History of Present Illness - Data of Consult Patient: known to practice within the last 3 years Consult date: 10/21/17 Requesting Physician: Anastacio Valentino DO - Consult Narrative Reason for consult: Early satiety, weight loss, adenopathy on CT History of present illness: Mr. Perez is a 82 year old male with PMHx of DM, COPD, CAD, HLD, HTN, chronic anemia, Afib not on anticoagulation, diastolic CHF who presented to the ED with c/o severe shortness of breath associated with increased confusion, diaphoresis , two syncopal epsiodes without apparent secondary injury, and 2 episodes of nonbloody, nonbilious emesis. We have been consulted for early satiety, weight loss, and adenopathy on CT. He reports eating very litte and feeling full. He reports a 30 lbs weight loss over the past few months. He states he has not had a BM in 2-[address] A/P with adenopathy within the upper abdomen and retroperitoneum appears new compared to the study from 12/24/2016. Procedures: EGD 10/11/2016 Dr. Sena: Single inflammatory polyp, otherwise normal. NSAIDs: ASA Anticoagulation: None Past Med Surg Social Fam HX - Past Medical History Medical history: asthma, atrial fibrillation, CHF, coronary artery disease, diabetes, GI bleed, hyperlipidemia, hypertension, other Additional medical history: BPH Psychiatric history: depression - Past Surgical History Surgical History: no surgical history - Social History Smoking Status: Never smoker Smokeless Tobacco Status: No Alcohol use: none Drug use: none - Gastrointestinal Gastrointestinal: Present: as per HPI - Constitutional Constitutional: as per HPI - EENT Eyes: as per HPI Ears: Present: as per HPI Nose, mouth and throat: Present: as per HPI - Cardiovascular Cardiovascular ROS: Present: as per HPI - Respiratory Respiratory IM: Present: as per HPI - Genitourinary Genitourinary: Absent: change in color, Urinary frequency - Neurological ROS Neurological GI: Present: as per HPI - Hematologic/Lymphatic Hematologic/Lymphatic pediatric: Present: as per HPI - Musculoskeletal Musculoskeletal ROS GI: Present: as per HPI - Integumentary Integumentary GI: Present: as per HPI - Psychiatric ROS Psychiatric GI: Present: as per HPI - Endocrine Endocrine IM: Present: as per HPI - Constitutional Vitals: Temp Pulse Resp BP Pulse Ox 97.1 F L 92 16 138/78 96 10/21/17 11:26 10/21/17 11:26 10/21/17 11:26 10/21/17 11:26 10/21/17 11:26 General appearance: Present: cooperative, A&O X 3, no acute distress, answers questions appropriately - Head Head exam: Present: atraumatic, normocephalic - Eye Eye exam: Present: normal appearance, sclera anicteric - ENT ENT exam: Present: mucous membranes moist - Neck Neck exam general surgery: Present: normal inspection, trachea midline - Respiratory Respiratory exam: Present: decreased breath sounds, CTAB. Absent: rales, rhonchi - Cardiovascular Cardiovascular exam: Present: RRR, +S1, +S2 - GI/Abdominal GI/Abdominal exam: Present: soft, no peritoneal signs. Absent: distended, firm , guarding, tenderness - Rectal Rectal exam: Present: deferred - Extremities Exam Extremities exam: Present: warm - Neurological Exam Neurological exam: Present: no focal deficits - Psychiatric Psychiatric exam: Present: normal affect, normal mood - Skin Skin exam: Present: dry, intact, normal color, warm Results - Labs CBC & Chem 7: 10/21/17 04:06 10/21/17 04:06 Labs: Last Result Calcium 9.1 mg/dL (8.6-10.3) 10/21/17 04:06 Troponin I 0.03 ng/mL (< 0.04) 10/16/17 14:47 Triglycerides 92 mg/dL (< 150) 10/17/17 01:56 Entire Visit Hgb 10.4 g/dL (12.9-16.9) L 10/21/17 04:06 Hct 31.2 % (37.5-50.1) L 10/21/17 04:06 PT 18.2 Seconds (9.4-12.1) H 10/16/17 14:47 Total Bilirubin 1.0 mg/dL (0.3-1.0) 10/18/17 04:00 AST 58 Units/L (13-39) H 10/18/17 04:00 ALT 51 Units/L (7-52) 10/18/17 04:00 - ABG ABG results: ABG ABG pH 7.46 pH Units (7.32-7.45) H 10/16/17 14:34 ABG pCO2 30 mmHg (35-45) L 10/16/17 14:34 ABG pO2 80 mmHg (85-104) L 10/16/17 14:34 ABG O2 Saturation 97 % (95-98) 10/16/17 14:34 PT/INR, D-dimer PT 18.2 Seconds (9.4-12.1) H 10/16/17 14:47 Consult Discharge Plan - Plan Referrals: Buck Stroud MD [Primary Care Provider] - 10/23/17 11:30 am <Real Sena - Last Filed: 10/21/17 18:04> Date of Encounter: 10/21/17 Time of Encounter: 17:35 - Time Spent With Patient Total time spent is greater than 50% in coordination of care (as documented) at patient's floor/unit and/or counseling patient: GI History of Present Illness - Data of Consult Requesting Physician: Anastacio Valentino DO - Consult Narrative History of present illness: Mr. Perez is a 82 year old male - Constitutional Vitals: Temp Pulse Resp BP Pulse Ox 97.7 F 106 16 116/74 95 10/21/17 15:39 10/21/17 15:39 10/21/17 15:39 10/21/17 15:39 10/21/17 15:39 Results - Labs CBC & Chem 7: 10/21/17 04:06 10/21/17 04:06 Labs: Last Result Calcium 9.1 mg/dL (8.6-10.3) 10/21/17 04:06 Troponin I 0.03 ng/mL (< 0.04) 10/16/17 14:47 Triglycerides 92 mg/dL (< 150) 10/17/17 01:56 Entire Visit Hgb 10.4 g/dL (12.9-16.9) L 10/21/17 04:06 Hct 31.2 % (37.5-50.1) L 10/21/17 04:06 PT 18.2 Seconds (9.4-12.1) H 10/16/17 14:47 Total Bilirubin 1.0 mg/dL (0.3-1.0) 10/18/17 04:00 AST 58 Units/L (13-39) H 10/18/17 04:00 ALT 51 Units/L (7-52) 10/18/17 04:00 - ABG ABG results: ABG ABG pH 7.46 pH Units (7.32-7.45) H 10/16/17 14:34 ABG pCO2 30 mmHg (35-45) L 10/16/17 14:34 ABG pO2 80 mmHg (85-104) L 10/16/17 14:34 ABG O2 Saturation 97 % (95-98) 10/16/17 14:34 PT/INR, D-dimer PT 18.2 Seconds (9.4-12.1) H 10/16/17 14:47 - Attending Attestation I have personally performed a face to face evaluation on this patient. I have reviewed and agree with the care plan. History and Exam by me shows: Patient seen. Patient with the weight loss and anemia. Imaging also showing lymphadenopathy. Rec: EGD and colonoscopy and if unremarkable then will probably need biopsy of the lymph nodes
[2017-10-21] MEDS ORDERED: SODIUM CHLORIDE/NAHCO3/KCL/PEG 4,000 ML SOLN.RECON PO ONE (17:00)
[2017-10-21] MEDS: Budesonide/Formoterol 160/4.5 MDI IH SCH (20:21)
[2017-10-22 04:23] LABS: Hematocrit 31.2 % (37.5-50.1); Hemoglobin 10.4 g/dL (12.9-16.9); Mean Corpuscular HGB Conc 33.3 g/dL (31.6-35.5); Mean Corpuscular Hemoglobin 28.3 pg (28.0-33.3); Mean Platelet Volume 10.3 fL (9.4-12.4); Platelet Count 270 K/mcL (140-400); Red Blood Count 3.67 M/mcL (4.19-5.50); Red Cell Distribution Width 14.6 % (11.5-14.5)
[2017-10-22 04:42] LABS: BUN/Creatinine Ratio 20 (6-26); Blood Urea Nitrogen 17 mg/dL (8-23); Calcium 8.8 mg/dL (8.6-10.3); Carbon Dioxide 27 mEq/L (23-29); Chloride 96 mEq/L (98-107); Glucose 130 mg/dL (70-105); Osmolality,Calculated 279 (280-300); Potassium 4.1 mEq/L (3.5-5.1); Sodium 133 mEq/L (136-145); eGFR For African Americans > 60 (> 60); eGFR For Non-African Americans > 60 (> 60)
[2017-10-22] MEDS: Cefepime HCl 1,000 MG in Water for inj. (sterile) 20 ML 10 ML IVP SCH ×2 (05:21→16:49)
[2017-10-22] MEDS: *HR* Enoxaparin 40 MG/0.4 ML SYRINGE SQ SCH (05:21)
[2017-10-22] MEDS ORDERED: Polyethylene Glycol 3350 255 GM POWDER PO ONE (07:09)
[2017-10-22] MEDS: Budesonide/Formoterol 160/4.5 MDI IH SCH ×2 (08:00→19:57)
[2017-10-22] MEDS: Insulin LISPRO 300 UNITS/3 ML VIAL SQ SCH ×3 (09:56→16:37)
[2017-10-22] MEDS: Furosemide 20 MG TABLET PO SCH ×2 (10:02→16:49)
[2017-10-22] MEDS: Venlafaxine XR (24 HR) 150 MG CAP.ER.24H PO SCH (10:02)
[2017-10-22] MEDS: Lisinopril 20 MG TABLET PO SCH (10:02)
[2017-10-22] MEDS: levoFLOXacin 750 MG TABLET PO SCH (10:02)
[2017-10-22] MEDS: *HR* Digoxin 0.125 MG TABLET PO SCH (10:02)
[2017-10-22] MEDS: Diltiazem CD (24hr) 120 MG CAPSULE PO SCH (10:03)
[2017-10-22] MEDS: Aspirin Enteric Coated 81 MG Tablet PO SCH (10:03)
[2017-10-22] MEDS ORDERED: Propofol 500 MG/50 ML INFUS..BTL ONE (13:39)
[2017-10-22] MEDS ORDERED: *HR* PHENYLEPHRINE 1,000 MCG/10 ML SYRINGE IVP ONE (14:04)
[2017-10-22] MEDS ORDERED: 0.9 % Sodium Chloride 1,000 ML IVC SCH (14:15)
--- NOTE | 2017-10-22 14:38 | Anesthesia Evaluation PreOp ---
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 (right carotid steonsis) Other Medical History: Diabetes Type II (oral medications only), Other ( hyponatremia on admission, hx prostate ca) Anesthesia History: No Prior Anesthetic Complications Alcohol Use: none Drug use: none Medications and Allergies Albuterol Sulfate [Ventolin Hfa] 2 puff IH Q4H PRN 10/10/16 [History] Aspirin Enteric Coated [Aspirin EC] 81 mg PO DAILY 10/10/16 [History] Atorvastatin [Lipitor] 40 mg PO HS 10/10/16 [History] Budesonide/Formoterol 160/4.5 [Symbicort 160/4.5] 2 puff IH BIDR 10/10/16 [ History] Lisinopril [Zestril] 40 mg PO DAILY 10/10/16 [History] Sitagliptin Phos/Metformin HCl [Janumet 50-1,000 mg Tablet] 1 each PO BID [History] Tamsulosin [Flomax] 0.4 mg PO DAILY 10/10/16 [History] Venlafaxine XR (24 HR) [Effexor Xr] 150 mg PO DAILY 10/10/16 [History] Vit C/E/Zn/Coppr/Lutein/Zeaxan [Preservision Areds 2 Softgel] 1 cap PO BID 10/10 [History] Metoprolol [Lopressor] 75 mg PO BID #120 tablet 10/14/16 [Rx] Allopurinol [Zyloprim] 300 mg PO DAILY 10/16/17 [History] Furosemide [Lasix] 20 mg PO DAILY 10/16/17 [History] Glimepiride [Amaryl] 1 mg PO DAILY 10/16/17 [History] 3 Allergy/AdvReac Type Severity Reaction Status Date / Time pioglitazone Allergy Swelling Verified 10/10/16 15:05 of Lip/Tongue/Throat canagliflozin [From Invokana] AdvReac Dizziness Verified 10/10/16 15:05 - Meds/Allergy Pre-op Review Medications Reviewed: Yes Allergies Reviewed: Yes Beta Blockers on Current Med List: No Anesthesia Results - Labs 10/22/17 03:59 10/22/17 03:59 - Imaging EKG: report reviewed, image reviewed (A fib RVR) Additional studies: cards consult: Tres aguilar: Discussed and reviewed with , renal function at baseline today, will give IV digoxin load. -Will attempt to resume BB as BP will allow. -Will continue to monitor. Limited TTE: EV/EV limited echocardiogram Impressions: LVEF 55%. Normal LV chamber size and wall thickness. RV is mildly dilated. Function appears normal. Anesthesia Exam Last Vital Signs Temp 97.6 F 10/22/17 13:57 Pulse 88 10/22/17 13:57 Resp 16 10/22/17 13:57 BP 130/73 10/22/17 13:57 Pulse Ox 97 10/22/17 13:57 Weight: 70 kg NPO (# of Hours): > 8 hrs - HEENT Pupil (Motor): Pupils equal, EOMI Mallampati: III Teeth: Edentulous Denture Type: Upper: Complete, Lower: Complete - LUBE WORKER LOC: Oriented - Cardiac Rhythm: Regular Murmur: None - Pulmonary Breath Sounds: bilateral Clear Respiratory Effort: Symmetrical Anesthesia Assess/Plan ASA Score: 3 Modified [place] Scale for Level of Consciousness: Cooperative, oriented, and tranquil Anesthetic Plan: MAC Monitoring Plan: Standard Monitors Recovery Plan: PACU
--- NOTE | 2017-10-22 17:39 | Internal Med Progress Note ---
Date of Encounter: 10/22/17 Time of Encounter: 16:00 - Assessment and plan (1) Acute respiratory failure with hypoxia Current Visit: Yes Status: Resolved Assessment and plan: Has resolved. (2) Pneumonia Current Visit: Yes Status: Suspected Assessment and plan: CXR revealed pulmonary edema and focal consolidation in Left upper airways. CTA revealed consolidateive changes bilateraly and bilateral pleural effusion and vascular engorgement. Repeat CXR revealed redemonstration of biilateral pleural effusion, small moderate size with adjacent airspace disease concerning for edema vs pneumonia vs atelectasis. CT Chest 10/19/17 revealed bilateral pleuroparenchymal changes improved. -Currently on IV abx. Will complete 7 day course. Plan switch to PO at discharge (probably tomorrow). Qualifiers: Pneumonia type: due to Pneumococcus Laterality: left Lung location: upper lobe of lung Qualified Code(s): J13 - Pneumonia due to Streptococcus pneumoniae (3) Diabetes mellitus Current Visit: No Status: Chronic Assessment and plan: insulin sliding scale Current appears fairly controlled. Qualifiers: Diabetes mellitus type: type 2 Diabetes mellitus penitentiary insulin use: without teletype telegrapher use Diabetes mellitus complication status: without complication Qualified Code(s): E11.9 - Type 2 diabetes mellitus without complications (4) Hypertension Current Visit: Yes Status: Chronic Assessment and plan: Bp well controlled. Will continue to monitor. No changes for now. Qualifiers: Hypertension type: essential hypertension Qualified Code(s): I10 - Essential (primary) hypertension (5) Atrial fibrillation Current Visit: Yes Status: Chronic Assessment and plan: History of afib not on anticoagulation. Rate is controlled at this time. Qualifiers: Atrial fibrillation type: paroxysmal Qualified Code(s): I48.0 - Paroxysmal atrial fibrillation (6) CHF exacerbation Current Visit: Yes Status: Resolved Assessment and plan: Questionable due to bilateral pleural effusion noted on imaging. Redemonstration of pleural effusion on repeat CXR No prior history of CHF. Echo EF 55% -Continue low dose lasix -Monitor i/os and fluid restriction Much improved today. Will continue same management. Qualifiers: Heart failure type: diastolic Qualified Code(s): I50.33 - Acute on chronic diastolic (congestive) heart failure (7) Hyponatremia Current Visit: Yes Status: Chronic Assessment and plan: No acute change. (8) Sepsis Current Visit: Yes Status: Resolved Qualifiers: Sepsis type: sepsis due to unspecified organism Qualified Code(s): A41.9 - Sepsis, unspecified organism (9) Early satiety Current Visit: Yes Status: Acute Assessment and plan: Reports eating very little and feeling full. Has had about 30Lb weight loss over past months, likely due to poor appetite. -hemoccult ordered -Nutrition consult ordered. -Consider Endoscopy if suspicion for malignancy, consult GI on Saturday. Some improvement with Reglan. Endoscopy negative. Restart Reglan. May need appetite stimulant. (10) Weight loss Current Visit: Yes Status: Acute Assessment and plan: per plan in assessment above (11) History of prostate cancer Current Visit: No Status: Acute Assessment and plan: History of prostate cancer > 10 years ago. Reviewed old [facility] records. PSA at peak 04/17/2006 was 8.43 Last PSA completed after treatment 0.35 PSA returned back 0.48 No issues presently. - Time Spent With Patient Total time spent is greater than 50% in coordination of care (as documented) at patient's floor/unit and/or counseling patient: - Subjective Interval history: Mr Perez is currently admitted for acute sepsis due to pneumonia and rapid a fib. He is to have endoscopy tomorrow. He remains moderate to high risk due to potential for worsening clinical status. Mr Perez just returned from endoscopy. He feels OK. No fever or chills. No mass found on procedure. - Constitutional Vitals: Temp Pulse Resp BP Pulse Ox 97.6 F 78 13 109/60 95 10/22/17 16:06 10/22/17 16:06 10/22/17 16:06 10/22/17 16:06 10/22/17 16:06 General appearance: Present: A&O X 2, pleasant, answers questions appropriately - Head Head exam: Present: normocephalic - Eye Eye exam: Present: conjuntiva pink - ENT ENT exam: Present: mucous membranes moist - Respiratory Respiratory exam: Present: CTAB. Absent: rales, rhonchi, wheezes - Cardiovascular Cardiovascular exam: Present: irregular rhythm. Absent: tachycardia - GI/Abdominal GI/Abdominal exam: Present: soft. Absent: tenderness - Extremities Exam Extremities exam: Present: warm - Neurological Exam Neurological exam: Present: alert, oriented X3 - Skin Skin exam: Present: dry, warm Internal Medicine: Result - Labs CBC & Chem 7: 10/22/17 03:59 10/22/17 03:59 Labs: Short CBC 10/22/17 Range/Units 03:59 WBC 12.1 H (4.3-11.1) K/mcL Hgb 10.4 L (12.9-16.9) g/dL Hct 31.2 L (37.5-50.1) % Plt Count 270 (140-400) K/mcL BMP 10/22/17 03:59 Sodium 133 L Potassium 4.1 Chloride 96 L Carbon Dioxide 27 BUN 17 Creatinine 0.84 Glucose 130 H Calcium 8.8 - ABG Interpretation ABG results: ABG ABG pH 7.46 pH Units (7.32-7.45) H 10/16/17 14:34 ABG pCO2 30 mmHg (35-45) L 10/16/17 14:34 ABG pO2 80 mmHg (85-104) L 10/16/17 14:34 ABG O2 Saturation 97 % (95-98) 10/16/17 14:34 PT/INR, D-dimer PT 18.2 Seconds (9.4-12.1) H 10/16/17 14:47 - VTE Documentation of Mechanical Device: Graduated compression elastic hosiery Consult Discharge Plan - Plan Referrals: Buck Stroud MD [Primary Care Provider] - 10/23/17 11:30 am
[2017-10-23] MEDS: *HR* Enoxaparin 40 MG/0.4 ML SYRINGE SQ SCH (05:35)
[2017-10-23] MEDS: Cefepime HCl 1,000 MG in Water for inj. (sterile) 20 ML 10 ML IVP SCH (05:36)
[2017-10-23] MEDS: Budesonide/Formoterol 160/4.5 MDI IH SCH (07:53)
[2017-10-23] MEDS: Aspirin Enteric Coated 81 MG Tablet PO SCH (08:50)
[2017-10-23] MEDS: Diltiazem CD (24hr) 120 MG CAPSULE PO SCH (08:50)
[2017-10-23] MEDS: Insulin LISPRO 300 UNITS/3 ML VIAL SQ SCH ×2 (08:50→11:44)
[2017-10-23] MEDS: Venlafaxine XR (24 HR) 150 MG CAP.ER.24H PO SCH (08:50)
[2017-10-23] MEDS: Lisinopril 20 MG TABLET PO SCH (08:50)
[2017-10-23] MEDS: Furosemide 20 MG TABLET PO SCH (08:51)
[2017-10-23] MEDS: *HR* Digoxin 0.125 MG TABLET PO SCH (08:51)
[2017-10-23] MEDS: levoFLOXacin 750 MG TABLET PO SCH (08:51)
--- NOTE | 2017-10-23 11:11 | Discharge Summary ---
- NOTES TO OUTPATIENT PROVIDER Notes to Outpatient Provider: Mr Perez was admitted for acute pneumonia and rapid a fib. He was given IV abx and rate control. Due to his lack of appetite and weight loss he had EGD and colonoscopy that were negative. He was placed on Reglan which helped but may benefit from appetite stimulant. Heart rate now better controlled. 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 insulin use: without skilled nursing use Diabetes mellitus complication status: without complication Qualified Code(s): E11.9 - Type 2 diabetes mellitus without complications (4) Hypertension Priority: Secondary Status: Chronic Qualifiers: Hypertension type: essential hypertension Qualified Code(s): I10 - Essential (primary) hypertension (5) Atrial fibrillation Priority: Secondary Status: Chronic Qualifiers: Atrial fibrillation type: paroxysmal Qualified Code(s): I48.0 - Paroxysmal atrial fibrillation (6) CHF exacerbation Priority: Secondary Status: Resolved Qualifiers: Heart failure type: diastolic Qualified Code(s): I50.33 - Acute on chronic diastolic (congestive) heart failure (7) Hyponatremia Priority: Secondary Status: Chronic (8) Sepsis Priority: Secondary Status: Resolved Qualifiers: Sepsis type: sepsis due to unspecified organism Qualified Code(s): A41.9 - Sepsis, unspecified organism (9) Early satiety Priority: Secondary Status: Chronic (10) Weight loss Priority: Secondary Status: Acute (11) History of prostate cancer Priority: Secondary Status: Acute (12) Sepsis Priority: Secondary Status: Resolved Qualifiers: Sepsis type: sepsis due to unspecified organism Qualified Code(s): A41.9 - Sepsis, unspecified organism Hospital course: Mr. Perez is a 82 year old male with hx of prostate cancer and CHF presented to ED with increasing dyspnea. He was admitted with sepsis due to presumed pneumonia. Mr Perez was admitted to [facility]. He was started on IV fluids and abx. He had rapid a fib and meds were adjusted with improved control of rate. He completed course of abx. He did have issues with fluids and was diuresed with improvement. He had complaints of early satiety and weight loss and had EGD and colonoscopy which were negative. He was started on Reglan with some help. Today he is afebrile. Heart rate was high but responded to increased Cardizem dose. He is felt ready for discharge home with family. - Time Spent with Patient Total time spent providing and/or coordinating discharge services: 41min - Discharge Medications Prescriptions: Digoxin [Lanoxin] 0.125 mg PO DAILY #30 tablet Diltiazem CD (24hr) [Cardizem CD] 180 mg PO DAILY #30 cap.er.24h Metoclopramide [Reglan] 5 mg PO QIDAC #60 tablet Home Medications: Albuterol Sulfate [Ventolin Hfa] 2 puff IH Q4H PRN 10/10/16 [History] Aspirin Enteric Coated [Aspirin EC] 81 mg PO DAILY 10/10/16 [History] Atorvastatin [Lipitor] 40 mg PO HS 10/10/16 [History] Budesonide/Formoterol 160/4.5 [Symbicort 160/4.5] 2 puff IH BIDR 10/10/16 [ History] Lisinopril [Zestril] 40 mg PO DAILY 10/10/16 [History] Sitagliptin Phos/Metformin HCl [Janumet 50-1,000 mg Tablet] 1 each PO BID [History] Tamsulosin [Flomax] 0.4 mg PO DAILY 10/10/16 [History] Venlafaxine XR (24 HR) [Effexor Xr] 150 mg PO DAILY 10/10/16 [History] Vit C/E/Zn/Coppr/Lutein/Zeaxan [Preservision Areds 2 Softgel] 1 cap PO BID 10/10 [History] Allopurinol [Zyloprim] 300 mg PO DAILY 10/16/17 [History] Furosemide [Lasix] 20 mg PO DAILY 10/16/17 [History] Glimepiride [Amaryl] 1 mg PO DAILY 10/16/17 [History] Digoxin [Lanoxin] 0.125 mg PO DAILY #30 tablet 10/23/17 [Rx] Diltiazem CD (24hr) [Cardizem CD] 180 mg PO DAILY #30 cap.er.24h 10/23/17 [Rx] Metoclopramide [Reglan] 5 mg PO QIDAC #60 tablet 10/23/17 [Rx] Allergies/Adverse Reactions: 3 Allergy/AdvReac Type Severity Reaction Status Date / Time pioglitazone Allergy Swelling Verified 10/10/16 15:05 of Lip/Tongue/Throat canagliflozin [From Invokana] AdvReac Dizziness Verified 10/10/16 15:05 Date of admission: 10/16/17 19:05 Primary care physician: Buck Stroud MD Consults: 10/16/17 19:45 Consult to Pulmonology [CONS] Routine Consulting Provider: [facility] [place] Reason for Consult: resp failure , PNA Call Completed: No 10/19/17 01:27 Consult to Nutrition [CONS] Routine Comment: Consulting Provider: NUTRITION Reason for Dietary Consult: PO Supplementation 10/19/17 08:35 Consult to Cardiology [CONS] Routine Comment: Consulting Provider: [facility] [place] Reason for Consult: afib rvr Time Notified: 08:35 Call Completed: Yes 10/21/17 08:38 Consult to Gastroenterology [CONS] Routine Consulting Provider: [facility] [place] Reason for Consult: Early satiety, weight loss, adenopathy on CT. Currently NPO Time Notified: 08:40 Call Completed: Yes 10/21/17 13:42 Consult to Occupational Therapy [CONS] Routine Comment: Evaluate, develop and implement POC Reason for Consult: weakness Does patient have active BEDREST order?: No Is patient medically & hemodynamically stable?: Yes Consult to Physical Therapy [CONS] Routine Comment: Evaluate, develop and implement POC Reason for Consult: weakness Does patient have active BEDREST order?: No Is patient medically & hemodynamically stable?: Yes Discharging clinician: Anastacio Valentino Anticipated date of discharge: 10/23/17 - Constitutional Vitals: Temp Pulse Resp BP Pulse Ox 97.9 F 88 16 124/69 95 10/23/17 06:52 10/23/17 06:52 10/23/17 07:55 10/23/17 06:52 10/23/17 09:00 General appearance: Present: A&O X 3, pleasant, answers questions appropriately - Head Head exam: Present: normocephalic - Eye Eye exam: Present: conjuntiva pink - ENT ENT exam: Present: mucous membranes moist - Respiratory Respiratory exam: Present: CTAB. Absent: rales, rhonchi, wheezes - Cardiovascular Cardiovascular exam: Present: irregular rhythm. Absent: tachycardia - GI/Abdominal GI/Abdominal exam: Present: soft. Absent: tenderness - Extremities Exam Extremities exam: Present: warm. Absent: tenderness - Neurological Exam Neurological exam: Present: alert, oriented X3, no focal deficits - Skin Skin exam: Present: dry, warm - Patient Status Disposition: Home, Self-Care Condition: Fair Functional capacity at discharge: independent ambulation Overall status at discharge: patient is progressing back to baseline - Discharge Instructions Instructions: Diltiazem (By mouth), Digoxin (By mouth), Metoclopramide (By mouth), Atrial Fibrillation (DC), Syncope (DC) Follow Up With: Buck Stroud MD [Primary Care Provider] - 10/23/17 11:30 am - Diet and Activity Activity: increase activity as tolerated Diet: advance to your usual diet - VTE Documentation of Mechanical Device: Intermittent pneumatic compression device
[2017-10-23 11:29] VITALS: BP 141/70
== END 2017-10-23 15:29 | disposition home or self-care (01) | DRG 871 ==
LOC: EMEROO 13:54 → 2NENU 13:54 → SUATTDRO 19:05 → 2NENU 19:37
PROVIDERS: ADMIT Internal Medicine; ATTEND Internal Medicine
PROC: ENDOEBX (2017-10-22 14:05)